=== PATIENT | female | born 1945 | race Caucasian/White ===

== ENCOUNTER 2019-12-10 07:42 | Outpatient (REF) | payer MEDICARE, OTHER, SELFPAY ==
[2019-12-10 11:22] LABS: MANUAL DIFF FLAG NO
[2019-12-10 11:46] LABS: Basophils Percent Auto 0.6 % (0-2); Eosinophils Absolute Auto 0.1 X10*3/uL (0.0-0.4); Eosinophils Percent Auto 1.2 % (0-4); Hematocrit 38.3 % (37-47); Hemoglobin 12.4 g/dl (12.0-16.0); Imm Gran Abs Auto 0.01 X10*3/uL (0.00-0.03); Imm Gran Pct Auto 0.2 % (0.0-0.4); Lymphocytes Absolute Auto 1.6 X10*3/uL (1.2-4.9); Lymphocytes Percent Auto 24.9 % (20-40); Mean Corpuscular HGB Conc 32.4 g/dl (31.0-35.0); Mean Corpuscular Hemoglobin 26.8 pg (27.0-33.0); Mean Corpuscular Volume 82.7 fL (80-98); Mean Platelet Volume 10.7 fL (9.4-12.3); Monocytes Absolute Auto 0.6 X10*3/uL (0.1-1.2); Monocytes Percent Auto 8.9 % (2-11); Neutrophils Absolute Auto 4.2 X10*3/uL (2.0-8.3); Neutrophils Percent Auto 64.2 % (45-73); Platelet Count 263 X10*3/uL (160-400); Red Blood Count 4.63 X10*6/uL (4.20-5.50); Red Cell Distribution Width 14.1 % (11.0-16.0); White Blood Count 6.5 X10*3/uL (4.8-10.8)
[2019-12-10 11:58] LABS: Estimated Average Glucose 134 mg/dL; Hemoglobin A1c % 6.3 %
[2019-12-10 11:59] LABS: Alanine Aminotransferase 11 U/L (0-31); Albumin Level 4.2 g/dL (3.5-5.0); Alkaline Phosphatase 64 U/L (39-117); Anion Gap 16 (12-20); Aspartate Amino Transferase 14 U/L (5-31); Bilirubin Total 0.3 mg/dL (0.0-1.0); Blood Urea Nitrogen 16 mg/dL (9-16); Calcium 8.7 mg/dL (8.4-10.2); Carbon Dioxide 24 mmol/L (22-29); Chloride 106 mmol/L (96-108); Cholesterol 159 mg/dL; Estimated Glomerular Filt Rate > 60; Glucose Fasting 130 mg/dL (60-99); HDL Cholesterol 56 mg/dL; LDL Cholesterol Calculated 86 mg/dl; Potassium 4.7 mmol/l (3.3-5.1); Sodium 141 mmol/L (135-145); Total Protein 6.9 g/dL (6.5-8.0); Triglycerides 86 mg/dL
[2019-12-10 12:21] LABS: T4 Thyroxine 9.6 ug/dL (4.5-12.0); Thyroid Stimulating Hormone 1.47 mIU/mL (0.32-4.0)
[2019-12-10 12:34] LABS: Creatinine Urine 92.85 mg/dL; Microalbum/Creatinine Ratio Ur 7.5 ug/mg cr
== END 2019-12-10 07:43 | disposition home or self-care (01) ==
LOC: HO.HMGCLDS 07:42
PROVIDERS: PCP Internal Medicine; Visit Provider Internal Medicine
DX: E11.65 Type 2 diabetes mellitus with hyperglycemia (principal); E66.9 Obesity, unspecified; I10 Essential (primary) hypertension; E78.00 Pure hypercholesterolemia, unspecified; C34.90 Malignant neoplasm of unspecified part of unspecified bronchus or lung
CPT/HCPCS: 36415; 80053; 80061; 82043; 83036; 84436; 84443; 85025

== ENCOUNTER 2019-12-25 15:30 | Outpatient (REF) | payer MEDICARE, OTHER, SELFPAY ==
--- NOTE | 2019-12-25 15:34 | US_ITS ---
EXAMINATION: US EXTRACRANIAL CAROTID DUPLEX, BILATERAL CLINICAL INFORMATION: Peripheral vascular disease. Concern for carotid artery stenosis. COMPARISON: CT chest on 09/30/2019 TECHNIQUE: Real-time ultrasound and Doppler techniques (integrating B-mode 2-D vascular images, Doppler spectral analysis and color-flow Doppler imaging) were utilized to interrogate the extracranial carotid arteries, the vertebral arteries and proximal subclavian arteries bilaterally. The degree of stenosis is determined by criteria similar to NASCET. FINDINGS: Right Side: 1. There is mild atherosclerotic plaque seen in the bifurcation/proximal ICA region. 2. The common carotid artery PSV proximally is 94.4 cm/s and distally 72.7 cm/s. 3. The proximal internal carotid artery velocities are 47.4 cm/s systolic and 10.9 cm/s diastolic. 4. The proximal external carotid artery PSV is 79.2 cm/s. 5. The vertebral artery shows 63.3 flow. 6. The subclavian artery waveforms are 70.8. Left Side: 1. There is mild atherosclerotic plaque seen in the bifurcation/proximal ICA region. 2. The common carotid artery PSV proximally is 63.4 cm/s and distally 50.6 cm/s. 3. The proximal internal carotid artery velocities are 46.4 cm/s systolic and 15.8 cm/s diastolic. 4. The proximal external carotid artery PSV is 61.5 cm/s. 5. The vertebral artery shows antegrade flow. 6. The subclavian artery waveforms are normal. US/US carotid duplex BI IMPRESSION: 1. RIGHT: Minimal, non-hemodynamically significant stenosis of the proximal right internal carotid artery corresponding to a 0-49% stenosis by velocity criteria. 2. LEFT: Minimal, non-hemodynamically significant stenosis of the proximal left internal carotid artery corresponding to a 0-49% stenosis by velocity criteria.
== END 2019-12-25 15:31 | disposition home or self-care (01) ==
LOC: HO.HMGCX 15:30
PROVIDERS: PCP Internal Medicine; Visit Provider Internal Medicine
DX: I72.0 Aneurysm of carotid artery (principal); I73.9 Peripheral vascular disease, unspecified; E78.00 Pure hypercholesterolemia, unspecified
CPT/HCPCS: 93880

== ENCOUNTER 2020-04-15 11:21 | Outpatient (REF) | payer MEDICARE, OTHER, SELFPAY ==
--- NOTE | ~2020-04-15 | CT_ITS ---
EXAMINATION: CT CHEST WITHOUT CONTRAST CLINICAL INFORMATION: C34.12 - Malignant neoplasm of upper lobe, left bronchus. History squamous cell cancer. COMPARISON: CT chest noncontrast 09/30/2019, 03/27/2019 TECHNIQUE: Multidetector volumetric CT imaging of the chest was done. Axial MIP volume rendering provided. Sagittal and coronal reformatted images were obtained. This CT examination was performed using dose optimization techniques as appropriate, variously including the following: *Automated exposure control *Adjustment of mA and/or kV according to patient size (this includes techniques or standardized protocols for targeted exams where dose is matched to indication/reason for exam; i.e. extremities or head) *Use of iterative reconstruction technique DLP: 186 mGy-cm FINDINGS: LUNGS: There is been prior left upper lobectomy. Subpleural nodule lateral left lower lobe series 7/320 average dimension 4 mm is without significant change from the prior exams. The right lung has at least 4 nodules under 4 mm, stable. There is no new mass or nodule. Again, there are some fine bilateral accentuated subpleural reticular markings suggesting underlying interstitial lung disease. There is some geographic mosaic perfusion suggesting small airways disease. There is no central endobronchial lesion or bronchiectasis. No lobar or segmental airspace consolidation or interval groundglass opacity. MEDIASTINUM: No hilar or mediastinal adenopathy. No pericardial effusion. Thoracic aorta normal in caliber. Borderline sliding hiatal hernia. PLEURA: There is no pleural effusion. No pleural mass or thickening. AXILLA: No axillary or supraclavicular adenopathy. UPPER ABDOMEN: Gallstones and bilateral renal cysts again noted. OSSEOUS STRUCTURES: Mild degenerative changes thoracic spine. No suspicious bony lesion. CT/CT chest wo con IMPRESSION: Scattered small nodularity similar to prior exam. No interval enlargement or new nodularity. No adenopathy or effusion.
== END 2020-04-15 11:22 | disposition home or self-care (01) ==
LOC: HO.CT 11:21
PROVIDERS: Visit Provider Surgery
DX: C34.12 Malignant neoplasm of upper lobe, left bronchus or lung (principal)
CPT/HCPCS: 71250

== ENCOUNTER → 2020-04-17 09:20 | Outpatient (BNVA) | payer MEDICARE, OTHER, SELFPAY | PROVIDERS: PCP Internal Medicine; Visit Provider Surgery | DX: C34.12 Malignant neoplasm of upper lobe, left bronchus or lung (principal); Z79.82 Long term (current) use of aspirin; Z79.899 Other long term (current) drug therapy | CPT/HCPCS: 99212 ==

== ENCOUNTER 2020-08-03 08:49 | Outpatient (REF) | payer MEDICARE, OTHER, SELFPAY ==
[2020-08-03 11:23] LABS: MANUAL DIFF FLAG NO
[2020-08-03 11:30] LABS: Basophils Percent Auto 0.5 % (0-2); Eosinophils Absolute Auto 0.1 X10*3/uL (0.0-0.4); Eosinophils Percent Auto 1.6 % (0-4); Hematocrit 39.8 % (37-47); Hemoglobin 13.2 g/dl (12.0-16.0); Imm Gran Abs Auto 0.02 X10*3/uL (0.00-0.03); Imm Gran Pct Auto 0.3 % (0.0-0.4); Lymphocytes Absolute Auto 1.5 X10*3/uL (1.2-4.9); Lymphocytes Percent Auto 23.8 % (20-40); Mean Corpuscular HGB Conc 33.2 g/dl (31.0-35.0); Mean Corpuscular Volume 81.4 fL (80-98); Mean Platelet Volume 10.9 fL (9.4-12.3); Monocytes Absolute Auto 0.5 X10*3/uL (0.1-1.2); Monocytes Percent Auto 7.6 % (2-11); Neutrophils Absolute Auto 4.3 X10*3/uL (2.0-8.3); Neutrophils Percent Auto 66.2 % (45-73); Platelet Count 257 X10*3/uL (160-400); Red Blood Count 4.89 X10*6/uL (4.20-5.50); Red Cell Distribution Width 14.6 % (11.0-16.0); White Blood Count 6.4 X10*3/uL (4.8-10.8)
[2020-08-03 12:11] LABS: Estimated Average Glucose 131 mg/dL; Hemoglobin A1c % 6.2 %
[2020-08-03 12:13] LABS: Alanine Aminotransferase 11 U/L (0-31); Albumin Level 4.3 g/dL (3.5-5.0); Alkaline Phosphatase 60 U/L (39-117); Anion Gap 12 (12-20); Aspartate Amino Transferase 15 U/L (5-31); Bilirubin Total 0.6 mg/dL (0.0-1.0); Blood Urea Nitrogen 15 mg/dL (9-16); Calcium 9.8 mg/dL (8.4-10.2); Carbon Dioxide 27 mmol/L (22-29); Chloride 109 mmol/L (96-108); Cholesterol 167 mg/dL; Estimated Glomerular Filt Rate > 60; Glucose Random 117 mg/dL (60-115); HDL Cholesterol 56 mg/dL; LDL Cholesterol Calculated 91 mg/dl; Potassium 4.8 mmol/L (3.3-5.1); Sodium 143 mmol/L (135-145); Total Protein 7.1 g/dL (6.5-8.0); Triglycerides 102 mg/dL
[2020-08-03 12:14] LABS: Free T4 (Free Thyroxine) 1.16 ng/dL (0.71-1.85)
== END 2020-08-03 08:50 | disposition home or self-care (01) ==
LOC: HO.HMGCLDS 08:49
PROVIDERS: PCP Internal Medicine; Visit Provider Internal Medicine
DX: E11.65 Type 2 diabetes mellitus with hyperglycemia (principal); E78.00 Pure hypercholesterolemia, unspecified
CPT/HCPCS: 36415; 80053; 80061; 83036; 84439; 84443; 85025

== ENCOUNTER 2020-10-06 15:23 | Outpatient (REF) | payer MEDICARE, OTHER, SELFPAY ==
--- NOTE | ~2020-10-06 | CT_ITS ---
EXAMINATION: CT CHEST WITHOUT CONTRAST CLINICAL INFORMATION: Malignant neoplasm left upper lobe COMPARISON: Previous chest CT scans most recent 04/15/2020 TECHNIQUE: Multidetector volumetric CT imaging of the chest was done. Axial MIP volume rendering provided. Sagittal and coronal reformatted images were obtained. This CT examination was performed using dose optimization techniques as appropriate, variously including the following: *Automated exposure control *Adjustment of mA and/or kV according to patient size (this includes techniques or standardized protocols for targeted exams where dose is matched to indication/reason for exam; i.e. extremities or head) *Use of iterative reconstruction technique DLP: 165 mGy-cm FINDINGS: LUNGS: There are stable postsurgical changes following left upper lobe lobectomy. There are small pulmonary nodules that are stable. Largest pulmonary nodule measures 5 mm in the left lower lobe axial image 306 series 4. No new pulmonary nodule is seen. There is evidence of emphysema. There is evidence of interstitial lung disease with increased peripheral reticulation, increased parenchymal attenuation and traction bronchiolectasis. This does not appear appreciably changed. MEDIASTINUM: There are small mediastinal lymph nodes that are stable. No enlarged lymph nodes are seen. There is coronary artery calcification. Heart size is normal. There is a trace pericardial effusion. The thoracic aorta is normal in caliber. There is question of a wall thickening of the distal thoracic esophagus. PLEURA: There is mild left pleural thickening or tiny effusion. There is no right pleural effusion or pleural thickening. AXILLA: No lymphadenopathy. UPPER ABDOMEN: There is fullness of the left adrenal gland that is stable. There is a small left upper pole renal stone. There are small calcifications in the liver. This may be diverticulosis of the colon. OSSEOUS STRUCTURES: There are degenerative changes of the spine. CT/CT chest wo con IMPRESSION: Stable postsurgical changes following left upper lobe lobectomy. Stable small pulmonary nodules. Emphysema and interstitial lung disease. Question wall thickening of the distal thoracic esophagus.
== END 2020-10-06 15:24 | disposition home or self-care (01) ==
LOC: HO.CT 15:23
PROVIDERS: PCP Internal Medicine; Visit Provider Surgery
DX: C34.12 Malignant neoplasm of upper lobe, left bronchus or lung (principal)
CPT/HCPCS: 71250

== ENCOUNTER → 2020-10-16 11:03 | Outpatient (BNVA) | payer MEDICARE, OTHER, SELFPAY | PROVIDERS: PCP Internal Medicine; Visit Provider Surgery | DX: C34.12 Malignant neoplasm of upper lobe, left bronchus or lung (principal); Z79.899 Other long term (current) drug therapy; Z79.84 Long term (current) use of oral hypoglycemic drugs; Z90.2 Acquired absence of lung [part of] | CPT/HCPCS: 99212 ==

== ENCOUNTER 2020-10-26 12:37 | Emergency (ER) | payer MEDICARE, OTHER, SELFPAY ==
--- NOTE | 2020-10-26 | ECG_ITS ---
Test Reason : STROKE Blood Pressure : / mmHG Vent. Rate : 067 BPM Atrial Rate : 067 BPM P-R Int : 180 ms QRS Dur : 090 ms QT Int : 432 ms P-R-T Axes : 037 -02 028 degrees QTc Int : 456 ms Normal sinus rhythm Possible Left atrial enlargement Inferior infarct (cited on or before 08-AUG-2018) Cannot rule out Anterior infarct (cited on or before 08-AUG-2018) Abnormal ECG When compared with ECG of 08-AUG-2018 21:23, No significant change was found Referred By: Mj Young Electronically Signed By:OLGA LIDIA VINES
--- NOTE | ~2020-10-26 | CT_ITS ---
EXAMINATION: CT HEAD WITHOUT CONTRAST CLINICAL INFORMATION: Right facial droop COMPARISON: None TECHNIQUE: Contiguous axial imaging was performed from the skull base to vertex without intravenous administration of contrast. This CT examination was performed using dose optimization techniques as appropriate, variously including the following: *Automated exposure control *Adjustment of mA and/or kV according to patient size (this includes techniques or standardized protocols for targeted exams where dose is matched to indication/reason for exam; i.e. extremities or head) *Use of iterative reconstruction technique DLP: 672 mGy-cm FINDINGS: There is no evidence of acute intracranial hemorrhage or territorial infarction. No abnormal mass effect or midline shift is seen. Malave to white matter differentiation is well preserved. No extra-axial fluid collections are identified. The ventricles are normal in size. There is no abnormal attenuation within the brain parenchyma. The osseous structures and soft tissues are normal. The mastoid air cells and visualized portions of the paranasal sinuses are well aerated. CT/CT head/brain wo con IMPRESSION: Unremarkable exam.
[2020-10-26 13:35] VITALS: BP 170/100; PULSE 75; RESP 18; TEMP 36.6; O2SAT 100; BMI 30.4
--- NOTE | 2020-10-26 15:19 | ED_ITS ---
HPI - Neuro Symptoms/Deficit General Chief Complaint: Stroke Stated Complaint: possible Stroke Time Seen by Provider: 10/26/20 15:04 Source: patient Mode of arrival: ambulatory Limitations: no limitations History of Present Illness HPI Narrative: This is a 75-year-old female that presents from home 2 months of right-sided facial droop , that has worsened over the past week. She states that she is now unable to close her right eye, and at night she needs to close her eye to sleep. She is also complaining of intermittent right-sided neck pain, that feels like a spasm in nature that started around the same time but is worsening. At baseline she states she does not have the best vision, however over the past 2 months she has noted that her vision on her right side has been worsening. Nothing like this has ever happened to her before. Chest pain, shortness of breath, headaches, recent tick bites, recent fall, recent viral infections, fevers, chills, nausea, vomiting, abdominal pain. Past medical history significant for lung cancer, peripheral vascular disease, hypercholesterolemia, hypertension, diabetes. Onset (ago): month(s) (2) Location: right face History of same: No Severity: mild Relieving factors: none Exacerbating factors: none Context: gradual onset On Anticoagulants: Yes Related Data Home Medications Medication Instructions Recorded Confirmed aspirin 81 mg tablet,delayed 81 mg PO DAILY 12/17/19 10/16/20 release (Adult Low Dose Aspirin) Previous Rx's Medication Instructions Recorded glimepiride 4 mg tablet 4 mg PO DAILY #90 tab 03/24/20 lisinopril 2.5 mg tablet 2.5 mg PO DAILY #90 tab 03/24/20 metformin 1,000 mg tablet 1,000 mg PO BID #180 tab 03/24/20 artifi.tears(hypromellose)(PF) 0.3 1 drp OPHTHALMIC (EYE) Q1H PRN #10 10/26/20 % eye drops ml valacyclovir 1 gram tablet 1,000 mg PO TID 7 Days #21 tab 10/26/20 Allergies Allergy/AdvReac Type Severity Reaction Status Date / Time No Known Allergies Allergy Verified 08/12/20 12:29 [No Known Allergies*] Review of Systems Review of Systems: Yes all other systems are reviewed and are negative Constitutional: Constitutional: Denies body ache(s), Denies fatigue, Denies fever(s), Denies headache(s) and Denies malaise Eyes: Eyes: Reports change in vision (right eye ), Reports dry eyes (right ey e), Reports irritation (right eye) and Reports other (+ unable to close right eye ) ENT: Reports system reviewed and no additional complaints, except as documented, Reports as per HPI, Denies headache(s) and Reports neck pain (intermittent spasms to right side of neck) Cardiovascular: Cardiovascular: Reports no additional cardiovascular complaints Respiratory: Respiratory: Reports no additional respiratory complaints Gastrointestinal: Gastrointestinal: Reports no additional gastrointestinal complaints Genitourinary: Genitourinary: Reports no additional female genitourinary complaints Musculoskeletal: Musculoskeletal: Reports neck pain (intermittent spasms to right side of neck) Neurologic: Denies headache(s) Endocrine: Endocrine: Denies fatigue PMFSH Past Medical History Attestation statement: The following information was validated with the patient. Source: old records reviewed Medical History (Updated 10/26/20 @ 16:55 by Mj Young MD) Adrenal adenoma Carotid aneurysm, left Cholelithiasis Hypercholesterolemia Hypertension Lung cancer (~2018) Type 2 diabetes mellitus with hyperglycemia Surgical History (Updated 10/16/20 @ 13:44 by Monie Bacon PA-C) History of cataract surgery (~2019) History of lobectomy of lung (~2018) Family History Family History Father No problems noted. Mother Stroke Social History Social History Alcohol intake: never Patient Tobacco Use Status: Former Tobacco user Advance Directives: No Advance Directives Information Provided: No Physical Exam Vital Signs: Vital Signs: Last Vital Signs Temp 97.9 F 10/26/20 13:35 Pulse 75 10/26/20 13:35 Resp 18 10/26/20 13:35 BP 170/100 H 10/26/20 13:35 Pulse Ox 100 10/26/20 13:35 Body Mass Index 30.4 Const: General: cooperative and no acute distress Orientation/consciousness: oriented to person, oriented to place and oriented to time Limitations: no limitations HENMT: Head: Yes normal to inspection, Yes normocephalic and Yes atraumatic Ears: external ears normal General nose exam: Normal external nose present Face and sinus: No face symmetric and Yes other (Facial drooping to r. side of face, asymmetric wrinkling of forehead .) Mouth: Normal oral and palatal mucosa present Throat: Yes posterior oropharynx normal Eyes: General: appearance abnormal, both eyes Eyelids: Yes eyelid abnormality (Drooping of the eyelids noted on the right.), Yes lid lag (Right) and Yes other (Patient unable to close right eye.) Conjunctivae: conjunctivae normal Sclerae: sclerae normal Corneas: corneas normal Pupils: Equal, round and reactive pupils present EOM: EOMs intact bilaterally Direct Ophthalmoscopy: normal light reflex Neck: Neck: Yes normal visual inspection, Yes no lymphadenopathy, Yes trachea midline and Yes supple Chest: Chest palpation & inspection: normal inspection of the chest and normal palpation of entire chest wall Resp: Effort & Inspection: normal respiratory effort and able to speak in complete sentences Auscultation: clear to auscultation bilaterally Cardio: Rate: regular rate Rhythm: regular rhythm Heart sounds: S1 normal heart sound present, S2 normal heart sound present and no murmurs GI: Inspection: Yes normal to inspection Palpation (GI): Soft to palpation, nontender and no guarding Auscultation: normal bowel sounds : General: Yes no CVA tenderness Back/Spine/Pelvis: Back: no CVA tenderness Skin: General skin exam: no rashes or lesions noted Neuro: General: oriented to person, oriented to place, oriented to time, moves all extremities and CN's II-XI intact bilaterally (CN 7 palsey with right sided facial droop) Cranial nerves: Yes CN's II-XII intact bilaterally and Yes Equal, round and reactive pupils present Cognition (Neuro): normal cognition Gait exam (Neuro): Normal gait present Motor exam (neuro): 5/5 motor strength present throughout Sensory Exam: Normal double simultaneous stimulation for sensation Coordination: [id number] test normal Extrem: General: Yes normal to inspection Right upper extremity: normal to inspection Left upper extremity: normal to inspection Right lower extremity: normal to inspection Left lower extremity: normal to inspection Psych: Appearance: grossly normal Mental Status: mental status grossly normal Speech and movement: Normal speech and movement present Affect: normal affect Attitude: cooperative Thought process: Normal thought process present Thought content: Normal thought content present Course Course Course Narrative: This is a 75-year-old female but presenting from home with complaints of 2 months of facial drooping, and inability to close the right eye. She states that this has progressively worsened. This is never happened to her before. Is for right-sided facial drooping, and inability to close the right eye. She is able to wrinkle her forehead, however left cell on the right-hand side. Sensation intact. 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 Unlikely that this is a stroke. However a CT will be ordered to rule out stoke Reevaluation(s) Reevaluation #1: Reviewed patients CT no signs of stroke, patients history, physical and laboratory studies consistent with [place] Palsy. Patient symptoms >3 days prednisone not indicated she will be DC home on valacyclovir 1000mg TID for one week. Safe for DC home with follow up with PCP in two days Time: 16:57 [facility] - Neuro Symptoms/Deficit Imaging Data CT scan - head: Attestation: I personally reviewed and interpreted this imaging study as follows: Radiologist's impression: FINDINGS: There is no evidence of acute intracranial hemorrhage or territorial infarction. No abnormal mass effect or midline shift is seen. Malave to white matter differentiation is well preserved. No extra-axial fluid collections are identified. The ventricles are normal in size. There is no abnormal attenuation within the brain parenchyma. The osseous structures and soft tissues are normal. The mastoid air cells and visualized portions of the paranasal sinuses are well aerated. ? CT/CT head/brain wo con IMPRESSION: Unremarkable exam. Discharge Plan Discharge Clinical Impression: [place] palsy Patient Disposition: Home, Self-Care Instructions: [place] Palsy (ED) Additional Instructions: Apply two drops of artificial tears to right eye every hour while awake to prevent dryness and irritation to eye Apply a cup eye patch to eye while sleeping at night to prevent scratching your eye You were prescribed an antiviral medication valacyclovir take this medication three times a day for one week. Follow up with PCP in two days Tick borne panel pending at this time, it is important you follow up with your doctor to review these results. If you have lyme disease you will have to be treated. Return to the emergency department with new or worsening symptoms Prescriptions: New valacyclovir 1 gram tablet 1,000 mg PO TID 7 Days Qty: 21 RF: 0 artifi.tears(hypromellose)(PF) 0.3 % drops 1 drp ophthalmic (eye) Q1H PRN (Reason: dry eye(s)) Qty: 10 RF: 0 No Action aspirin [Adult Low Dose Aspirin] 81 mg tablet,delayed release (DR/EC) 81 mg PO DAILY RF: 0 metformin 1,000 mg tablet 1,000 mg PO BID Qty: 180 RF: 3 lisinopril 2.5 mg tablet 2.5 mg PO DAILY Qty: 90 RF: 3 glimepiride 4 mg tablet 4 mg PO DAILY Qty: 90 RF: 3 Referrals: Po,Rigoberto Lugo MD [Primary Care Provider] - 2 days
[2020-10-28 16:37] LABS: A. Phagocytphilium DNA,RT-PCR NOT DETECTED (NOT DETECTED); Babesia Microti DNA, RT-PCR NOT DETECTED (NOT DETECTED); Borrelia Miyamotoi,DNA RT-PCR NOT DETECTED (NOT DETECTED); E.Chaffeensis DNA RT-PCR NOT DETECTED (NOT DETECTED); Lyme(Borrelia ssp)DNA RT-PCR NOT DETECTED (NOT DETECTED); Source-Tick borne disease BLOOD
== END 2020-10-26 17:53 | disposition home or self-care (01) ==
PROVIDERS: Emergency Provider Emergency Medicine Emergency Medical Services; PCP Internal Medicine
DX: G51.0 Bell's palsy (principal); R06.02 Shortness of breath; R07.9 Chest pain, unspecified; Z79.899 Other long term (current) drug therapy; Z79.82 Long term (current) use of aspirin
CPT/HCPCS: 36415; 70450; 87798; 87801; 93005; 99283; 99284

== ENCOUNTER 2021-06-23 08:35 | Outpatient (REF) | payer MEDICARE, OTHER, SELFPAY ==
[2021-06-23 11:39] LABS: MANUAL DIFF FLAG NO
[2021-06-23 11:43] LABS: Basophils Percent Auto 0.5 % (0-2); Eosinophils Absolute Auto 0.2 X10*3/uL (0.0-0.4); Eosinophils Percent Auto 2.2 % (0-4); Hematocrit 38.5 % (37.0-47.0); Hemoglobin 12.6 g/dl (12.0-16.0); Imm Gran Abs Auto 0.02 X10*3/uL (0.00-0.03); Imm Gran Pct Auto 0.3 % (0.0-0.4); Lymphocytes Absolute Auto 1.3 X10*3/uL (1.2-4.9); Lymphocytes Percent Auto 17.9 % (20-40); Mean Corpuscular HGB Conc 32.7 g/dl (31.0-35.0); Mean Corpuscular Hemoglobin 27.3 pg (27.0-33.0); Mean Corpuscular Volume 83.5 fL (80.0-98.0); Mean Platelet Volume 10.5 fL (9.4-12.3); Monocytes Absolute Auto 0.8 X10*3/uL (0.1-1.2); Monocytes Percent Auto 10.8 % (2-11); Neutrophils Absolute Auto 5.1 x10*3/uL (2.0-8.3); Neutrophils Percent Auto 68.3 % (45-73); Platelet Count 249 X10*3/uL (160-400); Red Blood Count 4.61 X10*6/uL (4.20-5.50); White Blood Count 7.4 X10*3/uL (4.8-10.8)
[2021-06-23 12:00] LABS: Alanine Aminotransferase 21 U/L (0-31); Albumin Level 4.3 g/dL (3.5-5.0); Alkaline Phosphatase 59 U/L (39-117); Anion Gap 14 (12-20); Aspartate Amino Transferase 21 U/L (5-31); Bilirubin Total 0.5 mg/dL (0.0-1.0); Blood Urea Nitrogen 16 mg/dL (9-16); Calcium 10.2 mg/dL (8.4-10.2); Carbon Dioxide 24 mmol/L (22-29); Chloride 108 mmol/L (96-108); Cholesterol 161 mg/dL; Estimated Glomerular Filt Rate 58; Glucose Random 168 mg/dL (60-115); HDL Cholesterol 46 mg/dL; LDL Cholesterol Calculated 90 mg/dl; Potassium 4.8 mmol/L (3.3-5.1); Sodium 141 mmol/L (135-145); Total Protein 7.4 g/dL (6.5-8.0); Triglycerides 128 mg/dL
[2021-06-23 12:22] LABS: Free T4 (Free Thyroxine) 1.32 ng/dL (0.71-1.85)
[2021-06-23 14:36] LABS: Creatinine Urine 129.07 mg/dL; Microalbum/Creatinine Ratio Ur 10.8 ug/mg cr
[2021-06-23 15:15] LABS: Folate > 20.0 ng/mL (> or = 4.0)
[2021-06-23 15:53] LABS: Vitamin B12 210 pg/mL (200-900)
== END 2021-06-23 08:36 | disposition home or self-care (01) ==
LOC: HO.HMGCLDS 08:35
PROVIDERS: PCP Internal Medicine; Visit Provider Internal Medicine
DX: E11.65 Type 2 diabetes mellitus with hyperglycemia (principal); E78.00 Pure hypercholesterolemia, unspecified; M81.0 Age-related osteoporosis without current pathological fracture
CPT/HCPCS: 36415; 80053; 80061; 82043; 82306; 82607; 82746; 84439; 84443; 85025

== ENCOUNTER 2021-09-20 12:53 | Outpatient (REF) | payer MEDICARE, OTHER, SELFPAY ==
--- NOTE | ~2021-09-20 | CT_ITS ---
EXAMINATION: CT CHEST WITHOUT CONTRAST CLINICAL INFORMATION: Malignant neoplasm of upper lobe, left bronchus. COMPARISON: CT chest 10/06/2020. TECHNIQUE: Multidetector volumetric CT imaging of the chest was done. Axial MIP volume rendering provided. Sagittal and coronal reformatted images were obtained. This CT examination was performed using dose optimization techniques as appropriate, variously including the following: *Automated exposure control *Adjustment of mA and/or kV according to patient size (this includes techniques or standardized protocols for targeted exams where dose is matched to indication/reason for exam; i.e. extremities or head) *Use of iterative reconstruction technique DLP: 148 mGy-cm. FINDINGS: DECORATOR CONSULTANT: Unremarkable. LUNGS: Post left upper lobectomy changes with loss of left hemithorax and mild ipsilateral mediastinal shift is noted. There is diffuse ground-glass opacity and reticular interstitial changes in both lower lobes slightly greater on the left side. There are subpleural reticular interstitial changes in right upper lobe, right middle lobe and right lower lobe. There are subcentimeter small pulmonary nodules which are stable. The largest nodule is a 7 mm pulmonary nodule, subpleural based, in left lower lobe axial image 321/5. There is a 5 mm nodule right lower lobe axial image 342/5, previously measured 4 mm. There is no bronchiectasis or bronchial secretions. There are scattered parenchymal cystic changes are seen in both lower lobes and right upper lobe. MEDIASTINUM: The thyroid lobes are symmetrical an heterogeneous with likely nodules. The isthmus is prominent with likely nodule. Central trachea and the bronchi appear widely patent. There is atherosclerotic changes of the thoracic aorta without aneurysmal dilatation. There are small shotty lymph nodes in the mediastinum. Heart size is within normal limits. There are coronary artery calcifications present. No pericardial effusion seen. PLEURA: There is minimal left posterior pleural thickening. No evidence of effusion. AXILLA: No abnormal-sized lymph nodes. The chest wall is unremarkable. UPPER ABDOMEN: Visualized liver, spleen and adrenal glands and pancreas are unremarkable. OSSEOUS STRUCTURES: No aggressive lytic or sclerotic process seen. CT/CT chest wo con IMPRESSION: Status post left upper lobectomy changes. There are ground-glass changes, reticular interstitial prominence and subcentimeter pulmonary nodules in both lower lobes. Subpleural reticular interstitial changes are seen throughout the lungs. The largest pulmonary nodule is 7 mm left lower lobe and a 5 mm nodule right lower lobe, minimally larger from previous study. No new nodules seen. No abnormal mediastinal or axillary lymphadenopathy. Heterogeneous thyroid gland with a nodule of the isthmus. Fleischner guidelines were followed.
== END 2021-09-20 12:54 | disposition home or self-care (01) ==
LOC: HO.CT 12:53
PROVIDERS: PCP Internal Medicine; Visit Provider Surgery
DX: C34.12 Malignant neoplasm of upper lobe, left bronchus or lung (principal)
CPT/HCPCS: 71250

== ENCOUNTER → 2021-10-15 11:01 | Outpatient (BNVA) | payer MEDICARE, OTHER, SELFPAY | PROVIDERS: PCP Internal Medicine; Visit Provider Surgery | DX: C34.12 Malignant neoplasm of upper lobe, left bronchus or lung (principal) | CPT/HCPCS: 99212 ==

== ENCOUNTER 2021-10-25 09:52 | Inpatient (IN) | payer MEDICARE, OTHER, SELFPAY ==
[2021-10-25] VITALS (8 sets, daily range): BP systolic 112–155; BP diastolic 71–91; PULSE 77–104; RESP 17–24; TEMP 36.6–36.9; O2SAT 72–95; BMI 28.7
--- NOTE | ~2021-10-25 | XR_ITS ---
EXAMINATION: XR CHEST CLINICAL INFORMATION: Pneumonitis. COMPARISON: CTA chest and chest radiograph dated 10/25/2021. TECHNIQUE: Frontal and lateral views of the chest were obtained. FINDINGS: The heart, great vessels, pulmonary vasculature and mediastinum are stable. There is persistent airspace disease seen at the medial left base. There is lesser right upper lobe interstitial infiltrate, without focal resolution. Mild pulmonary vascular congestion is noted. There is bilateral bronchiolar wall thickening. No pleural effusion or pneumothorax is seen. There is no acute osseous abnormalities. XR/XR chest 2V IMPRESSION: 1. There is persistent airspace disease at the medial right base, and lesser right upper lobe interstitial infiltrate is noted. 2. There is bilateral bronchiolar wall thickening, which can be associated with acute bronchiolitis or reactive airways disease.
--- NOTE | ~2021-10-25 | CT_ITS ---
EXAMINATION: CT ANGIOGRAM OF THE CHEST WITH AND WITHOUT CONTRAST (CT PULMONARY ANGIOGRAM FOR PE) CLINICAL INFORMATION: Shortness of breath, hypoxia, and tachycardia. COMPARISON: CT scans dating between September 20, 2021 and August 08, 2018. TECHNIQUE: Prior to contrast administration, noncontrast localization images were obtained. Subsequently, multidetector volumetric imaging was performed from the thoracic inlet to below the diaphragms following the administration of 65 mL Omnipaque 350 intravenous contrast. No contrast reaction reported Sagittal, coronal, and MIP oblique sagittal reformatted images were obtained on the CT workstation, uploaded to PACS, and reviewed. This CT examination was performed using dose optimization techniques as appropriate, variously including the following: *Automated exposure control *Adjustment of mA and/or kV according to patient size (this includes techniques or standardized protocols for targeted exams where dose is matched to indication/reason for exam; i.e. extremities or head) *Use of iterative reconstruction technique Total exam dose-length product 246 mGy-cm FINDINGS: QUALITY OF STUDY/CONTRAST BOLUS: Satisfactory. PULMONARY ARTERIES: No central or segmental pulmonary emboli. THORACIC AORTA: No aneurysm or dissection. LUNG/PLEURA: Status post left upper lobectomy with associated shift of the mediastinum toward the left, unchanged. Extensive, diffuse, bilateral interstitial prominence with Sarwat B-lines and superimposed groundglass lung parenchymal densities, worse compared with September 20, 2021. Mild bibasilar bronchiectasis. Small bilateral pleural effusions, right greater than left. No pneumothorax. MEDIASTINUM: Subcarinal node measuring up to approximately 2 cm in short axis (image 22, series 5). On most recent prior this measured approximately 1.1 cm. Approximately 1.3 cm or less, bilateral hilar nodes. These are difficult to compare with priors, which were performed without the benefit of intravenous contrast Heart upper normal in size to mildly enlarged. No pericardial effusion. No evidence of septal bowing or right heart strain. CHEST WALL/AXILLA: No axillary or internal mammary lymphadenopathy by size criteria. OSSEOUS STRUCTURES: No acute finding. UPPER ABDOMEN: Partially imaged gallstone. No evidence of pericholecystic inflammatory change. Nodular adrenal glands, bilaterally, unchanged over at least 3 years. No reflux of contrast into the hepatic veins to suggest elevated right heart pressures. CT/CT angio chest PE protocol IMPRESSION: No evidence of pulmonary embolism. Status post left upper lobectomy with associated shift of the mediastinum toward the left, unchanged compared with most recent prior study dated September 20, 2021. Extensive, diffuse, bilateral interstitial prominence with Sarwat B-lines and superimposed groundglass lung parenchymal densities, worse compared with September 20, 2021. Small bilateral pleural effusions, right greater than left. Mediastinal and bilateral hilar adenopathy. Mild bibasilar traction bronchiectasis. Differential diagnosis of these findings is extensive and includes, but is not limited to, some combination of pulmonary edema, chronic interstitial fibrotic changes and small airways disease, lymphangitic spread of tumor, etc. VTE: negative
--- NOTE | ~2021-10-25 | XR_ITS ---
EXAMINATION: XR CHEST CLINICAL INFORMATION: Shortness of breath COMPARISON: Chest radiograph 09/21/2018, CT chest noncontrast 09/20/2021 TECHNIQUE: Portable upright AP view of the chest was obtained. FINDINGS: There are subtle groundglass opacities bilateral lung. There is no confluent lobar or segmental airspace consolidation or visible effusion. There is mild coarsening of the bronchovascular markings. No engorgement of the central vasculature. Heart size within normal. XR/XR chest 1V IMPRESSION: Subtle scattered bilateral groundglass opacities. No effusion.
--- NOTE | ~2021-10-25 | XR_ITS ---
EXAMINATION: XR CHEST CLINICAL INFORMATION: Hypoxia COMPARISON: 10/27/2021 TECHNIQUE: 2 views of the chest were obtained. FINDINGS: Airspace opacities in the left mid and lower lung zone with air bronchograms are again evident. Pulmonary vascular congestion and redistribution are suspected. There are no gross pleural effusions. The cardiomediastinal silhouette is stable. XR/XR chest 2V IMPRESSION: 1. No significant change in left lower lobe and lingular infiltrative changes. 2. Probable pulmonary vascular congestion and redistribution.
--- NOTE | 2021-10-25 10:11 | ECG_ITS ---
Test Reason : SOB Blood Pressure : / mmHG Vent. Rate : 093 BPM Atrial Rate : 093 BPM P-R Int : 164 ms QRS Dur : 078 ms QT Int : 396 ms P-R-T Axes : 041 -11 011 degrees QTc Int : 492 ms Normal sinus rhythm Inferior infarct (cited on or before 08-AUG-2018) Anterolateral infarct (cited on or before 08-AUG-2018) Abnormal ECG When compared with ECG of 26-OCT-2020 16:34, T wave inversion now evident in Anterior leads Referred By: Generic ED Physician Electronically Signed By:OLGA LIDIA VINES
--- NOTE | 2021-10-25 10:27 | ED.GENADULT ---
HPI - General Adult General Chief complaint: Upper Respiratory Symptoms Stated complaint: Difficulty breathing Time Seen by Provider: 10/25/21 10:24 Source: patient and family (Daughter) Mode of arrival: ambulatory Limitations: no limitations History of Present Illness HPI narrative: 76-year-old female came in for evaluation of shortness of breath. Patient's symptoms started about a week ago progressively getting worse, patient came to the ED after symptoms is becoming very significant. SOB mostly with exertion, relieved by rest, patient cannot sleep on her back for coughing do not report increase of weight but some swelling in both legs. No fever, no chills, no sick contact, no recent travel, no lower extremities tenderness. Patient is former smoker did not smoke for 50 years, patient with history of lung cancer had left upper lobectomy 3 years ago, 3 years follow-up with Dr. Hernandez was few weeks ago with repeat CT of the chest was unremarkable. Patient initially walked to the emergency room was short of breath and she was satting 77% on room air which was quickly improved by applying 5 L of nasal cannula oxygen in the ED. Related Data Previous Rx's Medication Instructions Recorded glimepiride 4 mg tablet 4 mg PO DAILY 90 days #90 tabs 03/18/21 metformin 1,000 mg tablet 1,000 mg PO BID #180 tabs 03/18/21 cholecalciferol (vitamin D3) 50 50 mcg PO DAILY 90 days #90 caps 06/30/21 mcg (2,000 unit) capsule cyanocobalamin (vitamin B-12) 1,000 mcg PO DAILY 90 days #90 caps 06/30/21 1,000 mcg capsule Allergies Allergy/AdvReac Type Severity Reaction Status Date / Time No Known Allergies Allergy Verified 10/15/21 11:27 [No Known Allergies*] Review of Systems Review of Systems: All other systems are reviewed and are negative Constitutional: Reports as per HPI and Reports no additional constitutional complaints Eyes: Reports as per HPI and Reports no additional eye complaints Reports system reviewed and no additional complaints, except as documented Cardiovascular: Reports as per HPI and Reports no additional cardiovascular complaints Respiratory: Reports as per HPI and Reports no additional respiratory complaints Gastrointestinal: Reports as per HPI and Reports no additional gastrointestinal complaints Genitourinary: Reports no additional female genitourinary complaints Musculoskeletal: Reports no additional musculoskeletal complaints Skin/Breast: Reports system reviewed and no additional complaints, except as docu Psychiatric: Reports no additional psychiatric complaints Endocrine: Reports no additional endocrine complaints Hematologic/Lymphatic: Reports no additional hematologic/lymphatic complaints Allergic/Immunologic: Reports no additional allergic/immunologic complaints Reports system reviewed and no additional complaints, except as documented and Reports Abnormal speech present [facility] Past Medical History Medical History Adrenal adenoma Carotid aneurysm, left Cholelithiasis Hypercholesterolemia Hypertension Lung cancer (~2018) Type 2 diabetes mellitus with hyperglycemia Surgical History History of cataract surgery (~2019) History of lobectomy of lung (~2018) Family History Family History Father No problems noted. Mother Stroke Social History Social History Housing: House Alcohol intake: never Patient Tobacco Use Status: Former Tobacco user Tobacco use type: Cigarette e-Cigarette/Vaping Use: Never Used Second Hand Smoke Exposure: No Advance Directives: No Advance Directives Information Provided: Yes Current occupational status: retired Cognitive needs: No Hearing needs: No Vision needs: Yes Physical Exam ED Vital Signs: Vital Signs - 24 hr 10/25/21 09:55 10/25/21 10:15 10/25/21 13:00 Temperature 98 F 97.8 F 98 F Pulse Rate 101 H 93 82 Respiratory Rate 24 H 22 H 17 Blood Pressure 155/88 H 133/89 148/85 H Pulse Oximetry 72 L 94 94 Oxygen Delivery Method Room Air Nasal Cannula Nasal Cannula Oxygen Flow Rate 5 5 10/25/21 14:08 Temperature 98.0 F Pulse Rate 79 Respiratory Rate 18 Blood Pressure 138/91 H Pulse Oximetry 95 Oxygen Delivery Method Nasal Cannula Oxygen Flow Rate 5 BMI result Body Mass Index 28.7 Vital signs have been reviewed as appeared to be correct. Blood pressure normal. Heart rate normal. Respiration rate normal. Temperature normal. Oxygen saturation normal. Appearance: Alert. Oriented X3. No acute distress. Head: Normal external exam. Normocephalic. Atraumatic. No Vines signs noted. No raccoon eyes noted Eyes: PERRLA. EOMI. Conjunctiva and sclera normal. Eyelids normal. ENT: TM's Normal. Pharynx normal. Uvula midline. Moist mucous membranes. No trismus noted. No drooling noted. No muffled voice noted. Neck: Normal inspection. Neck supple. FROM. No adenopathy. Thyroid Normal. No meningeal signs. No neck mass noted. CVS: Normal heart rate and rhythm. Heart sound normal. No murmurs noted. Pulses normal throughout. Respiratory: No respiratory distress. Painless inspiration. Breath sounds normal. No wheezes/rales/rhonchi noted. Chest nontender. No accessory muscle usage noted or decreased air movement noted. Abdomen: Soft and nontender. Bowel sounds normal in all 4 quadrants. No distention noted. No organomegaly noted. No visible injury noted. Back: No CVA tenderness. Full range of motion noted. Skin: Skin warm and dry. Normal skin color. Normal skin turgor. No rashes/lesions/lacerations noted. Extremities: +1 lower extremity edema. Extremities exhibit normal range of motion. Extremities nontender. Neuro: Oriented X 3. Cranial nerve exam: II-XII are grossly intact No motor deficit. No sensory deficit. Reflexes normal. Course Course Course Narrative: 76-year-old female history of lung cancer status post left upper lobectomy 3 years ago, came in with worsening of shortness of breath over a week more with exertional, found to be initially hypoxic with O2 sat 77% that improved with 5 L of oxygen and wrist in bed concern of PE and CTA was ordered which showed interstitial lung changes possible interstitial fibrosis and also some pulmonary edema. Will gently diuresis the patient, give 1 dose of Solu-Medrol, continue with 5 L of nasal cannula supplemental oxygen, no evidence of infectious process therefore no need for antibiotic at this point. Admit the patient for further cardiac/pulmonary evaluation. Medical Decision Making Medical Records Medical records reviewed: Yes I reviewed the patient's medical records. Lab Data Lab results reviewed: Yes I reviewed the patient's lab results. Result diagrams: 10/25/21 10:55 10/25/21 10:55 Labs: Lab Results 10/25/21 10/25/21 10/25/21 Range/Units 10:55 10:55 10:55 WBC 9.1 (4.8-10.8) X10*3/uL RBC 4.44 (4.20-5.50) X10*6/uL Hgb 12.2 (12.0-16.0) g/dl Hct 36.2 L (37.0-47.0) % MCV 81.5 (80.0-98.0) fL MCH 27.5 (27.0-33.0) pg MCHC 33.7 (31.0-35.0) g/dl RDW 14.9 (11.0-16.0) % Plt Count 290 (160-400) X10*3/uL MPV 10.0 (9.4-12.3) fL Immature Gran % (Auto) 0.3 (0.0-0.4) % Neut % (Auto) 80.5 H (45-73) % Lymph % (Auto) 12.1 L (20-40) % [place] % (Auto) 5.5 (2-11) % Eos % (Auto) 0.8 (0-4) % Baso % (Auto) 0.8 (0-2) % Lymph # (Auto) 1.1 L (1.2-4.9) X10*3/uL [place] # (Auto) 0.5 (0.1-1.2) X10*3/uL Eos # (Auto) 0.1 (0.0-0.4) X10*3/uL Baso # (Auto) 0.1 (0.0-0.2) X10*3/uL Abs Immat Gran (auto) 0.03 (0.00-0.03) X10*3/uL Absolute Neuts (auto) 7.4 (2.0-8.3) x10*3/uL Absolute Nucleated RBC 0.000 (0.0-0.012) X10*3/uL Nucleated RBC % (auto) 0.0 (0.0-0.2) /100WBC D-Dimer High Sensitivty NG/ML Sodium 141 (135-145) mmol/L Potassium 4.2 (3.3-5.1) mmol/L Chloride 107 (96-108) mmol/L Carbon Dioxide 21 L (22-29) mmol/L Anion Gap 17 (12-20) BUN 12 (9-16) mg/dL Creatinine 0.96 (0.5-1.4) mg/dL Estim Creat Clear Calc 56.3 Estimated GFR 56 POC Glucose (60-115) mg/dL Random Glucose 179 H (60-115) mg/dL Lactic Acid 2.0 (0.5-2.0) mmol/L Calcium 9.5 D (8.4-10.2) mg/dL Total Bilirubin 0.7 (0.0-1.0) mg/dL Direct Bilirubin 0.3 (0.0-0.5) mg/dL AST 20 (5-31) U/L ALT 27 (0-31) U/L Alkaline Phosphatase 55 (39-117) U/L Troponin I High Sens (<3.5-17.0) ng/L B-Natriuretic Peptide (<100) pg/mL Total Protein 6.8 (6.5-8.0) g/dL Albumin 4.0 (3.5-5.0) g/dL Lipase 17 (8-78) U/L Influenza Type A (PCR) (Negative) Influenza Type B (PCR) (Negative) RSV RNA Qual (PCR) (Negative) SARS-CoV-2 RNA (RT-PCR) (Negative) 10/25/21 10/25/21 10/25/21 Range/Units 10:55 12:58 12:58 WBC (4.8-10.8) X10*3/uL RBC (4.20-5.50) X10*6/uL Hgb (12.0-16.0) g/dl Hct (37.0-47.0) % MCV (80.0-98.0) fL MCH (27.0-33.0) pg MCHC (31.0-35.0) g/dl RDW (11.0-16.0) % Plt Count (160-400) X10*3/uL MPV (9.4-12.3) fL Immature Gran % (Auto) (0.0-0.4) % Neut % (Auto) (45-73) % Lymph % (Auto) (20-40) % [place] % (Auto) (2-11) % Eos % (Auto) (0-4) % Baso % (Auto) (0-2) % Lymph # (Auto) (1.2-4.9) X10*3/uL [place] # (Auto) (0.1-1.2) X10*3/uL Eos # (Auto) (0.0-0.4) X10*3/uL Baso # (Auto) (0.0-0.2) X10*3/uL Abs Immat Gran (auto) (0.00-0.03) X10*3/uL Absolute Neuts (auto) (2.0-8.3) x10*3/uL Absolute Nucleated RBC (0.0-0.012) X10*3/uL Nucleated RBC % (auto) (0.0-0.2) /100WBC D-Dimer High Sensitivty 230 NG/ML Sodium (135-145) mmol/L Potassium (3.3-5.1) mmol/L Chloride (96-108) mmol/L Carbon Dioxide (22-29) mmol/L Anion Gap (12-20) BUN (9-16) mg/dL Creatinine (0.5-1.4) mg/dL Estim Creat Clear Calc Estimated GFR POC Glucose 154 H (60-115) mg/dL Random Glucose (60-115) mg/dL Lactic Acid (0.5-2.0) mmol/L Calcium (8.4-10.2) mg/dL Total Bilirubin (0.0-1.0) mg/dL Direct Bilirubin (0.0-0.5) mg/dL AST (5-31) U/L ALT (0-31) U/L Alkaline Phosphatase (39-117) U/L Troponin I High Sens 12.9 (<3.5-17.0) ng/L B-Natriuretic Peptide 360 H (<100) pg/mL Total Protein (6.5-8.0) g/dL Albumin (3.5-5.0) g/dL Lipase (8-78) U/L Influenza Type A (PCR) (Negative) Influenza Type B (PCR) (Negative) RSV RNA Qual (PCR) (Negative) SARS-CoV-2 RNA (RT-PCR) (Negative) 10/25/21 Range/Units Unknown WBC (4.8-10.8) X10*3/uL RBC (4.20-5.50) X10*6/uL Hgb (12.0-16.0) g/dl Hct (37.0-47.0) % MCV (80.0-98.0) fL MCH (27.0-33.0) pg MCHC (31.0-35.0) g/dl RDW (11.0-16.0) % Plt Count (160-400) X10*3/uL MPV (9.4-12.3) fL Immature Gran % (Auto) (0.0-0.4) % Neut % (Auto) (45-73) % Lymph % (Auto) (20-40) % [place] % (Auto) (2-11) % Eos % (Auto) (0-4) % Baso % (Auto) (0-2) % Lymph # (Auto) (1.2-4.9) X10*3/uL [place] # (Auto) (0.1-1.2) X10*3/uL Eos # (Auto) (0.0-0.4) X10*3/uL Baso # (Auto) (0.0-0.2) X10*3/uL Abs Immat Gran (auto) (0.00-0.03) X10*3/uL Absolute Neuts (auto) (2.0-8.3) x10*3/uL Absolute Nucleated RBC (0.0-0.012) X10*3/uL Nucleated RBC % (auto) (0.0-0.2) /100WBC D-Dimer High Sensitivty NG/ML Sodium (135-145) mmol/L Potassium (3.3-5.1) mmol/L Chloride (96-108) mmol/L Carbon Dioxide (22-29) mmol/L Anion Gap (12-20) BUN (9-16) mg/dL Creatinine (0.5-1.4) mg/dL Estim Creat Clear Calc Estimated GFR POC Glucose (60-115) mg/dL Random Glucose (60-115) mg/dL Lactic Acid (0.5-2.0) mmol/L Calcium (8.4-10.2) mg/dL Total Bilirubin (0.0-1.0) mg/dL Direct Bilirubin (0.0-0.5) mg/dL AST (5-31) U/L ALT (0-31) U/L Alkaline Phosphatase (39-117) U/L Troponin I High Sens (<3.5-17.0) ng/L B-Natriuretic Peptide (<100) pg/mL Total Protein (6.5-8.0) g/dL Albumin (3.5-5.0) g/dL Lipase (8-78) U/L Influenza Type A (PCR) NEGATIVE (Negative) Influenza Type B (PCR) NEGATIVE (Negative) RSV RNA Qual (PCR) NEGATIVE (Negative) SARS-CoV-2 RNA (RT-PCR) NEGATIVE (Negative) Imaging Data Chest x-ray: Attestation: I personally reviewed and interpreted this imaging study as follows: Radiologist's impression: Subtle scattered bilateral groundglass opacities. No effusion. ? Chest CTA: Attestation: I personally reviewed and interpreted this imaging study as follows: Radiologist's impression: No evidence of pulmonary embolism. ?Status post left upper lobectomy with associated shift of the mediastinum toward the left, unchanged compared with most recent prior study dated September 20, 2021. ?Extensive, diffuse, bilateral interstitial prominence with Sarwat B-lines and superimposed groundglass lung parenchymal densities, worse compared with September 20, 2021. Small bilateral pleural effusions, right greater than left. Mediastinal and bilateral hilar adenopathy. Mild bibasilar traction bronchiectasis. Differential diagnosis of these findings is extensive and includes, but is not limited to, some combination of pulmonary edema, chronic interstitial fibrotic changes and small airways disease, lymphangitic spread of tumor, etc. ? ? ECG Data Attestation: I personally reviewed and interpreted this ECG as follows: Interpretation: Normal sinus rhythm at 93 beats per minutes, left axis deviation, normal intervals, diffuse T-wave inversion in the anteroseptal Discharge Plan Discharge Clinical Impression: Hypoxia, Dyspnea Patient Disposition: Admitted As Inpatient Prescriptions: No Action glimepiride 4 mg tablet 4 mg PO DAILY 90 Days Qty: 90 2RF metformin 1,000 mg tablet 1,000 mg PO BID Qty: 180 3RF cyanocobalamin (vitamin B-12) 1,000 mcg capsule 1,000 mcg PO DAILY 90 Days Qty: 90 3RF cholecalciferol (vitamin D3) 50 mcg (2,000 unit) capsule 50 mcg PO DAILY 90 Days Qty: 90 3RF
[2021-10-25 11:06] LABS: MANUAL DIFF FLAG NO
[2021-10-25 11:14] LABS: Basophils Absolute Auto 0.1 X10*3/uL (0.0-0.2); Basophils Percent Auto 0.8 % (0-2); Eosinophils Absolute Auto 0.1 X10*3/uL (0.0-0.4); Eosinophils Percent Auto 0.8 % (0-4); Hematocrit 36.2 % (37.0-47.0); Hemoglobin 12.2 g/dl (12.0-16.0); Imm Gran Abs Auto 0.03 X10*3/uL (0.00-0.03); Imm Gran Pct Auto 0.3 % (0.0-0.4); Lymphocytes Absolute Auto 1.1 X10*3/uL (1.2-4.9); Lymphocytes Percent Auto 12.1 % (20-40); Mean Corpuscular HGB Conc 33.7 g/dl (31.0-35.0); Mean Corpuscular Hemoglobin 27.5 pg (27.0-33.0); Mean Corpuscular Volume 81.5 fL (80.0-98.0); Monocytes Absolute Auto 0.5 X10*3/uL (0.1-1.2); Monocytes Percent Auto 5.5 % (2-11); Neutrophils Absolute Auto 7.4 x10*3/uL (2.0-8.3); Neutrophils Percent Auto 80.5 % (45-73); Platelet Count 290 X10*3/uL (160-400); Red Blood Count 4.44 X10*6/uL (4.20-5.50); Red Cell Distribution Width 14.9 % (11.0-16.0); White Blood Count 9.1 X10*3/uL (4.8-10.8)
[2021-10-25 11:37] LABS: Alanine Aminotransferase 27 U/L (0-31); Alkaline Phosphatase 55 U/L (39-117); Anion Gap 17 (12-20); Aspartate Amino Transferase 20 U/L (5-31); Bilirubin Direct 0.3 mg/dL (0.0-0.5); Bilirubin Total 0.7 mg/dL (0.0-1.0); Blood Urea Nitrogen 12 mg/dL (9-16); Calcium 9.5 mg/dL (8.4-10.2); Carbon Dioxide 21 mmol/L (22-29); Chloride 107 mmol/L (96-108); Creatinine Clr Calc Pharmacy 56.3; Estimated Glomerular Filt Rate 56; Glucose Random 179 mg/dL (60-115); Lipase 17 U/L (8-78); Potassium 4.2 mmol/L (3.3-5.1); Sodium 141 mmol/L (135-145); Total Protein 6.8 g/dL (6.5-8.0)
[2021-10-25 11:44] LABS: B Type Natriuretic Peptide 360 pg/mL (<100); Troponin-I High Sensitivity 12.9 ng/L (<3.5-17.0)
[2021-10-25 11:56] LABS: Influenza A PCR NEGATIVE (Negative); Influenza B PCR NEGATIVE (Negative); Resp Syncy Virus RNA Qual PCR NEGATIVE (Negative); SARS COV2 PCR INHOUSE NEGATIVE (Negative)
--- NOTE | 2021-10-25 11:58 | PHA.MEDREC ---
Pharmacy Consult ? Medication Reconciliation Pharmacy has completed the medication reconciliation.
[2021-10-25 13:08] LABS: Glucose, Whole Blood 154 mg/dL (60-115)
[2021-10-25 13:18] LABS: D Dimer High Sensitivity 230 NG/ML
[2021-10-25] MEDS: iohexoL 350 MG/ML 100 ML INFUS..BTL IV (13:52)
--- NOTE | 2021-10-25 16:51 | P.HPHOSP_ITS ---
History of Present Illness Date of Service: 10/25/21 Attending physician on admission: Jazmine Jensen Chief Complaint: shortness of breath with exertion this is a 76-year-old female patient with past medical history significant for lung cancer diagnosed in 2018, is status post left upper lobe wedge resection and mediastinal lymphandectomy in September of [address] Holli rubio recently seen by him on 10/15/2021 and felt patient has no evidence of recurrence or new disease as per CT chest from October 11 there was no lymphadenopathy and no pleural effusion noted, however patient presented to [facility] today with symptoms of shortness of breath associated with dry cough worse with exertion of 1 week duration associated with orthopnea, PND patient denies bilateral leg swelling yesterday patient had a brief episode of chest pressure but resolved by itself since as shortness of breath was gradually progressing she came to the emergency room and was noted to have significant hypoxia with oxygenation dropping to 60s with exertion, chest x-ray showed scattered bi lateral ground-glass opacities and no effusion, a CTA chest showed left upper lobe lobectomy with associated shift of the mediastinum towards the left there was extensive diffuse bilateral interstitial prominence with Sarwat B lines and superimposed ground-glass lung parenchyma Maria Elena disease worse compared to the recent CT chest there was also small bilateral effusion seen right greater than the left there was mediastinal and bilateral hilar adenopathy patient in the emergency room treated with IV Lasix and IV Solu Medrol and now being admitted to [facility] with acute hypoxic respiratory failure likely due to pulmonary edema with elevated BNP of 360 patient denies prior history of heart failure, no history of coronary artery disease, EKG showing new T-wave inversion V2 to V4, normal troponin 12.9 Review of Systems Review of Systems: [employer] no headache no dizziness CVS no chest pain no palpitation GI no nausea no vomiting no diarrhea no urinary symptoms skin no rash Yes all other systems are reviewed and are negative [facility] Medical History Adrenal adenoma Carotid aneurysm, left Cholelithiasis Hypercholesterolemia Hypertension Lung cancer (~2018) Type 2 diabetes mellitus with hyperglycemia Family History Father No problems noted. Mother Stroke Pertinent family history: mother of old age and failure to thrive Surgical History History of cataract surgery (~2019) History of lobectomy of lung (~2018) Social History Housing: House Alcohol intake: never Patient Tobacco Use Status: Former Tobacco user Tobacco use type: Cigarette e-Cigarette/Vaping Use: Never Used Second Hand Smoke Exposure: No Advance Directives: No Advance Directives Information Provided: Yes Current occupational status: retired Cognitive needs: No Hearing needs: No Vision needs: Yes Meds Allergies Allergy/AdvReac Type Severity Reaction Status Date / Time No Known Allergies Allergy Verified 10/15/21 11:27 [No Known Allergies*] Active Medications: Current Medications Acetaminophen (Acetaminophen 325 Mg Tablet) 650 mg PO Q6H PRN PRN Reason: Pain, Mild (Pain Scale 1-3) Cyanocobalamin (Cyanocobalamin (Vitamin B-12) 1,000 Mcg Tablet) 1,000 mcg PO DAILY DINA Glipizide (Glipizide 10 Mg Tablet) 10 mg PO DAILY DINA Ondansetron HCl (Ondansetron Hcl 4 Mg/2 Ml Vial) 4 mg IVPUSH Q8H PRN PRN Reason: Nausea and Vomiting Pharmacy Consult (Consult Rx Perform Med Rec) 1 each MISCELLANE ONCE PRN PRN Reason: Consult order Sodium Chloride (0.9 % Sodium Chloride Flush 3 Ml Syringe) 3 ml IVFLUSH QSHIFT DINA Vitamin D (Cholecalciferol (Vitamin D3) 25 Mcg Tablet) 50 mcg PO DAILY DINA Physical Exam Vital Signs and Narrative: Vital Signs: Last Vital Signs Temp 98.4 F 10/25/21 15:33 Pulse 104 H 10/25/21 15:33 Resp 20 10/25/21 15:33 BP 143/83 H 10/25/21 15:33 Pulse Ox 93 10/25/21 15:33 O2 Del Method 10/25/21 14:08 O2 Flow Rate 5 10/25/21 15:33 BMI result Body Mass Index 28.7 Const: Other: General awake alert x3,in no acute distress. HEENT PERRLA,EOMI Neck supple no JVD. CVS regular rate rhythm, Respiratory lungs right basilar crackles, no respiratory distress, no wheeze, no rhonchi. Gastrointestinal abdomen soft, nontender, bowel sounds audible, no guarding , no rigidity. Extremities no edema. Neuro nonfocal Skin no rash psych appropriate affect Results Labs CBC and Chem 7: 10/25/21 10:55 10/25/21 10:55 Labs: Laboratory Results - last 24 hr 10/25/21 10/25/21 10/25/21 10:55 10:55 10:55 MCV 81.5 MCH 27.5 MCHC 33.7 RDW 14.9 Plt Count 290 MPV 10.0 Immature Gran % (Auto) 0.3 Neut % (Auto) 80.5 H Lymph % (Auto) 12.1 L [place] % (Auto) 5.5 Eos % (Auto) 0.8 Baso % (Auto) 0.8 Lymph # (Auto) 1.1 L [place] # (Auto) 0.5 Eos # (Auto) 0.1 Baso # (Auto) 0.1 Abs Immat Gran (auto) 0.03 Absolute Neuts (auto) 7.4 Absolute Nucleated RBC 0.000 Nucleated RBC % (auto) 0.0 D-Dimer High Sensitivty Anion Gap 17 Estim Creat Clear Calc 56.3 Estimated GFR 56 POC Glucose Random Glucose 179 H Lactic Acid 2.0 Calcium 9.5 D Total Bilirubin 0.7 Direct Bilirubin 0.3 AST 20 ALT 27 Alkaline Phosphatase 55 B-Natriuretic Peptide Total Protein 6.8 Albumin 4.0 Lipase 17 Influenza Type A (PCR) Influenza Type B (PCR) RSV RNA Qual (PCR) SARS-CoV-2 RNA (RT-PCR) 10/25/21 10/25/21 10/25/21 10:55 12:58 12:58 MCV MCH MCHC RDW Plt Count MPV Immature Gran % (Auto) Neut % (Auto) Lymph % (Auto) [place] % (Auto) Eos % (Auto) Baso % (Auto) Lymph # (Auto) [place] # (Auto) Eos # (Auto) Baso # (Auto) Abs Immat Gran (auto) Absolute Neuts (auto) Absolute Nucleated RBC Nucleated RBC % (auto) D-Dimer High Sensitivty 230 Anion Gap Estim Creat Clear Calc Estimated GFR POC Glucose 154 H Random Glucose Lactic Acid Calcium Total Bilirubin Direct Bilirubin AST ALT Alkaline Phosphatase B-Natriuretic Peptide 360 H Total Protein Albumin Lipase Influenza Type A (PCR) Influenza Type B (PCR) RSV RNA Qual (PCR) SARS-CoV-2 RNA (RT-PCR) 10/25/21 Unknown MCV MCH MCHC RDW Plt Count MPV Immature Gran % (Auto) Neut % (Auto) Lymph % (Auto) [place] % (Auto) Eos % (Auto) Baso % (Auto) Lymph # (Auto) [place] # (Auto) Eos # (Auto) Baso # (Auto) Abs Immat Gran (auto) Absolute Neuts (auto) Absolute Nucleated RBC Nucleated RBC % (auto) D-Dimer High Sensitivty Anion Gap Estim Creat Clear Calc Estimated GFR POC Glucose Random Glucose Lactic Acid Calcium Total Bilirubin Direct Bilirubin AST ALT Alkaline Phosphatase B-Natriuretic Peptide Total Protein Albumin Lipase Influenza Type A (PCR) NEGATIVE Influenza Type B (PCR) NEGATIVE RSV RNA Qual (PCR) NEGATIVE SARS-CoV-2 RNA (RT-PCR) NEGATIVE Imaging Radiologist's Impressions: Impressions Chest X-Ray 10/25/21 11:25 IMPRESSION: Subtle scattered bilateral groundglass opacities. No effusion. Chest CTA 10/25/21 13:58 IMPRESSION: No evidence of pulmonary embolism. Status post left upper lobectomy with associated shift of the mediastinum toward the left, unchanged compared with most recent prior study dated September 20, 2021. Extensive, diffuse, bilateral interstitial prominence with Sarwat B-lines and superimposed groundglass lung parenchymal densities, worse compared with September 20, 2021. Small bilateral pleural effusions, right greater than left. Mediastinal and bilateral hilar adenopathy. Mild bibasilar traction bronchiectasis. Differential diagnosis of these findings is extensive and includes, but is not limited to, some combination of pulmonary edema, chronic interstitial fibrotic changes and small airways disease, lymphangitic spread of tumor, etc. VTE: negative Assessment and Plan (1) Hypoxia: Status: Acute (2) Dyspnea: Status: Acute (3) Type 2 diabetes mellitus with hyperglycemia: Qualifiers: Diabetes mellitus correction insulin use: without correction use Qualified Code(s): E11.65 - Type 2 diabetes mellitus with hyperglycemia Status: Acute (4) Vitamin B12 deficiency: Status: Acute (5) Vitamin D deficiency: Status: Acute Plan 76-year-old female patient with past medical history significant for diabetes mellitus type 2, cholelithiasis, left carotid artery aneurysm, history of lung cancer status post lobectomy in 2019 presented to [facility] with gradually worsening shortness of breath and dry cough worse with exertion for 1 week duration associated with orthopnea and brief episode of chest discomfort yesterday that resolved by itself, with no associated fever chills patient noted to have elevated BNP and CT chest showing pulmonary edema patient will be admitted to telemetry continued monitoring and treatment. Dyspnea on exertion differential diagnosis,likely acute congestive heart failure with no prior history of CHF, no prior history of COPD, no wheeze, no fevers , chills no leukocytosis,less likely pneumonia will admit to telemetry unit treat with IV Lasix 20 mg b.i.d. obtain echocardiogram, rule out cardiac ischemia monitor Is/Os, repeat BNP and BMP obtain cardiology consult abnormal EKG noted to have T-wave inversion in anterior leads will repeat EKG and check echocardiogram history of hypertension not on antihypertensive will place on low-dose beta-blockers. Due to elevated BP and pulse acute hypoxic respiratory failure due to above continue oxygen therapy patient not on home O2 gradually wean oxygen follow clinical course diabetes mellitus type 2 hold metformin continue glimepiride placed on insulin sliding scale and diabetic diet history of lung cancer status post lobectomy in [address] Soriano as outpatient recently evaluated and noted to have no recurrence of disease vitamin B12/vitamin-D deficiency continue supplements code status full code DVT prophylaxis with Lovenox patient will require two night inpatient stay due to dyspnea on exertion req uiring IV Lasix and need further workup and cardiology evaluation. Quality Stroke Does the patient have a stroke diagnosis?: No VTE Prior VTE?: No VTE Risk Level:: Medical - moderate - high VTE Device Contraindication: Treatment Not Indicated VTE Drug Contraindication: N/A - Med Ordered
[2021-10-25] MEDS: Furosemide 40 MG/4 ML VIAL IVPUSH (17:33)
[2021-10-25] MEDS: methylPREDNISolone Sod Succ 125 MG/2 ML VIAL IVPUSH (17:34)
[2021-10-25 17:51] LABS: Appearance Urine Clear; Color Urine Yellow; Glucose Urine UA Negative (Negative); Leukocyte Esterase Urine Small (1+) (Negative); Nitrite Urine Positive (Negative); PH 5.5 (5.0-9.0); Specific Gravity - Urine >= 1.030 (1.005-1.025); UMIC TRIGGER UACC YES; Urine Blood Negative (Negative); Urine Ketones Negative (Negative); Urine Protein Negative (Neg-Trace)
--- NOTE | 2021-10-25 18:43 | PC.NURSE ---
PER DR GONZALEZ THE EKG IS SCHEDULED TO BE DONE TOMORROW MORNING .
[2021-10-25 19:21] LABS: Bacteria Urine 4+ (None Seen); Hyaline Casts Urine 0-2 /LPF (0-2); RBC Urine 0-2 /HPF (0-2); UACC Culture Trigger YES
[2021-10-25 19:54] LABS: Glucose, Whole Blood 167 mg/dL (60-115)
[2021-10-25] MEDS: Metoprolol Tartrate 25 MG TABLET PO (21:07)
[2021-10-25] MEDS: Insulin Lispro 100 UNIT/ML 3 ML VIAL SUBCUT (21:08)
--- NOTE | 2021-10-25 21:22 | MHC.CM.PN ---
IMM 10/25. Met with [facility], ana cristina woman, admitted with bed assignment pending. Declines HCP. Lauren/[employer]. Lives with in an in law apartment. Has no DME or services. Independent. D/C plan: Home without services. Family will transport. CM to follow for d/c needs.
[2021-10-26] VITALS (7 sets, daily range): BP systolic 130–191; BP diastolic 75–104; PULSE 66–81; RESP 12–20; TEMP 36.1–36.7; O2SAT 88–96
[2021-10-26] MEDS: 0.9 % Sodium Chloride Flush 3 ML SYRINGE IVFLUSH ×4 (01:46→21:28)
--- NOTE | 2021-10-26 04:39 | PC.NURSE ---
Patient is alert and oriented x5. Patient is able to follow commands and make her needs known. VSS. Patient is on O2 at 5 LPM NC. O2 Sat 93-94%. Patient continues with exceptional dyspnea, her O2 Sat has been dropping to 88-89% with minimal exertion such as use of a bedside commode, however patient recovering fast to her baseline of 93-94% on supplemental O2. Patient denies any pain at present.
[2021-10-26 05:02] LABS: Anion Gap 15 (12-20); Blood Urea Nitrogen 16 mg/dL (9-16); Calcium 9.4 mg/dL (8.4-10.2); Carbon Dioxide 23 mmol/L (22-29); Chloride 106 mmol/L (96-108); Creatinine Clr Calc Pharmacy 51.9; Estimated Glomerular Filt Rate 51; Glucose Random 306 mg/dL (60-115); Sodium 140 mmol/L (135-145)
[2021-10-26 05:09] LABS: B Type Natriuretic Peptide 486 pg/mL (<100)
--- NOTE | 2021-10-26 07:00 | CA_ITS ---
Transthoracic Echocardiogram Patient (Last, First, Middle): Jacey Cardoza M Gender: Female Date of : 1945 Age: 76 Procedure Date: 10/26/2021 Procedure Type: Transthoracic Echocardiogram Location: ER Height: 172.72 cm Weight: 85.73 kg BSA: 2.00 m2 Heart Rate: 66 bpm BP: 130 / 85 mmHg Denture Processor: SB Referring MD: Jazmnie Jensen MD Symptoms: chf Study Quality: Adequate ECG Rhythm: Sinus Conclusions: - The left ventricular systolic function is normal. The calculated ejection fraction is 65% by biplane method. - E/E prime ratio is >15, consistent with elevated filling pressures. - There is mild calcification of the aortic valve. - There is mild mitral annular calcification. - There is mild tricuspid valve regurgitation. - Moderate pulmonary hypertension is present. Findings Left Ventricle Normal left ventricular cavity size. There is moderately increased left ventricular wall thickness. The left ventricular systolic function is normal. The calculated ejection fraction is 65% by biplane method. There is no evidence of regional wall motion abnormalities. E/E prime ratio is >15, consistent with elevated filling pressures. Evidence suggests grade I (mild) diastolic dysfunction. Diminished peak GLS at -12.3%. Right Ventricle Mildly increased right ventricular cavity size. There is normal right ventricular systolic function. Atria Both atria are normal in size. Aortic Valve There is a normal trileaflet aortic valve. There is mild calcification of the aortic valve. There is no aortic valve stenosis. There is trace (trivial) aortic valve regurgitation. Mitral Valve There is mild mitral annular calcification. There is trace mitral valve regurgitation. There is no mitral valve stenosis. Pulmonic Valve There is trace pulmonic valve regurgitation. Tricuspid Valve Normal tricuspid valve structure. There is mild tricuspid valve regurgitation. The right ventricular systolic pressure is 53 mmHg. Moderate pulmonary hypertension is present. Great Vessels The asc aorta is normal in size. Small plaque is seen in the sino tubular ridge. Venous The inferior vena cava is normal in size and collapses greater than 50% with inspiration. Pericardium/Pleural There is no evidence of pericardial effusion. Prior Study Comparison No prior study available for comparison. Measurements 2D Linear Measurements IVSd: 1.43 0.6-0.9/0.6-1.0 cm LVIDd: 3.40 3.9-5.3/4.2-5.9 cm LVIDd Index: 1.70 2.4-3.2/2.2-3.1 cm/m2 LVIDs: 2.60 2.0-3.6 cm LVPWd: 1.57 0.7-1.1 cm LA Diam: 3.60 2.7-3.8/3.0-4.0 cm LAIDs Index: 1.80 1.5-2.3 cm/m2 LV Mass: 231.75 67-162/88-224 g LV Mass Index: 115.88 43-95/49-115 g/m2 LVOT Diam: 2.20 3.0+(-)1.3 cm 2D Systolic Function EF 4C: 65.50 >55% EF 2C: 62.70 >55% EF BiP: 65.00 >55% Mitral Valve MV Pk E: 0.82 MV PK A: 1.40 MV Decel Time: 313.00 E/A: 0.60 E'Lateral: 4.68 E'Medial: 2.83 E/E' Med: 29.00 E/E' Lat: 17.50 PHT: 92.00 MVA PHT: 2.39 Decel Traill: 2.62 Aortic Valve AoV Pk Mohsen: 1.91 AoV Mn Mohsen: 1.26 AoV VTI: 0.39 AoV Pk Grad: 15.00 Aov Mn Grad: 8.00 ROSA Cont.VTI: 2.46 LVOT LVOT Pk Mohsen: 1.26 LVOT Mn Mohsen: 0.83 LVOT VTI: 0.25 LVOT Pk Grad: 6.00 LVOT Mn Grad: 3.00 LVOT Diam: 2.20 LVOT Area: 3.80 Diastolic Function MV Pk E: 0.82 MV Pk A: 1.40 E/A: 0.60 E'Medial: 2.83 E/E' Med: 29.00 E' Laterial: 4.68 E/E' Lat: 17.50 Right Ventricle TAPSE (mm): 18.00 TVS' Mohsen: 9.36 Tricuspid Valve TR Pk Mohsen: 3.37 TR Pk Grad: 45.00 RA Press: 8.00 RVSP: 53.00 Great Vessels Aorta Sinus of Valsalva: 2.80 2.0-3.5 cm Ao Asc: 3.70 2.1-3.4 cm Pulmonary Veins Pulm Vein S/D 2.00 Pulmonary Valve PV Pk Mohsen: 0.86 Peak PV Grad: 3.00 Updated in Other Vendor System with Status of Final Joey Power MD electronically signed on 10/26/2021 10:58:13 AM with status of Final
[2021-10-26 07:05] LABS: Glucose, Whole Blood 227 mg/dL (60-115)
[2021-10-26] MEDS: Cholecalciferol (Vitamin D3) 25 MCG TABLET 50 MCG PO (07:38)
[2021-10-26] MEDS: Furosemide 20 MG/2 ML VIAL IVPUSH ×2 (07:38→18:29)
[2021-10-26] MEDS: Cyanocobalamin (Vitamin B-12) 1,000 MCG TABLET 1000 MCG PO (07:38)
[2021-10-26] MEDS: Metoprolol Tartrate 25 MG TABLET PO ×2 (07:39→21:25)
[2021-10-26] MEDS: Insulin Lispro 100 UNIT/ML 3 ML VIAL SUBCUT ×4 (07:39→21:52)
--- NOTE | 2021-10-26 07:46 | PC.NURSE ---
Pt is alert/oriented. speaking full sentences. Denies pain or diff breathing. Breathing easy, unlabored. Skin pwd. NSR on tele. LS clear throughout. Emptied commode for large amt of urine, unable to measure. sat 95-96% on 5lpm via nc.
--- NOTE | 2021-10-26 08:00 | ECG_ITS ---
Test Reason : sob Blood Pressure : / mmHG Vent. Rate : 061 BPM Atrial Rate : 061 BPM P-R Int : 178 ms QRS Dur : 090 ms QT Int : 508 ms P-R-T Axes : 047 -11 -18 degrees QTc Int : 511 ms Normal sinus rhythm Inferior infarct (cited on or before 08-AUG-2018) Anterior infarct (cited on or before 08-AUG-2018) Prolonged QT Abnormal ECG When compared with ECG of 25-OCT-2021 10:22, Vent. rate has decreased BY 32 BPM QT has lengthened Referred By: Jazmine Jensen Electronically Signed By:OLGA LIDIA VINES
--- NOTE | 2021-10-26 09:53 | PM.CNCAR ---
History of Present Illness History of Present Illness Date of Service: 10/26/21 Chief complaint: dyspnea on exertion Narrative: This is a cardiology consultation regarding possible congestive heart failure. Patient has history of lung cancer. She has had left upper lobe wedge resection. Current admissions because of shortness of breath and some cough. This has been going on for the last couple of weeks or so. However, no significant leg swelling or anginal-type episodes. We have been asked to assess her for any cardiac etiology for symptoms. She denies any history of coronary artery disease or myocardial infarction or cardiomyopathy. No other cardiac issues according to her. Only major concern was the lung cancer mentioned above. However, she states that that has been stable for the last 3 years or so and she follows up closely with Dr. Hernandez. Review of Systems Review of Systems: Yes all other systems are reviewed and are negative Constitutional: Constitutional: Reports as per HPI Eyes: Eyes: Reports as per HPI ENT: Reports as per HPI Cardiovascular: Cardiovascular: Reports as per HPI, Denies acrocyanosis, Denies cool extremities, Denies chest pain, Denies leg edema, Denies lightheadedness, Denies palpitations and Reports dyspnea Respiratory: Respiratory: Reports as per HPI, Reports no additional respiratory complaints and Reports dyspnea Gastrointestinal: Gastrointestinal: Reports as per HPI and Reports no additional gastrointestinal complaints Genitourinary: Genitourinary: Reports as per HPI Musculoskeletal: Musculoskeletal: Reports no additional musculoskeletal complaints and Reports as per HPI Integumentary/Breasts: Skin/Breast: Reports system reviewed and no additional complaints, except as docu Neurologic: Reports system reviewed and no additional complaints, except as documented and Reports as per HPI Psychiatric: Psychiatric: Reports no additional psychiatric complaints and Reports as per HPI Endocrine: Endocrine: Reports no additional endocrine complaints, Reports as per HPI and Denies palpitations Hematologic/Lymphatic: Hematologic/Lymphatic: Reports no additional hematologic/lymphatic complaints and Reports as per HPI Allergic/Immunologic: Allergic/Immunologic: Reports no additional allergic/immunologic complaints and Reports as per HPI [facility] Past Medical History Medical History Adrenal adenoma Carotid aneurysm, left Cholelithiasis Hypercholesterolemia Hypertension Lung cancer (~2019) Type 2 diabetes mellitus with hyperglycemia Family History Family History Father No problems noted. Mother Stroke Surgical History Surgical History History of cataract surgery (~2019) History of lobectomy of lung (~2018) Social History Social History Housing: House Alcohol intake: never Patient Tobacco Use Status: Former Tobacco user Tobacco use type: Cigarette e-Cigarette/Vaping Use: Never Used Second Hand Smoke Exposure: No Advance Directives: No Advance Directives Information Provided: Yes service: No Current occupational status: retired Cognitive needs: No Hearing needs: No Vision needs: Yes Meds Allergies Allergy/AdvReac Type Severity Reaction Status Date / Time No Known Allergies Allergy Verified 10/15/21 11:27 [No Known Allergies*] Active Medications: Current Medications Acetaminophen (Acetaminophen 325 Mg Tablet) 650 mg PO Q6H PRN PRN Reason: Pain, Mild (Pain Scale 1-3) Cyanocobalamin (Cyanocobalamin (Vitamin B-12) 1,000 Mcg Tablet) 1,000 mcg PO DAILY [facility] Last Admin: 10/26/21 07:38 Dose: 1,000 mcg Dextrose (Dextrose 50 % 25 Gm/50 Ml Syringe) 25 gm IVPUSH Q15M PRN; Protocol PRN Reason: per Hypoglycemia Standing Ord. Furosemide (Furosemide 20 Mg/2 Ml Vial) 20 mg IVPUSH BID@0900,1800 [facility]; Protocol Last Admin: 10/26/21 07:38 Dose: 20 mg Glipizide (Glipizide 10 Mg Tablet) 10 mg PO DAILY [facility] Glucose (Glucose Gel 15 Gm Gel..Gram.) 15 gm PO Q15M PRN; Protocol PRN Reason: per Hypoglycemia Standing Ord. Insulin Human Lispro (Insulin Lispro 100 Unit/Ml 3 Ml Vial) 0 unit SUBCUT QIDACHS [facility]; Protocol Last Admin: 10/26/21 07:39 Dose: 4 unit Metoprolol Tartrate (Metoprolol Tartrate 25 Mg Tablet) 25 mg PO BID [facility]; Protocol Last Admin: 10/26/21 07:39 Dose: 25 mg Ondansetron HCl (Ondansetron Hcl 4 Mg/2 Ml Vial) 4 mg IVPUSH Q8H PRN PRN Reason: Nausea and Vomiting Pharmacy Consult (Consult Rx Perform Med Rec) 1 each MISCELLANE ONCE PRN PRN Reason: Consult order Sodium Chloride (0.9 % Sodium Chloride Flush 3 Ml Syringe) 3 ml IVFLUSH QSHIFT [facility] Last Admin: 10/26/21 07:41 Dose: 3 ml Vitamin D (Cholecalciferol (Vitamin D3) 25 Mcg Tablet) 50 mcg PO DAILY [facility] Last Admin: 10/26/21 07:38 Dose: 50 mcg Physical Exam Vital Signs: Vital Signs: Last Vital Signs Temp 98.5 F 10/25/21 18:46 Pulse 75 10/26/21 07:41 Resp 20 10/26/21 07:41 BP 130/85 10/26/21 07:41 Pulse Ox 96 10/26/21 07:41 O2 Del Method 10/26/21 07:41 O2 Flow Rate 5 10/26/21 07:41 Oxygen Flow Rate 5 10/25/21 12:00 BMI result Body Mass Index 28.7 Const: General: comfortable and no acute distress Orientation/consciousness: patient oriented x3 HEENT: Other: Unremarkable Head: Yes normal to inspection Neck: Neck: Yes normal visual inspection Chest: Chest palpation & inspection: normal inspection of the chest Resp: Other: Few basal crackles Cardio: Palpation: normal PMI Heart sounds: S1 normal heart sound present, S2 normal heart sound present, no gallops, no murmurs and no rubs GI: Palpation (GI): Soft to palpation Back/Spine/Pelvis: Other: unremarkable Skin: General skin exam: no rashes or lesions noted Neuro: General: patient oriented x3 Extrem: General: Yes normal to inspection Psych: Mental Status: mental status grossly normal Objective Labs and Meds Result diagrams: 10/25/21 10:55 10/26/21 04:35 Lab results: Laboratory Results - last 24 hr 10/25/21 10/25/21 10/25/21 10:55 10:55 10:55 WBC 9.1 RBC 4.44 Hgb 12.2 Hct 36.2 L MCV 81.5 MCH 27.5 MCHC 33.7 RDW 14.9 Plt Count 290 MPV 10.0 Immature Gran % (Auto) 0.3 Neut % (Auto) 80.5 H Lymph % (Auto) 12.1 L Hamilton % (Auto) 5.5 Eos % (Auto) 0.8 Baso % (Auto) 0.8 Lymph # (Auto) 1.1 L Hamilton # (Auto) 0.5 Eos # (Auto) 0.1 Baso # (Auto) 0.1 Abs Immat Gran (auto) 0.03 Absolute Neuts (auto) 7.4 Absolute Nucleated RBC 0.000 Nucleated RBC % (auto) 0.0 D-Dimer High Sensitivty Sodium 141 Potassium 4.2 Chloride 107 Carbon Dioxide 21 L Anion Gap 17 BUN 12 Creatinine 0.96 Estim Creat Clear Calc 56.3 Estimated GFR 56 POC Glucose Random Glucose 179 H Lactic Acid 2.0 Calcium 9.5 D Total Bilirubin 0.7 Direct Bilirubin 0.3 AST 20 ALT 27 Alkaline Phosphatase 55 Troponin I High Sens B-Natriuretic Peptide Total Protein 6.8 Albumin 4.0 Lipase 17 Urine Color Urine Appearance Urine pH Ur Specific [place] Urine Protein Urine Glucose (UA) Urine Ketones Urine Blood Urine Nitrite Ur Leukocyte Esterase Urine RBC Urine WBC Ur Squamous Epith Cells Urine Bacteria Hyaline Casts Influenza Type A (PCR) Influenza Type B (PCR) RSV RNA Qual (PCR) SARS-CoV-2 RNA (RT-PCR) 10/25/21 10/25/21 10/25/21 10:55 12:58 12:58 WBC RBC Hgb Hct MCV MCH MCHC RDW Plt Count MPV Immature Gran % (Auto) Neut % (Auto) Lymph % (Auto) Hamilton % (Auto) Eos % (Auto) Baso % (Auto) Lymph # (Auto) Hamilton # (Auto) Eos # (Auto) Baso # (Auto) Abs Immat Gran (auto) Absolute Neuts (auto) Absolute Nucleated RBC Nucleated RBC % (auto) D-Dimer High Sensitivty 230 Sodium Potassium Chloride Carbon Dioxide Anion Gap BUN Creatinine Estim Creat Clear Calc Estimated GFR POC Glucose 154 H Random Glucose Lactic Acid Calcium Total Bilirubin Direct Bilirubin AST ALT Alkaline Phosphatase Troponin I High Sens 12.9 B-Natriuretic Peptide 360 H Total Protein Albumin Lipase Urine Color Urine Appearance Urine pH Ur Specific [place] Urine Protein Urine Glucose (UA) Urine Ketones Urine Blood Urine Nitrite Ur Leukocyte Esterase Urine RBC Urine WBC Ur Squamous Epith Cells Urine Bacteria Hyaline Casts Influenza Type A (PCR) Influenza Type B (PCR) RSV RNA Qual (PCR) SARS-CoV-2 RNA (RT-PCR) 10/25/21 10/25/21 10/25/21 17:38 19:38 Unknown WBC RBC Hgb Hct MCV MCH MCHC RDW Plt Count MPV Immature Gran % (Auto) Neut % (Auto) Lymph % (Auto) Hamilton % (Auto) Eos % (Auto) Baso % (Auto) Lymph # (Auto) Hamilton # (Auto) Eos # (Auto) Baso # (Auto) Abs Immat Gran (auto) Absolute Neuts (auto) Absolute Nucleated RBC Nucleated RBC % (auto) D-Dimer High Sensitivty Sodium Potassium Chloride Carbon Dioxide Anion Gap BUN Creatinine Estim Creat Clear Calc Estimated GFR POC Glucose 167 H Random Glucose Lactic Acid Calcium Total Bilirubin Direct Bilirubin AST ALT Alkaline Phosphatase Troponin I High Sens B-Natriuretic Peptide Total Protein Albumin Lipase Urine Color Yellow Urine Appearance Clear Urine pH 5.5 Ur Specific [place] >= 1.030 H Urine Protein Negative Urine Glucose (UA) Negative Urine Ketones Negative Urine Blood Negative Urine Nitrite Positive H Ur Leukocyte Esterase Small (1+) H Urine RBC 0-2 Urine WBC 6-10 H Ur Squamous Epith Cells 3-5 Urine Bacteria 4+ Hyaline Casts 0-2 Influenza Type A (PCR) NEGATIVE Influenza Type B (PCR) NEGATIVE RSV RNA Qual (PCR) NEGATIVE SARS-CoV-2 RNA (RT-PCR) NEGATIVE 10/26/21 10/26/21 10/26/21 04:35 04:35 06:59 WBC RBC Hgb Hct MCV MCH MCHC RDW Plt Count MPV Immature Gran % (Auto) Neut % (Auto) Lymph % (Auto) [place] % (Auto) Eos % (Auto) Baso % (Auto) Lymph # (Auto) [place] # (Auto) Eos # (Auto) Baso # (Auto) Abs Immat Gran (auto) Absolute Neuts (auto) Absolute Nucleated RBC Nucleated RBC % (auto) D-Dimer High Sensitivty Sodium 140 Potassium 4.0 Chloride 106 Carbon Dioxide 23 Anion Gap 15 BUN 16 Creatinine 1.04 Estim Creat Clear Calc 51.9 Estimated GFR 51 POC Glucose 227 H Random Glucose 306 H Lactic Acid Calcium 9.4 Total Bilirubin Direct Bilirubin AST ALT Alkaline Phosphatase Troponin I High Sens B-Natriuretic Peptide 486 H Total Protein Albumin Lipase Urine Color Urine Appearance Urine pH Ur Specific [place] Urine Protein Urine Glucose (UA) Urine Ketones Urine Blood Urine Nitrite Ur Leukocyte Esterase Urine RBC Urine WBC Ur Squamous Epith Cells Urine Bacteria Hyaline Casts Influenza Type A (PCR) Influenza Type B (PCR) RSV RNA Qual (PCR) SARS-CoV-2 RNA (RT-PCR) ECG Interpretation: EKG with sinus rhythm at 67/Min; cannot exclude old inferior infarct. Cannot exclude old anterior infarct but that could be from lead placement; normal KS and corrected QT. Imaging Radiologist's impression: Impressions Chest X-Ray 10/25/21 11:25 IMPRESSION: Subtle scattered bilateral groundglass opacities. No effusion. Chest CTA 10/25/21 13:58 IMPRESSION: No evidence of pulmonary embolism. Status post left upper lobectomy with associated shift of the mediastinum toward the left, unchanged compared with most recent prior study dated September 20, 2021. Extensive, diffuse, bilateral interstitial prominence with Sarwat B-lines and superimposed groundglass lung parenchymal densities, worse compared with September 20, 2021. Small bilateral pleural effusions, right greater than left. Mediastinal and bilateral hilar adenopathy. Mild bibasilar traction bronchiectasis. Differential diagnosis of these findings is extensive and includes, but is not limited to, some combination of pulmonary edema, chronic interstitial fibrotic changes and small airways disease, lymphangitic spread of tumor, etc. VTE: negative Assessment and Plan (1) Acute diastolic heart failure: Status: Acute Plan Clinically, she has some crackles on exam but otherwise no clear evidence of volume overload. Cardiac BNP is on the higher side. Levels at 360 and 486. In the past, only 25. High sensitivity troponins are within normal range. Based on CTA, there seems to be a wide differential including pulmonary edema, chronic interstitial fibrotic changes, small airways disease, lymphangitic spread of tumor among others. From the cardiac standpoint, agree with empiric diuretics. Will get echocardiogram. Consider pulmonary evaluation as well. Blood pressure is on the higher side and may need medication based on the trend. Will follow. Discussed with Dr. Jensen. Procedures Date of Service Date of Service: 10/26/21
[2021-10-26] MEDS: glipiZIDE 10 MG TABLET PO (10:32)
[2021-10-26 11:32] LABS: Glucose, Whole Blood 159 mg/dL (60-115)
--- NOTE | 2021-10-26 15:40 | HO.PM.IMPN ---
Subjective Subjective Date of Service: 10/26/21 Interval History: patient feeling better this morning but complaining of short of breath with minimal exertion, denies chest pain, no lightheadedness, no dizziness, no fevers, no chills tolerating diet with no nausea vomiting and diarrhea no acute events Review of Systems Review of Systems: Yes all other systems are reviewed and are negative Physical Exam Vital Signs: Vital Signs: Last Vital Signs Temp 97.3 F 10/26/21 15:39 Pulse 79 10/26/21 15:39 Resp 20 10/26/21 15:39 BP 147/78 H 10/26/21 15:39 Pulse Ox 88 L 10/26/21 15:39 O2 Del Method 10/26/21 15:39 O2 Flow Rate 3.5 10/26/21 15:39 Oxygen Flow Rate 5 10/25/21 12:00 BMI result Body Mass Index 28.7 Const: Other: General? awake tommy rt x3,in no acute distress. Neck? bledsoe pple no JVD. CVS? regular rate rhyth m, Respiratory kim gs?basilar crackle s, coarse breath s ound, no respirato ry distress, no wh eeze, no rhonchi. Gastrointestinal a bdomen soft, nonte nder, bowel sounds audible, no guard ing , no rigidity. Extremities no? e devan. Neuro nonfoc al Skin no rash ps ych appropriate af fect Objective Data Active Medications Acetaminophen (Acetaminophen 325 Mg Tablet) 650 mg PO Q6H PRN PRN Reason: Pain, Mild (Pain Scale 1-3) Cyanocobalamin (Cyanocobalamin (Vitamin B-12) 1,000 Mcg Tablet) 1,000 mcg PO DAILY [facility] Last Admin: 10/26/21 07:38 Dose: 1,000 mcg Documented By: TEDDY Dextrose (Dextrose 50 % 25 Gm/50 Ml Syringe) 25 gm IVPUSH Q15M PRN; Protocol PRN Reason: per Hypoglycemia Standing Ord. Furosemide (Furosemide 20 Mg/2 Ml Vial) 20 mg IVPUSH BID@0900,1800 [facility]; Protocol Last Admin: 10/26/21 07:38 Dose: 20 mg Documented By: TEDDY Glipizide (Glipizide 10 Mg Tablet) 10 mg PO DAILY [facility] Last Admin: 10/26/21 10:32 Dose: 10 mg Documented By: ASIF Glucose (Glucose Gel 15 Gm Gel..Gram.) 15 gm PO Q15M PRN; Protocol PRN Reason: per Hypoglycemia Standing Ord. Insulin Human Lispro (Insulin Lispro 100 Unit/Ml 3 Ml Vial) 0 unit SUBCUT QIDACHS [facility]; Protocol Last Admin: 10/26/21 12:01 Dose: 2 unit Documented By: ASIF Metoprolol Tartrate (Metoprolol Tartrate 25 Mg Tablet) 25 mg PO BID [facility]; Protocol Last Admin: 10/26/21 07:39 Dose: 25 mg Documented By: TEDDY Ondansetron HCl (Ondansetron Hcl 4 Mg/2 Ml Vial) 4 mg IVPUSH Q8H PRN PRN Reason: Nausea and Vomiting Pharmacy Consult (Consult Rx Perform Med Rec) 1 each MISCELLANE ONCE PRN PRN Reason: Consult order Sodium Chloride (0.9 % Sodium Chloride Flush 3 Ml Syringe) 3 ml IVFLUSH QSHIFT [facility] Last Admin: 10/26/21 07:41 Dose: 3 ml Documented By: TEDDY Vitamin D (Cholecalciferol (Vitamin D3) 25 Mcg Tablet) 50 mcg PO DAILY [facility] Last Admin: 10/26/21 07:38 Dose: 50 mcg Documented By: TEDDY Labs CBC & Chem 7: 10/25/21 10:55 10/26/21 04:35 Labs: Laboratory Results - last 24 hr 10/25/21 10/25/21 10/26/21 17:38 19:38 04:35 Anion Gap 15 Estim Creat Clear Calc 51.9 Estimated GFR 51 POC Glucose 167 H Random Glucose 306 H Calcium 9.4 B-Natriuretic Peptide Urine Color Yellow Urine Appearance Clear Urine pH 5.5 Ur Specific [place] >= 1.030 H Urine Protein Negative Urine Glucose (UA) Negative Urine Ketones Negative Urine Blood Negative Urine Nitrite Positive H Ur Leukocyte Esterase Small (1+) H Urine RBC 0-2 Urine WBC 6-10 H Ur Squamous Epith Cells 3-5 Urine Bacteria 4+ Hyaline Casts 0-2 10/26/21 10/26/21 10/26/21 04:35 06:59 11:14 Anion Gap Estim Creat Clear Calc Estimated GFR POC Glucose 227 H 159 H Random Glucose Calcium B-Natriuretic Peptide 486 H Urine Color Urine Appearance Urine pH Ur Specific [place] Urine Protein Urine Glucose (UA) Urine Ketones Urine Blood Urine Nitrite Ur Leukocyte Esterase Urine RBC Urine WBC Ur Squamous Epith Cells Urine Bacteria Hyaline Casts Microbiology Microbiology Results: Microbiology 10/25/21 10:55 Blood Culture - Preliminary Blood - Venous No growth after 24 hours. 10/25/21 10:55 Blood Culture - Preliminary Blood - Venous No growth after 24 hours. 10/25/21 17:38 Urine Culture - Preliminary Urine clean catch - Urine gross top Culture in progress. Assessment and Plan (1) Acute diastolic heart failure: Status: Acute (2) Hypoxia: Status: Acute (3) Dyspnea: Status: Acute (4) Lung cancer: Status: Acute Plan 76-year-old female patient with past medical history significant for diabetes mellitus type 2, cholelithiasis, left carotid artery aneurysm, history of lung cancer status post lobectomy in 2019 presented to [facility] with gradually worsening shortness of breath and dry cough worse with exertion for 1 week duration associated with orthopnea and brief episode of chest discomfort yesterday that resolved by itself, with no associated fever chills patient noted to have elevated BNP and CT chest showing pulmonary edema patient will be admitted to telemetry continued monitoring and treatment. ?Dyspnea on exertion ?differential diagnosis,likely acute congestive heart failure with no prior history of CHF, no prior history of COPD, no wheeze, no fevers , chills? no leukocytosis,less likely pneumonia, other differential include chronic interstitial fibrosis, small airway disease, lymphangitic spread of tumor echocardiogram showed mild diastolic dysfunction grade 1, moderate pulmonary hypertension, EF 65% and moderately increased left ventricular wall thickness continue IV Lasix 20 mg b.i.d. ?monitor Is/Os, repeat BNP and BMP ?patient seen by Dr. Power from Cardiology he agreed with diuretics and recommended pulmonary follow-up patient seen by Dr. Parks case discussed with him further studies will be ordered by him to rule out vasculitis and connective tissue disease due to family history of rheumatoid arthritis follow clinical course and wean oxygen as tolerated will obtain home O2 eval prior to discharge Hypertension not on home medication started on low-dose beta blockers BP remains elevated will place patient on low-dose lisinopril ?abnormal EKG noted to have T-wave inversion in anterior leads , repeat EKG remains unchanged echocardiogram showed no wall motion abnormality, no further workup warranted. ?acute hypoxic respiratory failure due to above continue oxygen therapy patient not on home O2 gradually wean oxygen follow clinical course ?diabetes mellitus type 2 stable blood sugars,hold metformin continue glimepiride placed on insulin sliding scale and diabetic diet ?history of lung cancer status post lobectomy in [address] Soriano as outpatient recently evaluated and noted to have no recurrence of disease no flow vitamin B12/vitamin-D deficiency continue supplements ?code status full code ?DVT prophylaxis with Lovenox ?patient will need continued inpatient hospitalization due to persistent hypoxia and shortness of breath workup in progress Quality Stroke Does the patient have a stroke diagnosis?: No VTE Prior VTE?: No VTE Risk Level:: Medical - moderate - high VTE Device Contraindication: Treatment Not Indicated VTE Drug Contraindication: N/A - Med Ordered
[2021-10-26 16:38] LABS: Erythrocyte Sedimentation Rate 17 MM/HR (0-20)
[2021-10-26 16:53] LABS: Adenovirus PCR Not Detected (Not Detect.); Bordetella parapertussis PCR Not Detected (Not Detect.); Bordetella pertussis PCR Not Detected (Not Detect.); Chlamydia pneumoniae PCR Not Detected (Not Detect.); Coronavirus 229E PCR Not Detected (Not Detect.); Coronavirus HKU1 PCR Not Detected (Not Detect.); Coronavirus NL63 PCR Not Detected (Not Detect.); Coronavirus OC43 PCR Not Detected (Not Detect.); Human metapneumovirus PCR Not Detected (Not Detect.); Influenza A PCR Not Detected (Not Detect.); Influenza B PCR Not Detected (Not Detect.); Mycoplasma pneumoniae PCR Not Detected (Not Detect.); Parainfluenza 1 PCR Not Detected (Not Detect.); Parainfluenza 2 PCR Not Detected (Not Detect.); Parainfluenza 3 PCR Not Detected (Not Detect.); Parainfluenza 4 PCR Not Detected (Not Detect.); RSV PCR Not Detected (Not Detect.); Rhino/Enterovirus PCR Not Detected (Not Detect.); SARS-CoV-2 PCR Not Detected (Not Detect.)
[2021-10-26 17:15] LABS: Glucose, Whole Blood 208 mg/dL (60-115)
--- NOTE | 2021-10-26 20:24 | P.CONPL_ITS ---
History of Present Illness History of Present Illness Consult date: 10/26/21 Chief complaint: dyspnea on exertion Narrative: This is an inpatient pulmonary consultation. The patient is a 76-year-old female patient with past medical history significant for lung cancer diagnosed in 2019, is status post left upper lobe wedge resection and mediastinal lymphandectomy. Apparently patient has been complaining of worsening shortness of breath now for several months. She can look back to about a year ago when she started noticing some increasing dyspnea on exertion. Initially mouth and then moderate severity. About 4 months ago the daughter noticed worsening respiratory symptoms that were more apparent. The patient did follow-up with a CT scan of the chest in September 2021 as far as her lung cancer surveillance and was noted that she did not have any evidence of any recurrence although, she did have some evidence of ground-glass appearing areas the patient continued to have shortness of breath. The patient presented to [facility] today with symptoms of shortness of breath associated with dry cough worse with exertion associated with orthopnea, PND patient denies bilateral leg swelling yesterday patient had a brief episode of chest pressure but resolved by itself since as shortness of breath was gradually progressing she came to the emergency room and was noted to have significant hypoxia with oxygenation dropping to 60s with exertion, chest x-ray showed scattered bilateral ground-glass opacities and no effusion, a CTA chest showed left upper lobe lobectomy with associated shift of the mediastinum towards the left there was extensive diffuse bilateral intersti tial process. In the emergency room treated with IV Lasix and IV Solu Medrol and now being admitted to [facility] with acute hypoxic respiratory failure likely due to pulmonary edema with elevated BNP of 360 patient denies prior history of heart failure, no history of coronary artery disease, EKG showing new T-wave inversion V2 to V4, normal troponin 12.9. the patient did undergo an echocardiogram demonstrating normal ejection fraction with mild diastolic dysfunction. She did have evidence of pulmonary hypertension. She has been diuresed. Her oxygen requirements have decreased from 6 L to 3.5 L. will plan to repeat the chest x-ray to see if there is any significant improvement after diuresis. In the meantime will go ahead and start workup for interstitial lung disease and pneumonitis. On further questioning she does have a history of connective tissue diseases. Her sister and mother all both have significant rheumatoid arthritis. 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 Review of Systems Review of Systems: Yes all other systems are reviewed and are negative Constitutional: Constitutional: Reports as per HPI and Denies fever(s) Eyes: Eyes: Reports as per HPI ENT: Reports as per HPI and Denies dysphagia Cardiovascular: Cardiovascular: Reports as per HPI, Denies acrocyanosis, Denies cool extremities, Denies chest pain, Denies leg edema, Denies lightheadedness, Denies palpitations and Reports dyspnea Respiratory: Respiratory: Reports as per HPI, Reports no additional respiratory complaints and Reports dyspnea Gastrointestinal: Gastrointestinal: Reports as per HPI, Reports no additional gastrointestinal complaints and Denies dysphagia Genitourinary: Genitourinary: Reports as per HPI Musculoskeletal: Musculoskeletal: Reports no additional musculoskeletal complaints and Reports as per HPI Integumentary/Breasts: Skin/Breast: Reports system reviewed and no additional complaints, except as docu Neurologic: Reports system reviewed and no additional complaints, except as documented and Reports as per HPI Psychiatric: Psychiatric: Reports no additional psychiatric complaints and Reports as per HPI Endocrine: Endocrine: Reports no additional endocrine complaints, Reports as per HPI and Denies palpitations Hematologic/Lymphatic: Hematologic/Lymphatic: Reports no additional hematologic/lymphatic complaints and Reports as per HPI Allergic/Immunologic: Allergic/Immunologic: Reports no additional a llergic/immunologic complaints and Reports as per HPI PMFSH Past Medical History Medical History Adrenal adenoma Carotid aneurysm, left Cholelithiasis Hypercholesterolemia Hypertension Lung cancer (~2019) Type 2 diabetes mellitus with hyperglycemia Family History Family History Father No problems noted. Mother Stroke Surgical History Surgical History History of cataract surgery (~2019) History of lobectomy of lung (~2019) Social History Social History Household Members: Family Housing: House Do you presently have visiting nurse or other home services: No Alcohol intake: never Patient Tobacco Use Status: Former Tobacco user Tobacco use type: Cigarette e-Cigarette/Vaping Use: Never Used Second Hand Smoke Exposure: No service: No Current occupational status: retired Cognitive needs: No Hearing needs: No Vision needs: Yes Meds Allergies Allergy/AdvReac Type Severity Reaction Status Date / Time No Known Allergies Allergy Verified 10/15/21 11:27 [No Known Allergies*] Active Medications: Current Medications Acetaminophen (Acetaminophen 325 Mg Tablet) 650 mg PO Q6H PRN PRN Reason: Pain, Mild (Pain Scale 1-3) Cyanocobalamin (Cyanocobalamin (Vitamin B-12) 1,000 Mcg Tablet) 1,000 mcg PO DAILY [facility] Last Admin: 10/26/21 07:38 Dose: 1,000 mcg Dextrose (Dextrose 50 % 25 Gm/50 Ml Syringe) 25 gm IVPUSH Q15M PRN; Protocol PRN Reason: per Hypoglycemia Standing Ord. Furosemide (Furosemide 20 Mg/2 Ml Vial) 20 mg IVPUSH BID@0900,1800 [facility]; Protocol Last Admin: 10/26/21 18:29 Dose: 20 mg Glipizide (Glipizide 10 Mg Tablet) 10 mg PO DAILY [facility] Last Admin: 10/26/21 10:32 Dose: 10 mg Glucose (Glucose Gel 15 Gm Gel..Gram.) 15 gm PO Q15M PRN; Protocol PRN Reason: per Hypoglycemia Standing Ord. Insulin Human Lispro (Insulin Lispro 100 Unit/Ml 3 Ml Vial) 0 unit SUBCUT QIDACHS [facility]; Protocol Last Admin: 10/26/21 17:11 Dose: 4 unit Metoprolol Tartrate (Metoprolol Tartrate 25 Mg Tablet) 25 mg PO BID [facility]; Protocol Last Admin: 10/26/21 07:39 Dose: 25 mg Ondansetron HCl (Ondansetron Hcl 4 Mg/2 Ml Vial) 4 mg IVPUSH Q8H PRN PRN Reason: Nausea and Vomiting Pharmacy Consult (Consult Rx Perform Med Rec) 1 each MISCELLANE ONCE PRN PRN Reason: Consult order Sodium Chloride (0.9 % Sodium Chloride Flush 3 Ml Syringe) 3 ml IVFLUSH QSHIFT [facility] Last Admin: 10/26/21 17:13 Dose: 3 ml Vitamin D (Cholecalciferol (Vitamin D3) 25 Mcg Tablet) 50 mcg PO DAILY [facility] Last Admin: 10/26/21 07:38 Dose: 50 mcg Physical Exam Vital Signs: Vital Signs: Last Vital Signs Temp 97.5 F 10/26/21 19:48 Pulse 81 10/26/21 19:48 Resp 20 10/26/21 19:48 BP 166/75 H 10/26/21 19:48 Pulse Ox 93 10/26/21 19:48 O2 Del Method 10/26/21 19:48 O2 Flow Rate 4 10/26/21 19:48 Oxygen Flow Rate 5 10/25/21 12:00 BMI result Body Mass Index 28.7 Const: General: comfortable and no acute distress Orientation/consciousness: patient oriented x3 HEENT: Other: Unremarkable Head: Yes normal to inspection Neck: Neck: Yes normal visual inspection Chest: Chest palpation & inspection: normal inspection of the chest Resp: Other: Few basal crackles Auscultation: rales, diminished lung sounds and bronchial breath sounds Cardio: Heart sounds: S1 normal heart sound present, S2 normal heart sound present, no gallops, no murmurs and no rubs GI: Palpation (GI): Soft to palpation Back/Spine/Pelvis: Other: unremarkable Skin: General skin exam: no rashes or lesions noted Neuro: General: patient oriented x3 Extrem: General: Yes normal to inspection Psych: Mental Status: mental status grossly normal Results Laboratory Findings CBC and BMP: 10/25/21 10:55 10/26/21 04:35 Abnormal lab findings: Abnormal Labs 10/25/21 10/25/21 10/25/21 10:55 10:55 10:55 Hct 36.2 L Neut % (Auto) 80.5 H Lymph % (Auto) 12.1 L Lymph # (Auto) 1.1 L Carbon Dioxide 21 L POC Glucose Random Glucose 179 H B-Natriuretic Peptide 360 H Ur Specific [place] Urine Nitrite Ur Leukocyte Esterase Urine WBC 10/25/21 10/25/21 10/25/21 12:58 17:38 19:38 Hct Neut % (Auto) Lymph % (Auto) Lymph # (Auto) Carbon Dioxide POC Glucose 154 H 167 H Random Glucose B-Natriuretic Peptide Ur Specific [place] >= 1.030 H Urine Nitrite Positive H Ur Leukocyte Esterase Small (1+) H Urine WBC 6-10 H 10/26/21 10/26/21 10/26/21 04:35 04:35 06:59 Hct Neut % (Auto) Lymph % (Auto) Lymph # (Auto) Carbon Dioxide POC Glucose 227 H Random Glucose 306 H B-Natriuretic Peptide 486 H Ur Specific [place] Urine Nitrite Ur Leukocyte Esterase Urine WBC 10/26/21 10/26/21 11:14 16:50 Hct Neut % (Auto) Lymph % (Auto) Lymph # (Auto) Carbon Dioxide POC Glucose 159 H 208 H Random Glucose B-Natriuretic Peptide Ur Specific [place] Urine Nitrite Ur Leukocyte Esterase Urine WBC Microbiology: Microbiology 10/25/21 10:55 Blood - Venous Blood Culture - Preliminary No growth after 24 hours. 10/25/21 10:55 Blood - Venous Blood Culture - Preliminary No growth after 24 hours. 10/25/21 17:38 Urine clean catch - Urine gross top Urine Culture - Preliminary Culture in progress. Assessment and Plan (1) Acute respiratory failure: Status: Acute (2) Pneumonitis: Status: Acute (3) Lung cancer: Qualifiers: Laterality: left Lung location: upper lobe of lung Qualified Code(s): C34.12 - Malignant neoplasm of upper lobe, left bronchus or lung Status: Acute Plan For the patient is presenting with concerning Alveolar filling process. Denies any hemoptysis therefore very unlikely to be diffuse alveolar hemorrhage. acute pneumonitis is suspected. Less likely lymphangitic carcinomatosis. May have a component of congestive heart failure, but, on likely the primary cause. I am concerned that this may be a presentation of acute respiratory distress syndrome therefore will have to monitor closely for any worsening. Recommendations: Continue diuresis as tolerated will review the echo and will repeat the chest x-ray requesting workup for connective tissue conditions, inflammatory conditions in allergic reactions if the patient is not any better after diuresis that will go ahead and start systemic corticosteroids Continue oxygen supplementation to maintain a pulse ox above 90% Procedures Date of Service Date of Service: 10/26/21
[2021-10-26 21:39] LABS: Glucose, Whole Blood 196 mg/dL (60-115)
[2021-10-27] VITALS (7 sets, daily range): BP systolic 129–147; BP diastolic 69–88; PULSE 62–80; RESP 17–18; TEMP 36.1–36.8; O2SAT 92–100
[2021-10-27 07:47] LABS: Glucose, Whole Blood 148 mg/dL (60-115)
[2021-10-27] MEDS: Cholecalciferol (Vitamin D3) 25 MCG TABLET 50 MCG PO (09:31)
[2021-10-27] MEDS: glipiZIDE 10 MG TABLET PO (09:31)
[2021-10-27] MEDS: Cyanocobalamin (Vitamin B-12) 1,000 MCG TABLET 1000 MCG PO (09:32)
[2021-10-27] MEDS: Metoprolol Succinate ER 50 MG TAB.ER.24H PO (09:32)
[2021-10-27] MEDS: Furosemide 20 MG/2 ML VIAL IVPUSH (09:32)
[2021-10-27] MEDS: 0.9 % Sodium Chloride Flush 3 ML SYRINGE IVFLUSH ×2 (09:32→16:07)
--- NOTE | 2021-10-27 09:33 | P.PNPL_ITS ---
Subjective Subjective Date of Service: 10/27/21 Interval history: The patient was seen on a side. Today she feels a little better. She still on 4 L of oxygen. She did have a chest x-ray today demonstrating some slight interval improvements primarily in the right upper area and the left upper area to less degree. She also had an echocardiogram demonstrating mild diastolic dysfunction and also moderate pulmonary hypertension. The patient indeed was volume overloaded and she did well with diuresis. Still she has significant interstitial disease. We did look at the CT scan from September of 2021 and compared to the most recent CT scan demonstrating interval worsening of the ground-glass opacities and reticular changes. We have already requested blood work assessing for inflammatory conditions. In the meantime since she still continues to have an abnormal findings on the x-ray and oxygen requirements will start her on Solumedrol. Objective Data Labs CBC & Chem 7: 10/25/21 10:55 10/26/21 04:35 Labs: Laboratory Results - last 24 hr 10/26/21 10/26/21 10/26/21 11:14 13:45 15:28 ESR 17 POC Glucose 159 H Respiratory Panel Be See Note Adenovirus (Rapid PCR) Not Detected B.pert (TEM-PCR) Not Detected B.parapertussis DNA PCR Not Detected C. pneumoniae DNA (PCR) Not Detected Coronavirus OC43 (PCR) Not Detected Coronavirus HKU1 (PCR) Not Detected Coronavirus 229E (PCR) Not Detected Coronavirus NL63 (PCR) Not Detected Human Metapneumovir PCR Not Detected Influenza A (RT-PCR) Not Detected Influenza B (RT-PCR) Not Detected M. pneumoniae (PCR) Not Detected Parainfluenza 1 (PCR) Not Detected Parainfluenza 2 (PCR) Not Detected Parainfluenza 3 (PCR) Not Detected Parainfluenza 4 (PCR) Not Detected RSV (PCR) Not Detected Entero/Rhino (PCR) Not Detected SARS-CoV-2 RNA (RT-PCR) Not Detected 10/26/21 10/26/21 10/27/21 16:50 21:34 07:28 ESR POC Glucose 208 H 196 H 148 H Respiratory Panel Be Adenovirus (Rapid PCR) B.pert (TEM-PCR) B.parapertussis DNA PCR C. pneumoniae DNA (PCR) Coronavirus OC43 (PCR) Coronavirus HKU1 (PCR) Coronavirus 229E (PCR) Coronavirus NL63 (PCR) Human Metapneumovir PCR Influenza A (RT-PCR) Influenza B (RT-PCR) M. pneumoniae (PCR) Parainfluenza 1 (PCR) Parainfluenza 2 (PCR) Parainfluenza 3 (PCR) Parainfluenza 4 (PCR) RSV (PCR) Entero/Rhino (PCR) SARS-CoV-2 RNA (RT-PCR) Microbiology Microbiology Results: Microbiology 10/25/21 10:55 Blood - Venous Blood Culture - Preliminary No growth after 24 hours. 10/25/21 10:55 Blood - Venous Blood Culture - Preliminary No growth after 24 hours. 10/25/21 17:38 Urine clean catch - Urine gross top Urine Culture - Pr eliminary Culture in progress. Review of Systems Review of Systems Yes all other systems are reviewed and are negative Constitutional: Reports as per HPI and Denies fever(s) Eyes: Reports as per HPI Reports as per HPI and Denies dysphagia Cardiovascular: Reports as per HPI, Denies acrocyanosis, Denies cool extremities, Denies chest pain, Denies leg edema, Denies lightheadedness, Denies palpitations and Reports dyspnea Respiratory: Reports as per HPI, Reports no additional respiratory complaints and Reports dyspnea Gastrointestinal: Reports as per HPI, Reports no additional gastrointestinal complaints and Denies dysphagia Genitourinary: Reports as per HPI Musculoskeletal: Reports no additional musculoskeletal complaints and Reports as per HPI Skin/Breast: Reports system reviewed and no additional complaints, except as docu Reports system reviewed and no additional complaints, except as documented and Reports as per HPI Psychiatric: Reports no additional psychiatric complaints and Reports as per HPI Endocrine: Reports no additional endocrine complaints, Reports as per HPI and Denies palpitations Hematologic/Lymphatic: Reports no additional hematologic/lymphatic complaints and Reports as per HPI Allergic/Immunologic: Reports no additional allergic/immunologic complaints and Reports as per HPI Physical Exam Vital Signs: Vital Signs: Last Vital Signs Temp 97.2 F 10/27/21 07:30 Pulse 67 10/27/21 07:30 Resp 17 10/27/21 07:30 BP 142/80 H 10/27/21 07:30 Pulse Ox 95 10/27/21 07:30 O2 Del Method 10/27/21 07:30 O2 Flow Rate 4 10/27/21 07:30 Oxygen Flow Rate 5 10/25/21 12:00 BMI result Body Mass Index 28.7 Const: General: comfortable and no acute distress Orientation/consciousness: patient oriented x3 HEENT: Other: Unremarkable Head: Yes normal to inspection Neck: Neck: Yes normal visual inspection Chest: Chest palpation & inspection: normal inspection of the chest Resp: Other: Few basal crackles Auscultation: rales, diminished lung sounds and bronchial breath sounds Cardio: Heart sounds: S1 normal heart sound present, S2 normal heart sound present, no gallops, no murmurs and no rubs GI: Palpation (GI): Soft to palpation Back/Spine/Pelvis: Other: unremarkable Skin: General skin exam: no rashes or lesions noted Neuro: General: patient oriented x3 Extrem: General: Yes normal to inspection Psych: Mental Status: mental status grossly normal Procedures Date of Service Date of Service: 10/27/21 Assessment and Plan Assessment and plan (1) Pneumonitis: Status: Acute (2) Acute respiratory failure: Status: Acute (3) Acute diastolic heart failure: Status: Acute (4) Pulmonary hypertension: Status: Acute (5) Lung cancer: Problem details: (WILLIAMS 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 Time Spent With Patient Time: Total time spent is greater than 50% in coordination of care (as documented) at patient's floor/unit and/or counseling patient: Progress Note: Quality Stroke Does the patient have a stroke diagnosis?: No
--- NOTE | 2021-10-27 09:41 | PM.PNCARD ---
Subjective Subjective Date of Service: 10/27/21 Interval history: She states that she is feeling better. Shortness of breath is improved. No other cardiac symptoms. Review of Systems Review of Systems Yes all other systems are reviewed and are negative Constitutional: Reports as per HPI Eyes: Reports as per HPI Reports as per HPI Cardiovascular: Reports as per HPI, Denies acrocyanosis, Denies cool extremities, Denies chest pain, Denies leg edema, Denies lightheadedness, Denies palpitations and Reports dyspnea Respiratory: Reports as per HPI, Reports no additional respiratory complaints and Reports dyspnea Gastrointestinal: Reports as per HPI and Reports no additional gastrointestinal complaints Genitourinary: Reports as per HPI Musculoskeletal: Reports no additional musculoskeletal complaints and Reports as per HPI Skin/Breast: Reports system reviewed and no additional complaints, except as docu Reports system reviewed and no additional complaints, except as documented and Reports as per HPI Psychiatric: Reports no additional psychiatric complaints and Reports as per HPI Endocrine: Reports no additional endocrine complaints, Reports as per HPI and Denies palpitations Hematologic/Lymphatic: Reports no additional hematologic/lymphatic complaints and Reports as per HPI Allergic/Immunologic: Reports no additional allergic/immunologic complaints and Reports as per HPI Physical Exam Vital Signs: Last Vital Signs Temp 97.2 F 10/27/21 07:30 Pulse 67 10/27/21 07:30 Resp 17 10/27/21 07:30 BP 142/80 H 10/27/21 07:30 Pulse Ox 95 10/27/21 07:30 O2 Del Method 10/27/21 07:30 O2 Flow Rate 4 10/27/21 07:30 Oxygen Flow Rate 5 10/25/21 12:00 BMI result Body Mass Index 28.7 Const General: comfortable and no acute distress Orientation/consciousness: patient oriented x3 HEENT Other: Unremarkable Head: Yes normal to inspection Neck Neck: Yes normal visual inspection Chest Chest palpation & inspection: normal inspection of the chest Resp Other: Few basal crackles. Cardio Palpation: normal PMI Heart sounds: S1 normal heart sound present, S2 normal heart sound present, no gallops, no murmurs and no rubs GI Palpation (GI): Soft to palpation Back/Spine/Pelvis Other: unremarkable Skin General skin exam: no rashes or lesions noted Neuro General: patient oriented x3 Extrem General: Yes normal to inspection Psych Mental Status: mental status grossly normal Objective Labs and Meds Result diagrams: 10/25/21 10:55 10/26/21 04:35 Lab results: Laboratory Results - last 24 hr 10/26/21 10/26/21 10/26/21 11:14 13:45 15:28 ESR 17 POC Glucose 159 H Respiratory Panel Be See Note Adenovirus (Rapid PCR) Not Detected B.pert (TEM-PCR) Not Detected B.parapertussis DNA PCR Not Detected C. pneumoniae DNA (PCR) Not Detected Coronavirus OC43 (PCR) Not Detected Coronavirus HKU1 (PCR) Not Detected Coronavirus 229E (PCR) Not Detected Coronavirus NL63 (PCR) Not Detected Human Metapneumovir PCR Not Detected Influenza A (RT-PCR) Not Detected Influenza B (RT-PCR) Not Detected M. pneumoniae (PCR) Not Detected Parainfluenza 1 (PCR) Not Detected Parainfluenza 2 (PCR) Not Detected Parainfluenza 3 (PCR) Not Detected Parainfluenza 4 (PCR) Not Detected RSV (PCR) Not Detected Entero/Rhino (PCR) Not Detected SARS-CoV-2 RNA (RT-PCR) Not Detected 10/26/21 10/26/21 10/27/21 16:50 21:34 07:28 ESR POC Glucose 208 H 196 H 148 H Respiratory Panel Be Adenovirus (Rapid PCR) B.pert (TEM-PCR) B.parapertussis DNA PCR C. pneumoniae DNA (PCR) Coronavirus OC43 (PCR) Coronavirus HKU1 (PCR) Coronavirus 229E (PCR) Coronavirus NL63 (PCR) Human Metapneumovir PCR Influenza A (RT-PCR) Influenza B (RT-PCR) M. pneumoniae (PCR) Parainfluenza 1 (PCR) Parainfluenza 2 (PCR) Parainfluenza 3 (PCR) Parainfluenza 4 (PCR) RSV (PCR) Entero/Rhino (PCR) SARS-CoV-2 RNA (RT-PCR) Progress Note: A&P Assessment and plan (1) Acute diastolic heart failure: Status: Acute (2) Pulmonary hypertension: Status: Acute (3) Hypertension: Status: Acute Plan Echocardiogram reviewed. LVEF preserved at 65%. No wall motion abnormalities. Evidence of increased filling pressures and mild diastolic dysfunction. Right ventricular size mildly increased. There is also evidence of pulmonary hypertension. Suspect that her symptoms are more than likely pulmonary with some components of cardiac. Not believe cardiac is a primary issue. Having said that, can continue empiric diuretics at a small dose. Otherwise, there is evidence of left ventricular hypertrophy, probably from hypertension. Can add medication for that, probably losartan. Discussed with Dr. Jensen. Time Spent With Patient Time: Total time spent is greater than 50% in coordination of care (as documented) at patient's floor/unit and/or counseling patient: 35min Progress Note: Quality Stroke Does the patient have a stroke diagnosis?: No Procedures Date of Service Date of Service: 10/27/21
[2021-10-27 12:18] LABS: Myeloperoxidase Antibody <1.0 AI; Proteinase 3 PR3 Antibodies <1.0 AI
[2021-10-27 12:21] LABS: Glucose, Whole Blood 178 mg/dL (60-115)
[2021-10-27] MEDS: Insulin Lispro 100 UNIT/ML 3 ML VIAL SUBCUT ×2 (12:28→21:21)
--- NOTE | 2021-10-27 13:12 | MHC.CM.PN ---
Female 76 DX Dyspnea on exhertion Patient continues on oxygen. Work up continues. She requires 5L via NC today. DP dependent on patients recovery. Home with services seems likey for dispo. Patient will arrange for transportation home.
[2021-10-27 13:56] LABS: Cyclic Citrullinated Peptide <16 UNITS
--- NOTE | 2021-10-27 15:21 | HO.PM.IMPN ---
Subjective Subjective Date of Service: 10/27/21 Interval History: patient feels better this morning denies chest pain, no shortness of breath at rest, decreased oxygen requirement currently 96% on 4 L of oxygen, denies fevers, no chills, tolerating diet with no nausea no vomiting, no abdominal pain or diarrhea. Review of Systems Review of Systems: Yes all other systems are reviewed and are negative Physical Exam Vital Signs: Vital Signs: Last Vital Signs Temp 97.5 F 10/27/21 11:32 Pulse 70 10/27/21 11:32 Resp 18 10/27/21 11:32 BP 144/84 H 10/27/21 11:32 Pulse Ox 96 10/27/21 11:32 O2 Del Method 10/27/21 11:32 O2 Flow Rate 4 10/27/21 11:32 Oxygen Flow Rate 5 10/25/21 12:00 BMI result Body Mass Index 28.7 Const: Other: General? awake alert x3,in no acute distress. Neck? supple no JVD. CVS? regular rate rhythm, Respiratory lungs? bibasilar crackles, no respiratory distress, no wheeze, no rhonchi. Gastrointestinal abdomen soft, nontender, bowel sounds audible, no guarding , no rigidity. Extremities no? edema. Neuro nonfocal Skin no rash psych appropriate affect Objective Data Active Medications Acetaminophen (Acetaminophen 325 Mg Tablet) 650 mg PO Q6H PRN PRN Reason: Pain, Mild (Pain Scale 1-3) Cyanocobalamin (Cyanocobalamin (Vitamin B-12) 1,000 Mcg Tablet) 1,000 mcg PO DAILY [facility] Last Admin: 10/27/21 09:32 Dose: 1,000 mcg Documented By: AMOS Dextrose (Dextrose 50 % 25 Gm/50 Ml Syringe) 25 gm IVPUSH Q15M PRN; Protocol PRN Reason: per Hypoglycemia Standing Ord. Furosemide (Furosemide 20 Mg/2 Ml Vial) 20 mg IVPUSH BID@0900,1800 [facility]; Protocol Last Admin: 10/27/21 09:32 Dose: 20 mg Documented By: AMOS Glipizide (Glipizide 10 Mg Tablet) 10 mg PO DAILY [facility] Last Admin: 10/27/21 09:31 Dose: 10 mg Documented By: AMOS Glucose (Glucose Gel 15 Gm Gel..Gram.) 15 gm PO Q15M PRN; Protocol PRN Reason: per Hypoglycemia Standing Ord. Insulin Human Lispro (Insulin Lispro 100 Unit/Ml 3 Ml Vial) 0 unit SUBCUT QIDACHS [facility]; Protocol Last Admin: 10/27/21 12:28 Dose: 2 unit Documented By: AMOS Metoprolol Succinate (Metoprolol Succinate Er 50 Mg Tab.Er.24h) 50 mg PO DAILY [facility]; Protocol Last Admin: 10/27/21 09:32 Dose: 50 mg Documented By: AMOS Ondansetron HCl (Ondansetron Hcl 4 Mg/2 Ml Vial) 4 mg IVPUSH Q8H PRN PRN Reason: Nausea and Vomiting Pharmacy Consult (Consult Rx Perform Med Rec) 1 each MISCELLANE ONCE PRN PRN Reason: Consult order Sodium Chloride (0.9 % Sodium Chloride Flush 3 Ml Syringe) 3 ml IVFLUSH QSHIFT [facility] Last Admin: 10/27/21 09:32 Dose: 3 ml Documented By: AMOS Vitamin D (Cholecalciferol (Vitamin D3) 25 Mcg Tablet) 50 mcg PO DAILY [facility] Last Admin: 10/27/21 09:31 Dose: 50 mcg Documented By: AMOS Labs CBC & Chem 7: 10/25/21 10:55 10/26/21 04:35 Labs: Laboratory Results - last 24 hr 10/26/21 10/26/21 10/26/21 13:45 15:28 15:28 ESR 17 POC Glucose Cycl Citrul Peptide IgG <16 Proteinase 3 (PR3) Ab Myeloperoxidase Ab Respiratory Panel Be See Note Adenovirus (Rapid PCR) Not Detected B.pert (TEM-PCR) Not Detected B.parapertussis DNA PCR Not Detected C. pneumoniae DNA (PCR) Not Detected Coronavirus OC43 (PCR) Not Detected Coronavirus HKU1 (PCR) Not Detected Coronavirus 229E (PCR) Not Detected Coronavirus NL63 (PCR) Not Detected Human Metapneumovir PCR Not Detected Influenza A (RT-PCR) Not Detected Influenza B (RT-PCR) Not Detected M. pneumoniae (PCR) Not Detected Parainfluenza 1 (PCR) Not Detected Parainfluenza 2 (PCR) Not Detected Parainfluenza 3 (PCR) Not Detected Parainfluenza 4 (PCR) Not Detected RSV (PCR) Not Detected Entero/Rhino (PCR) Not Detected SARS-CoV-2 RNA (RT-PCR) Not Detected 10/26/21 10/26/21 10/26/21 15:28 16:50 21:34 ESR POC Glucose 208 H 196 H Cycl Citrul Peptide IgG Proteinase 3 (PR3) Ab <1.0 Myeloperoxidase Ab <1.0 Respiratory Panel Be Adenovirus (Rapid PCR) B.pert (TEM-PCR) B.parapertussis DNA PCR C. pneumoniae DNA (PCR) Coronavirus OC43 (PCR) Coronavirus HKU1 (PCR) Coronavirus 229E (PCR) Coronavirus NL63 (PCR) Human Metapneumovir PCR Influenza A (RT-PCR) Influenza B (RT-PCR) M. pneumoniae (PCR) Parainfluenza 1 (PCR) Parainfluenza 2 (PCR) Parainfluenza 3 (PCR) Parainfluenza 4 (PCR) RSV (PCR) Entero/Rhino (PCR) SARS-CoV-2 RNA (RT-PCR) 10/27/21 10/27/21 07:28 11:31 ESR POC Glucose 148 H 178 H Cycl Citrul Peptide IgG Proteinase 3 (PR3) Ab Myeloperoxidase Ab Respiratory Panel Be Adenovirus (Rapid PCR) B.pert (TEM-PCR) B.parapertussis DNA PCR C. pneumoniae DNA (PCR) Coronavirus OC43 (PCR) Coronavirus HKU1 (PCR) Coronavirus 229E (PCR) Coronavirus NL63 (PCR) Human Metapneumovir PCR Influenza A (RT-PCR) Influenza B (RT-PCR) M. pneumoniae (PCR) Parainfluenza 1 (PCR) Parainfluenza 2 (PCR) Parainfluenza 3 (PCR) Parainfluenza 4 (PCR) RSV (PCR) Entero/Rhino (PCR) SARS-CoV-2 RNA (RT-PCR) Microbiology Microbiology Results: Microbiology 10/25/21 10:55 Blood Culture - Preliminary Blood - Venous No growth after 48 hours. 10/25/21 10:55 Blood Culture - Preliminary Blood - Venous No growth after 48 hours. 10/25/21 17:38 Urine Culture - Preliminary Urine clean catch - Urine gross top Gram negative melissa Assessment and Plan (1) Acute diastolic heart failure: Status: Acute (2) Hypoxia: Status: Acute (3) Dyspnea: Status: Acute (4) Lung cancer: Status: Acute Plan 76-year-old female patient with past medical history significant for diabetes mellitus type 2, cholelithiasis, left carotid artery aneurysm, history of lung cancer status post lobectomy in 2019 presented to [facility] with gradually worsening shortness of breath and dry cough worse with exertion for 1 week duration associated with orthopnea and brief episode of chest discomfort yesterday that resolved by itself, with no associated fever chills patient noted to have elevated BNP and CT chest showing pulmonary edema patient will be admitted to telemetry continued monitoring and treatment. ?Dyspnea on exertion Feeling better this morning, less shortness of breath no orthopnea no PND ?differential diagnosis,likely acute diastolic congestive heart failure with no prior history of CHF, no prior history of COPD, no wheeze, no fevers , chills? no leukocytosis,less likely pneumonia, other differential include chronic interstitial fibrosis, small airway disease, lymphangitic spread of tumor echocardiogram showed mild diastolic dysfunction grade 1, moderate pulmonary hypertension, EF 65% and moderately increased left ventricular wall thickness will DC IV Lasix 20 mg b.i.d. and placed on Lasix 20 mg daily ?patient seen by Dr. Power from Cardiology he agreed for low-dose diuretics but feels mainly shortness of breath are from pulmonary source patient seen by Dr. Parks he compared prior CT with current CT and noted to have worsening ground-glass opacities therefore he recommend IV steroids, other studies ordered by him to rule out vasculitis and connective tissue disease due to family history of rheumatoid arthritis ,result pending follow clinical course and wean oxygen as tolerated will obtain home O2 eval prior to discharge Hypertension not on home medication started on low-dose beta blockers BP remains elevated Cardio recommend to place on losartan will DC beta blockers ?abnormal EKG noted to have T-wave inversion in anterior leads , repeat EKG remains unchanged echocardiogram showed no wall motion abnormality, no further workup warranted. ?acute hypoxic respiratory failure due to above continue oxygen therapy patient not on home O2 gradually wean oxygen follow clinical course ?diabetes mellitus type 2 stable blood sugars,hold metformin continue glimepiride placed on insulin sliding scale and diabetic diet ?history of lung cancer status post lobectomy in [address] Soriano as outpatient recently evaluated and noted to have no recurrence of disease vitamin B12/vitamin-D deficiency continue supplements ?code status full code ?DVT prophylaxis with Lovenox ?patient will need continued inpatient hospitalization due to persistent hypoxia and shortness of breath on iv steroids ,workup in progress Quality Stroke Does the patient have a stroke diagnosis?: No VTE Prior VTE?: No VTE Risk Level:: Medical - moderate - high VTE Device Contraindication: Treatment Not Indicated VTE Drug Contraindication: N/A - Med Ordered
[2021-10-27] MEDS: methylPREDNISolone Sod Succ 125 MG/2 ML VIAL 60 MG IVPUSH (16:05)
[2021-10-27 16:30] LABS: Glucose, Whole Blood 129 mg/dL (60-115)
[2021-10-27 21:10] LABS: Glucose, Whole Blood 346 mg/dL (60-115)
[2021-10-27 22:26] LABS: Immunoglobulin E 10 kU/L (<OR=114)
[2021-10-28] VITALS (7 sets, daily range): BP systolic 144–168; BP diastolic 75–87; PULSE 65–96; RESP 16–20; TEMP 36.2–36.6; O2SAT 92–99
[2021-10-28] MEDS: methylPREDNISolone Sod Succ 125 MG/2 ML VIAL 60 MG IVPUSH ×3 (00:40→16:07)
[2021-10-28] MEDS: 0.9 % Sodium Chloride Flush 3 ML SYRINGE IVFLUSH ×3 (00:43→16:11)
[2021-10-28 07:34] LABS: Glucose, Whole Blood 273 mg/dL (60-115)
[2021-10-28] MEDS: Insulin Lispro 100 UNIT/ML 3 ML VIAL SUBCUT ×5 (08:04→20:12)
[2021-10-28] MEDS: Furosemide 20 MG TABLET PO (08:05)
[2021-10-28] MEDS: glipiZIDE 10 MG TABLET PO (08:05)
[2021-10-28] MEDS: Cyanocobalamin (Vitamin B-12) 1,000 MCG TABLET 1000 MCG PO (08:06)
[2021-10-28] MEDS: Losartan Potassium 50 MG TABLET PO (08:06)
[2021-10-28] MEDS: Cholecalciferol (Vitamin D3) 25 MCG TABLET 50 MCG PO (08:06)
[2021-10-28 11:29] LABS: Glucose, Whole Blood 372 mg/dL (60-115)
[2021-10-28] MEDS: cefTRIAXone sodium 1 GM in 0.9 % Sodium Chloride 50 ML IV (11:57)
--- NOTE | 2021-10-28 13:00 | PM.PNPUL ---
Subjective Subjective Date of Service: 10/28/21 Interval history: The patient was seen on exam. She is feeling better this morning. She did start the Solu-Medrol. She still requiring 3-4 L of oxygen however. Her blood work is going back relatively negative. Objective Data Labs CBC & Chem 7: 10/25/21 10:55 10/26/21 04:35 Labs: Laboratory Results - last 24 hr 10/26/21 10/26/21 10/27/21 15:28 15:28 16:26 POC Glucose 129 H IgE 10 Cycl Citrul Peptide IgG <16 10/27/21 10/28/21 10/28/21 21:07 07:26 11:08 POC Glucose 346 H 273 H 372 H* IgE Cycl Citrul Peptide IgG Microbiology Microbiology Results: Microbiology 10/25/21 17:38 Urine clean catch - Urine gross top Urine Culture - Final Escherichia coli Strep agalactiae (Grp B) 10/25/21 10:55 Blood - Venous Blood Culture - Preliminary No growth after 48 hours. 10/25/21 10:55 Blood - Venous Blood Culture - Preliminary No growth after 48 hours. Review of Systems Review of Systems Yes all other systems are reviewed and are negative Constitutional: Reports as per HPI and Denies fever(s) Eyes: Reports as per HPI Reports as per HPI and Denies dysphagia Cardiovascular: Reports as per HPI, Denies acrocyanosis, Denies cool extremities, Denies chest pain, Denies leg edema, Denies lightheadedness, Denies palpitations and Reports dyspnea Respiratory: Reports as per HPI, Reports no additional respiratory complaints and Reports dyspnea Gastrointestinal: Reports as per HPI, Reports no additional gastrointestinal complaints and Denies dysphagia Genitourinary: Reports as per HPI Musculoskeletal: Reports no additional musculoskeletal complaints and Reports as per HPI Skin/Breast: Reports system reviewed and no additional complaints, except as docu Reports system reviewed and no additional complaints, except as documented and Reports as per HPI Psychiatric: Reports no additional psychiatric complaints and Reports as per HPI Endocrine: Reports no additional endocrine complaints, Reports as per HPI and Denies palpitations Hematologic/Lymphatic: Reports no additional hematologic/lymphatic complaints and Reports as per HPI Allergic/Immunologic: Reports no additional allergic/immunologic complaints and Reports as per HPI Physical Exam Vital Signs: Vital Signs: Last Vital Signs Temp 97.2 F 10/28/21 11:04 Pulse 95 10/28/21 11:04 Resp 18 10/28/21 11:04 BP 153/83 H 10/28/21 11:04 Pulse Ox 98 10/28/21 11:04 O2 Del Method 10/28/21 11:04 O2 Flow Rate 4 10/28/21 11:04 Oxygen Flow Rate 5 10/25/21 12:00 BMI result Body Mass Index 28.7 Const: Other: General? awake alert x3,in no acute distress. Neck? supple no JVD. CVS? regular rate rhythm, Respiratory lungs? bibasilar crackles, no respiratory distress, no wheeze, no rhonchi. Gastrointestinal abdomen soft, nontender, bowel sounds audible, no guarding , no rigidity. Extremities no? edema. 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 Dispo: hopefully switch to PO prednisone tomorrow if stable and will f/u as outpt Time Spent With Patient Time: Total time spent is greater than 50% in coordination of care (as documented) at patient's floor/unit and/or counseling patient: Progress Note: Quality Stroke Does the patient have a stroke diagnosis?: No
--- NOTE | 2021-10-28 13:03 | HO.PM.IMPN ---
Subjective Subjective Date of Service: 10/28/21 Interval History: patient feeling better this morning less shortness of breath and cough no other acute overnight issues ambulated with less shortness of breath. Denies chest pain, no palpitations, no fever, no chills. Review of Systems Review of Systems: Yes all other systems are reviewed and are negative Physical Exam Vital Signs: Vital Signs: Last Vital Signs Temp 97.2 F 10/28/21 11:04 Pulse 95 10/28/21 11:04 Resp 18 10/28/21 11:04 BP 153/83 H 10/28/21 11:04 Pulse Ox 98 10/28/21 11:04 O2 Del Method 10/28/21 11:04 O2 Flow Rate 4 10/28/21 11:04 Oxygen Flow Rate 5 10/25/21 12:00 BMI result Body Mass Index 28.7 Const: Other: General? awake alert x3,in no acute distress. Neck? supple no JVD. CVS? regular rate rhythm, Respiratory lungs? clear to auscultation, no respiratory distress, no wheeze, no rhonchi. Gastrointestinal abdomen soft, nontender, bowel sounds audible, no guarding , no rigidity. Extremities no? edema. Neuro nonfocal Skin no rash psych appropriate affect Objective Data Active Medications Acetaminophen (Acetaminophen 325 Mg Tablet) 650 mg PO Q6H PRN PRN Reason: Pain, Mild (Pain Scale 1-3) Cyanocobalamin (Cyanocobalamin (Vitamin B-12) 1,000 Mcg Tablet) 1,000 mcg PO DAILY [facility] Last Admin: 10/28/21 08:06 Dose: 1,000 mcg Documented By: DONELL Dextrose (Dextrose 50 % 25 Gm/50 Ml Syringe) 25 gm IVPUSH Q15M PRN; Protocol PRN Reason: per Hypoglycemia Standing Ord. Furosemide (Furosemide 20 Mg Tablet) 20 mg PO DAILY [facility]; Protocol Last Admin: 10/28/21 08:05 Dose: 20 mg Documented By: DONELL Glipizide (Glipizide 10 Mg Tablet) 10 mg PO DAILY [facility] Last Admin: 10/28/21 08:05 Dose: 10 mg Documented By: DONELL Glucose (Glucose Gel 15 Gm Gel..Gram.) 15 gm PO Q15M PRN; Protocol PRN Reason: per Hypoglycemia Standing Ord. Guaifenesin/Dextromethorphan (Guaifenesin Dm 100/10/5 Ml 5 Ml Syrup) 10 ml PO Q6H PRN PRN Reason: Cough Ceftriaxone Sodium 1 gm/ (Sodium Chloride) 50 mls @ 100 mls/hr IV Q24H [facility] Last Infusion: 10/28/21 12:36 Dose: 0 mls/hr Documented By: DONELL Insulin Human Lispro (Insulin Lispro 100 Unit/Ml 3 Ml Vial) 0 unit SUBCUT QIDACHS [facility]; Protocol Last Admin: 10/28/21 11:48 Dose: 10 unit Documented By: DONELL Losartan Potassium (Losartan Potassium 50 Mg Tablet) 50 mg PO DAILY [facility]; Protocol Last Admin: 10/28/21 08:06 Dose: 50 mg Documented By: DONELL Methylprednisolone Sodium Succinate (Methylprednisolone Sod Succ 125 Mg/2 Ml Vial) 60 mg IVPUSH Q8H [facility] Last Admin: 10/28/21 08:07 Dose: 60 mg Documented By: DONELL Ondansetron HCl (Ondansetron Hcl 4 Mg/2 Ml Vial) 4 mg IVPUSH Q8H PRN PRN Reason: Nausea and Vomiting Pharmacy Consult (Consult Rx Perform Med Rec) 1 each MISCELLANE ONCE PRN PRN Reason: Consult order Sodium Chloride (0.9 % Sodium Chloride Flush 3 Ml Syringe) 3 ml IVFLUSH QSHIFT [facility] Last Admin: 10/28/21 08:10 Dose: 3 ml Documented By: DONELL Vitamin D (Cholecalciferol (Vitamin D3) 25 Mcg Tablet) 50 mcg PO DAILY [facility] Last Admin: 10/28/21 08:06 Dose: 50 mcg Documented By: DONELL Labs CBC & Chem 7: 10/25/21 10:55 10/26/21 04:35 Labs: Laboratory Results - last 24 hr 10/26/21 10/26/21 10/27/21 15:28 15:28 16:26 POC Glucose 129 H IgE 10 Cycl Citrul Peptide IgG <16 10/27/21 10/28/21 10/28/21 21:07 07:26 11:08 POC Glucose 346 H 273 H 372 H* IgE Cycl Citrul Peptide IgG Microbiology Microbiology Results: Microbiology 10/25/21 17:38 Urine Culture - Final Urine clean catch - Urine gross top Escherichia coli Strep agalactiae (Grp B) 10/25/21 10:55 Blood Culture - Preliminary Blood - Venous No growth after 48 hours. 10/25/21 10:55 Blood Culture - Preliminary Blood - Venous No growth after 48 hours. Assessment and Plan (1) Acute diastolic heart failure: Status: Acute (2) Hypoxia: Status: Acute (3) Dyspnea: Status: Acute (4) Lung cancer: Status: Acute Plan 76-year-old female patient with past medical history significant for diabetes mellitus type 2, cholelithiasis, left carotid artery aneurysm, history of lung cancer status post lobectomy in 2019 presented to [facility] with gradually worsening shortness of breath and dry cough worse with exertion for 1 week duration associated with orthopnea and brief episode of chest discomfort yesterday that resolved by itself, with no associated fever chills patient noted to have elevated BNP and CT chest showing pulmonary edema patient will be admitted to telemetry continued monitoring and treatment. ?Dyspnea on exertion Feeling better this morning, less shortness of breath, symptoms improved likely due to steroids likely related to mild acute diastolic congestive heart failure, interstitial lung disease with CT chest showing worsening ground-glass opacities and reticular changes echocardiogram showed mild diastolic dysfunction grade 1, moderate pulmonary hypertension, EF 65% and moderately increased left ventricular wall thickness on Lasix 20 mg daily continue IV Solu-Medrol for 1 more day and transition to by mouth prednisone at a.m. workup for connective tissue disease / vasculitis pending continue to wean oxygen and obtain home O2 eval by a prior to discharge ? Hypertension not on home medication started on losartan 50 mg will increase dose of BP remains elevated E coli UTI started on IV ceftriaxone will transition to by mouth Ceftin for 5 day treatment upon discharge. ?abnormal EKG noted to have T-wave inversion in anterior leads , repeat EKG remains unchanged echocardiogram showed no wall motion abnormality, no further workup warranted. ?acute hypoxic respiratory failure due to above continue oxygen therapy patient not on home O2 gradually wean oxygen follow clinical course ?diabetes mellitus type 2 stable blood sugars,hold metformin continue glimepiride placed on insulin sliding scale and diabetic diet ?history of lung cancer status post lobectomy in [address] Soriano as outpatient recently evaluated and noted to have no recurrence of disease vitamin B12/vitamin-D deficiency continue supplements ?code status full code ?DVT prophylaxis with Lovenox ?patient will need continued inpatient hospitalization due to persistent hypoxia and shortness of breath on iv steroids ,workup in progress Quality Stroke Does the patient have a stroke diagnosis?: No VTE Prior VTE?: No VTE Risk Level:: Medical - moderate - high VTE Device Contraindication: Treatment Not Indicated VTE Drug Contraindication: N/A - Med Ordered
[2021-10-28 13:32] LABS: Anti Nuclear Antibody Screen NEGATIVE (NEGATIVE)
[2021-10-28 16:03] LABS: Glucose, Whole Blood 355 mg/dL (60-115)
--- NOTE | 2021-10-28 17:09 | PC.NURSE ---
Pt A+Ox4, ambulates independently in room. 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 1130 POC 372, MD notified, 10units sliding scale given per MAR. POC at [id number] [id number], notified, 10 units given per MAR. MD adjusted sliding scale, an additional 2 units given as unscheduled dose per MD orders. Pt educated and verbalized understanding. Call hernandez within reach, safety precautions taken.
[2021-10-28 20:06] LABS: Glucose, Whole Blood 262 mg/dL (60-115)
[2021-10-29] MEDS: 0.9 % Sodium Chloride Flush 3 ML SYRINGE IVFLUSH ×2 (00:48→07:54)
[2021-10-29] MEDS: methylPREDNISolone Sod Succ 125 MG/2 ML VIAL 60 MG IVPUSH ×2 (00:48→07:54)
[2021-10-29 03:39] VITALS: BP 153/82; PULSE 76; RESP 15; TEMP 36.2; O2SAT 94
[2021-10-29 07:16] VITALS: BP 144/77; PULSE 70; RESP 18; TEMP 36.2; O2SAT 97
[2021-10-29 07:24] LABS: Glucose, Whole Blood 310 mg/dL (60-115)
[2021-10-29] MEDS: Furosemide 20 MG TABLET PO (07:53)
[2021-10-29] MEDS: Cyanocobalamin (Vitamin B-12) 1,000 MCG TABLET 1000 MCG PO (07:53)
[2021-10-29] MEDS: Insulin Lispro 100 UNIT/ML 3 ML VIAL SUBCUT ×2 (07:53→11:34)
[2021-10-29] MEDS: Losartan Potassium 50 MG TABLET PO (07:53)
[2021-10-29] MEDS: Cholecalciferol (Vitamin D3) 25 MCG TABLET 50 MCG PO (07:53)
[2021-10-29] MEDS: glipiZIDE 10 MG TABLET PO (07:54)
--- NOTE | 2021-10-29 08:55 | MHC.CM.PN ---
Addendum entered by Chayo Gaspar 10/29/21 13:37: Patient qualifies for home oxygen. She is discharged today to home with new O2. [facility] will provide home services. [facility] will provide Oxygen and supplies. Patient will arrange for transportation. Original Note: Met with patient to review discharge plan. Patient will have a Home O2 eval today. 3-4L is the goal. Homecare preferences obtained, referral sent to [facility]. DP home with [facility], family will provide transport home.
--- NOTE | 2021-10-29 09:38 | P.PNPL_ITS ---
Subjective Subjective Date of Service: 10/29/21 Interval history: The patient was seen on exam. She is feeling better. She is doing 3 L of oxygen. Slowly going down. She is continue on the Solu-Medrol. Has been having high sugars. I did review her chest x-ray today and I did compared to her initial x-ray. She continues to have slow improvement of the airspace disease. On examination she is moving better air she still has some fine crackles at the bases. Her blood workup all has been negative for any inflammatory conditions or allergic reactions. Still awaiting the hypersen sitivity panel. The etiology still unclear although it may be a idiopathic interstitial process. Objective Data Labs CBC & Chem 7: 10/25/21 10:55 10/26/21 04:35 Labs: Laboratory Results - last 24 hr 10/26/21 10/28/21 10/28/21 15:28 11:08 16:00 POC Glucose 372 H* 355 H* RUBA Screen NEGATIVE RUBA Titer TNP RUBA Titer 2 TNP RUBA Titer 3 TNP RUBA Pattern TNP RUBA Pattern 2 TNP RUBA Pattern 3 TNP 10/28/21 10/29/21 19:58 07:18 POC Glucose 262 H 310 H RUBA Screen RUBA Titer RUBA Titer 2 RUBA Titer 3 RUBA Pattern RUBA Pattern 2 RUBA Pattern 3 Microbiology Microbiology Results: Microbiology 10/25/21 17:38 Urine clean catch - Urine gross top Urine Culture - Final Escherichia coli Strep agalactiae (Grp B) 10/25/21 10:55 Blood - Venous Blood Culture - Preliminary No growth after 48 hours. 10/25/21 10:55 Blood - Venous Blood Culture - Preliminary No growth after 48 hours. Review of Systems Review of Systems Yes all other systems are reviewed and are negative Constitutional: Reports as per HPI and Denies fever(s) Eyes: Reports as per HPI Reports as per HPI and Denies dysphagia Cardiovascular: Reports as per HPI, Denies acrocyanosis, Denies cool extremities, Denies chest pain, Denies leg edema, Denies lightheadedness, Denies palpitations and Reports dyspnea Respiratory: Reports as per HPI, Reports no additional respiratory complaints and Reports dyspnea Gastrointestinal: Reports as per HPI, Reports no additional gastrointestinal complaints and Denies dysphagia Genitourinary: Reports as per HPI Musculoskeletal: Reports no additional musculoskeletal complaints and Reports as per HPI Skin/Breast: Reports system reviewed and no additional complaints, except as docu Reports system reviewed and no additional complaints, except as documented and Reports as per HPI Psychiatric: Reports no additional psychiatric complaints and Reports as per HPI Endocrine: Reports no additional endocrine complaints, Reports as per HPI and Denies palpitations Hematologic/Lymphatic: Reports no additional hematologic/lymphatic complaints and Reports as per HPI Allergic/Immunologic: Reports no additional allergic/immunologic complaints and Reports as per HPI Physical Exam Vital Signs: Vital Signs: Last Vital Signs Temp 97.1 F 10/29/21 07:16 Pulse 70 10/29/21 07:16 Resp 18 10/29/21 07:16 BP 144/77 H 10/29/21 07:16 Pulse Ox 97 10/29/21 07:16 O2 Del Method 10/29/21 07:16 O2 Flow Rate 3 10/29/21 07:16 Oxygen Flow Rate 5 10/25/21 12:00 BMI result Body Mass Index 28.7 Const: Other: General? awake alert x3,in no acute distress. Neck? supple no JVD. CVS? regular rate rhythm, Respiratory lungs? bibasilar crackles, no respiratory distress, no wheeze, no rhonchi. Gastrointestinal abdomen soft, nontender, bowel sounds audible, no guarding , no rigidity. Extremities no? edema. Neuro nonfocal Skin no rash psych appropriate affect Procedures Date of Service Date of Service: 10/29/21 Assessment and Plan Assessment and plan (1) Pneumonitis: Status: Acute (2) Acute respiratory failure: Status: Acute (3) Acute diastolic heart failure: Status: Acute (4) Pulmonary hypertension: Status: Acute (5) Lung cancer: Problem details: (WILLIAMS Squamous cell carcinoma - stage 1 - s/p WILLIAMS lobectomy 09/2018) Status: Acute Plan Start on PO prednisone 40mg with taper Continue oxygen supplementation to maintain a pulse ox above 90% will need a walking oximetry Diuresis as tolerated Awaiting blood work Holding off on biopsies at this time. Dispo: Home on oxygen, VNA, will set up outpt pulmonary Time Spent With Patient Time: Total time spent is greater than 50% in coordination of care (as documented) at patient's floor/unit and/or counseling patient: Progress Note: Quality Stroke Does the patient have a stroke diagnosis?: No
[2021-10-29 10:56] VITALS: BP 142/69; PULSE 88; RESP 20; TEMP 36.3; O2SAT 92
[2021-10-29 11:15] LABS: Glucose, Whole Blood 339 mg/dL (60-115)
[2021-10-29 11:35] VITALS: PULSE 101; PULSE 92; PULSE 96; PULSE 97; PULSE 98; O2SAT 81; O2SAT 84; O2SAT 87; O2SAT 88; O2SAT 92
[2021-10-29] MEDS: cefTRIAXone sodium 1 GM in 0.9 % Sodium Chloride 50 ML IV (11:37)
--- NOTE | 2021-10-29 13:21 | P.DS_ITS ---
DS: Providers Provider Date of Service: 10/29/21 Date of admission: 10/25/21 16:40 Primary care physician: Rigoberto Ortiz MD Consults: 10/26/21 09:09 Consult to Cardiology Routine Consulting Provider: Joey Power Reason for consultation: chf Has provider been notified: No 10/26/21 11:16 Consult to Pulmonology Routine Consulting Provider: Vikram Parks Reason for consultation: sob/lung ca Has provider been notified: No DS: Diagnosis Discharge Diagnosis (1) Pneumonitis: Status: Acute (2) Acute respiratory failure: Status: Acute (3) Acute diastolic heart failure: Status: Acute (4) Pulmonary hypertension: Status: Acute (5) Lung cancer: Status: Acute DS: Summary Hospital Course Hospital Course: history of presenting illness Date of Service: 10/25/21 Attending physician on admission: Jazmine Jensen Chief Complaint:? shortness of breath with exertion ?this is a 76-year-old female patient with past medical history significant for lung cancer diagnosed in 2018, is status post left upper lobe wedge resection and mediastinal lymphandectomy in September of [address] Holli Soriano hand recently seen? by him on 10/15/2021 and felt patient has no evidence of recurrence or new disease as per CT chest from October 11 there was no lymphadenopathy and no pleural effusion noted, however patient presented to [facility] today with symptoms of shortness of breath associated with dry cough worse with exertion of 1 week duration associated with orthopnea, PND patient denies bilateral leg swelling yesterday patient had a brief episode of chest pressure but resolved by itself since as shortness of breath was gradually progressing she came to the emergency room and was noted to have significant hypoxia with oxygenation dropping to 60s with exertion, chest x-ray showed scattered bilateral ground-glass opacities and no effusion, a CTA chest showed left upper lobe lobectomy with associated shift of the mediastinum towards the left there was extensive diffuse bilateral interstitial prominence with Sarwat B lines and superimposed ground-glass lung parenchyma Clayton disease worse compared to the recent CT chest there was also small bilateral effusion seen right greater than the left there was mediastinal and bilateral hilar adenopathy? patient in the emergency room treated with IV Lasix and IV Solu Medrol and now being admitted to [facility] with acute hypoxic respiratory failure likely due to pulmonary edema with elevated BNP of 360 patient denies prior history of heart failure, no history of coronary artery disease, EKG showing new T-wave inversion V2 to V4, normal troponin 12.9 hospital course 76-year-old female patient with past medical history significant for diabetes mellitus type 2, cholelithiasis, left carotid artery aneurysm, history of lung cancer status post lobectomy in 2019 presented to [facility] with gradually worsening shortness of breath and dry cough worse with exertion for 1 week duration associated with orthopnea and brief episode of chest discomfort yesterday that resolved by itself, with no associated fever chills patient noted to have elevated BNP and CT chest showing pulmonary edema patient will be admitted to telemetry continued monitoring and treatment. ?acute hypoxic respiratory failure presented with shortness of breath worse on exertion, CT chest showed multiple abnormalities with worsening ground-glass opacities reticular changes, with possibility of mild congestion patient admitted to medical floor with a diagnosis of mild acute diastolic congestive heart failure, pneumonitis treated with IV Lasix as well as steroids patient responded well to above treatment,?echocardiogram showed mild diastolic dysfunction grade 1, moderate pulmonary hypertension, EF 65% and moderately increased left ventricular wall thickness likely due to uncontrolled blood pressure, since patient is clinically stable she is being discharged home on Lasix 20 mg daily, tapering dose of prednisone she was evaluated by Dr. Parks from pulmonology as well as Dr. Power from Cardiology they both agree with above treatment patient is recommended to have outpatient follow-up with Dr. Parks, workup for connective tissue disease and vasculitis pending, Patient had a home O2 eval and need 2 L of oxygen at rest and 2-4 L of oxygen with activity patient is being discharged with VNA services ?? ?Hypertension? not on home medication started on losartan 50 mg recommend to follow BP closely E coli UTI treated with IV ceftriaxone and now being discharged home on Ceftin for total 5 day treatment ?abnormal EKG noted to have T-wave inversion in anterior leads , repeat EKG remains unchanged echocardiogram showed no wall motion abnormality, no further workup warranted. ?diabetes mellitus type 2? noted to have elevated blood sugars likely due to steroids recommended to resume home medication and to follow diabetic diet ?history of lung cancer status post lobectomy in [address] Soriano as outpatient recently evaluated and noted to have no recurrence of disease. ?vitamin B12/vitamin-D deficiency continue supplements Time Spent with Patient Time attestation: Total time spent providing and/or coordinating discharge services: Discharge coordination time: Greater than 30 minutes Quality: Safe Use of Opioids Does Pt have an Active Cancer Diagnosis on the Problem List?: No Quality: Stroke Does the patient have a stroke diagnosis?: No Physical Exam Vital Signs: Vital Signs: Last Vital Signs Temp 97.3 F 10/29/21 10:56 Pulse 88 10/29/21 10:56 Resp 20 10/29/21 10:56 BP 142/69 H 10/29/21 10:56 Pulse Ox 92 10/29/21 10:56 O2 Del Method 10/29/21 10:56 O2 Flow Rate 2 10/29/21 10:56 Oxygen Flow Rate 5 10/25/21 12:00 BMI result Body Mass Index 28.7 Const: Other: General? awake alert x3,in no acute distress. Neck? supple no JVD. CVS? regular rate rhythm, Respiratory lungs? clear to auscultation, no respiratory distress, no wheeze, no rhonchi. Gastrointestinal abdomen soft, nontender, bowel sounds audible, no guarding , no rigidity. Extremities no? edema. Neuro nonfocal Skin no rash psych appropriate affect DS: Data Data Completed and Pending Labs on day of discharge: Laboratory Results - last 24 hr 10/26/21 10/28/21 10/28/21 15:28 16:00 19:58 POC Glucose 355 H* 262 H RUBA Screen NEGATIVE RUBA Titer TNP RUBA Titer 2 TNP RUBA Titer 3 TNP RUBA Pattern TNP RUBA Pattern 2 TNP RUBA Pattern 3 TNP 10/29/21 10/29/21 07:18 10:58 POC Glucose 310 H 339 H RUBA Screen RUBA Titer RUBA Titer 2 RUBA Titer 3 RUBA Pattern RUBA Pattern 2 RUBA Pattern 3 Preliminary micro results at discharge 10/25/21 10:55 Blood Culture - Preliminary Blood - Venous No growth after 48 hours. 10/25/21 10:55 Blood Culture - Preliminary Blood - Venous No growth after 48 hours. Discharge Plan Discharge Patient Disposition: Home Health Service Discharge Diagnosis: acute hypoxic respiratory failure acute diastolic congestive heart failure pneumonitis E coli UTI stage I lung cancer Referrals: Rigoberto Ortiz MD [Primary Care Provider] - 1 Week [facility] [Physician] - 1 Week Discharge Medications: New dextromethorphan-guaifenesin 10-100 mg/5 mL Syrup 10 ml PO Q6H PRN (Reason: Cough) Qty: 237 0RF furosemide 20 mg Tablet 20 mg PO DAILY Qty: 30 0RF Protocol: Hold for SBP< HOLD for SBP < : 90 cefuroxime axetil 250 mg tablet 250 mg PO BID Qty: 6 0RF losartan 50 mg Tablet 50 mg PO DAILY Qty: 30 0RF Protocol: Hold for SBP< HOLD for SBP < : 90 prednisone 10 mg tablet See Taper PO DAILY Qty: 30 0RF Taper: Prednisone 40 mg daily for 3 Days and 0 Hour 30 mg daily for 3 Days and 0 Hour 20 mg daily for 3 Days and 0 Hour 10 mg daily for 3 Days and 0 Hour Continued glimepiride 4 mg tablet 4 mg PO DAILY 90 Days Qty: 90 2RF metformin 1,000 mg tablet 1,000 mg PO BID Qty: 180 3RF cyanocobalamin (vitamin B-12) 1,000 mcg capsule 1,000 mcg PO DAILY 90 Days Qty: 90 3RF cholecalciferol (vitamin D3) 50 mcg (2,000 unit) capsule 50 mcg PO DAILY 90 Days Qty: 90 3RF Discharge Orders: Discharge Order (Routine); Ordered 10/29/21 Ordered By: Jazmine Jensen Diet: Diabetic diet Activity on Discharge: As tolerated Stand Alone Forms: Patient Portal Discharge page Care Plan Goals: hypertension is started on home Cozaar 50 mg daily follow BP and adjust dosage mild diastolic heart failure resolved take Lasix 20 mg daily UTI take Ceftin as directed pneumonitis on prednisone tapering diabetes elevated blood sugars due to steroids follow diabetic diet continue home medication hypoxia use 2 L of oxygen at rest and 2-4 L with activity. Health Concerns: hypertension/diabetes /lung CA continue all home medications Plan of Treatment: outpatient follow-up with pulmonology Dr. Parks call to make an appointment in 1-2 weeks, outpatient follow-up with primary care physician Assessment: as above
--- NOTE | 2021-10-29 14:44 | P.F2F_ITS ---
Service Date Service Date: 10/29/21 Encounter Date of encounter: 10/29/21 Reasons for Services Signs and symptoms assessed: acute respiratory failure Reason for prison: diabetic teaching and medication management Homebound: Leaving the home is medically contraindicated at this time without the asist of a device and/or another person due th the listed conditions above and below. Reason homebound: shortness of breath with minimal effort and weakness related to hospital stay Certification: Based on the above findings, I certify that this patient is confined to the home and needs intermittent prison care, physical therapy and/or speech therapy, or continues to need occupational therapy. The patient is under my care, and I have initiated the establishment of the plan of care. The patient will be followed by a physician who will periodically review the plan of care.
--- NOTE | 2021-10-29 16:40 | PC.NURSE ---
Pt A+Ox4, no c/o pain, ambulates independently in the room. Home O2 eval completed by RT. discharge orders in and education given to pt. Pt verbalized understanding. to pick her up, brought down to the main entrance by hospital staff.
[2021-10-30 01:48] LABS: Strep Pneumo Ag urine Not Detected (Not Detected)
[2021-10-30 04:22] LABS: Legionella Ag Urine Not Detected (Not Detected)
[2021-11-03 15:21] LABS: Asperg fumigatus Precip Abs NEGATIVE (NEGATIVE); Micropoly faeni Abs NEGATIVE (NEGATIVE); Pigeon serum Abs NEGATIVE (NEGATIVE); Saccharo pora viridis Abs NEGATIVE (NEGATIVE); Thermo candidus Abs NEGATIVE (NEGATIVE); Thermoa vulgaris #1 NEGATIVE (NEGATIVE)
== END 2021-10-29 04:45 | disposition home health service (06) | DRG 193 ==
LOC: HO.ED 15:46 → HO.EDOVER 17:03 → HO.IMC 10-26 08:38
PROVIDERS: Hospitalist; Admitting Provider Hospitalist; Emergency Provider Emergency Medicine; PCP Internal Medicine; Visit Provider Hospitalist
DX: J18.9 Pneumonia, unspecified organism (principal); I50.31 Acute diastolic (congestive) heart failure; J96.01 Acute respiratory failure with hypoxia; N39.0 Urinary tract infection, site not specified; I11.0 Hypertensive heart disease with heart failure; E55.9 Vitamin D deficiency, unspecified; E53.8 Deficiency of other specified B group vitamins; I27.20 Pulmonary hypertension, unspecified; E11.65 Type 2 diabetes mellitus with hyperglycemia; B96.20 Unspecified Escherichia coli [E. coli] as the cause of diseases classified elsewhere; Z20.822 Contact with and (suspected) exposure to COVID-19; Z85.118 Personal history of other malignant neoplasm of bronchus and lung; Z90.2 Acquired absence of lung [part of]; Z87.891 Personal history of nicotine dependence; Z79.84 Long term (current) use of oral hypoglycemic drugs; Z79.899 Other long term (current) drug therapy
CPT/HCPCS: 0241U; 36415; 71045; 71046; 71275; 80048; 80076; 81001; 82785; 82947; 83605; 83690; 83880; 84484; 85025; 85379; 85652; 86021; 86038; 86039; 86200; 86331; 86606; 86609; 87040; 87086; 87088; 87147; 87186; 87449; 87633; 87899; 93005; 93306; 93356; 99285; J0696; J1940; J2930; Q9957; Q9967

== ENCOUNTER → 2021-11-08 14:17 | Outpatient (BNVA) | payer MEDICARE, OTHER, SELFPAY | PROVIDERS: PCP Internal Medicine; Visit Provider Internal Medicine | DX: J44.9 Chronic obstructive pulmonary disease, unspecified (principal); I27.20 Pulmonary hypertension, unspecified; J96.00 Acute respiratory failure, unspecified whether with hypoxia or hypercapnia; Z85.118 Personal history of other malignant neoplasm of bronchus and lung | CPT/HCPCS: 99212 ==

== ENCOUNTER 2021-12-03 11:01 | Outpatient (REF) | payer MEDICARE, OTHER, SELFPAY ==
--- NOTE | 2021-12-03 15:01 | PFT_ITS ---
Forced vital capacity 64%, FEV1 is 76%, and [id number] , MVV 85%. Post bronchodilator therapy, there is no change. Total lung capacity is 60%. Residual volume 52%. Diffusion capacity is 20%. CONCLUSION: These findings are consistent with moderately severe restrictive pulmonary disorder. No evidence of obstructive airway disorder. No response to bronchodilator therapy. Diffusion capacity is markedly decreased. Compared to the results of PFT on 09/10/2018, there is increase in the restrictive pattern. Clinical correlation is recommended. Ervin Guillen MD MSB/MODL / [phone]
== END 2021-12-03 11:02 | disposition home or self-care (01) ==
LOC: HO.RESP 11:01
PROVIDERS: PCP Internal Medicine; Visit Provider Internal Medicine
DX: J44.9 Chronic obstructive pulmonary disease, unspecified (principal)
CPT/HCPCS: 94060; 94727; 94729

== ENCOUNTER → 2021-12-13 14:27 | Outpatient (BNVA) | payer MEDICARE, OTHER, SELFPAY | PROVIDERS: PCP Internal Medicine; Visit Provider Internal Medicine | DX: I27.20 Pulmonary hypertension, unspecified (principal); J96.00 Acute respiratory failure, unspecified whether with hypoxia or hypercapnia; I50.9 Heart failure, unspecified; Z85.118 Personal history of other malignant neoplasm of bronchus and lung | CPT/HCPCS: 99212 ==

== ENCOUNTER → 2021-12-20 15:39 | Outpatient (BNVA) | payer MEDICARE, OTHER, SELFPAY | PROVIDERS: PCP Internal Medicine; Referring Provider Internal Medicine; Visit Provider Internal Medicine | DX: I50.32 Chronic diastolic (congestive) heart failure (principal) | CPT/HCPCS: 99212 ==

== ENCOUNTER → 2022-01-11 16:03 | Outpatient (BNVA) | payer MEDICARE, OTHER, SELFPAY | PROVIDERS: PCP Internal Medicine; Visit Provider Internal Medicine | DX: J44.9 Chronic obstructive pulmonary disease, unspecified (principal); I27.20 Pulmonary hypertension, unspecified; R09.02 Hypoxemia; I50.9 Heart failure, unspecified; Z85.118 Personal history of other malignant neoplasm of bronchus and lung | CPT/HCPCS: 99212 ==

== ENCOUNTER → 2022-07-21 14:53 | Outpatient (REF) | payer MEDICARE, OTHER, SELFPAY ==
--- NOTE | 2022-07-21 15:00 | CA_ITS ---
Transthoracic Echocardiogram Patient (Last, First, Middle): Jacey Cardoza M Gender: Female Date of : 1945 Age: 77 Procedure Date: 07/21/2022 Procedure Type: Transthoracic Echocardiogram Location: [place] Height: 172.72 cm Weight: 72.58 kg BSA: 1.86 m2 Heart Rate: bpm BP: 118 / 80 mmHg Remote Sensing Technologist: DELICIA Referring MD: Valdez Coleman MD Ammunition Specialist: Albaro Clark MD Symptoms: HTN Study Quality: Adequate ECG Rhythm: Sinus Conclusions: - 1. Hyperdynamic LV systolic function with LVEF of greater than 70% with impaired relaxation filling pattern 2. Mildly dilated right-sided chambers with borderline RV systolic function 3. Normal cardiac valvular Dopplers next 4. Severely elevated right ventricular systolic pressure 5. Trivial pericardial effusion Findings Left Ventricle Normal left ventricular cavity size. There is mildly increased left ventricular wall thickness. The left ventricular systolic function is hyperdynamic. The visually estimated ejection fraction is >70%. There is a flattened septum in systole consistent with right ventricular pressure overload. Spectral Doppler is indicative of an impaired relaxation filling pattern. E/E prime ratio is between 8 and 15 consistent with indeterminate filling pressures. Peak GLS is -15.3%, which is reduced. Right Ventricle Mildly increased right ventricular cavity size. There is borderline right ventricular systolic function. Atria The left atrium is normal in size. There is lipomatous hypertrophy of the interatrial septum. There is no evidence of interatrial shunt. The right atrium is mildly dilated. Aortic Valve There is mild calcification of the aortic valve. There is no aortic valve stenosis. There is no aortic valve regurgitation. Mitral Valve There is mild anterior and posterior mitral leaflet thickening. There is mild mitral annular calcification. There is trace mitral valve regurgitation. There is no mitral valve stenosis. Pulmonic Valve The pulmonic valve is likely normal. There is trace to mild pulmonic valve regurgitation. Tricuspid Valve Normal tricuspid valve structure. There is mild tricuspid valve regurgitation. Normal right atrial pressure. Severe pulmonary hypertension is present. Great Vessels All visible segments of the aorta are normal in size. The pulmonary artery was not well visualized. Venous The inferior vena cava is mildly dilated and collapses greater than 50% with inspiration. Pericardium/Pleural There is a trivial circumferential pericardial effusion. Prior Study Comparison Changes noted compared to prior study dated: 06/04/2022. RV systolic pressure is further increased Measurements 2D Linear Measurements IVSd: 1.23 0.6-0.9/0.6-1.0 cm LVIDd: 3.81 3.9-5.3/4.2-5.9 cm LVIDd Index: 2.05 2.4-3.2/2.2-3.1 cm/m2 LVIDs: 2.09 2.0-3.6 cm LVPWd: 1.24 0.7-1.1 cm LA Diam: 2.80 2.7-3.8/3.0-4.0 cm LAIDs Index: 1.51 1.5-2.3 cm/m2 LV Mass: 200.06 67-162/88-224 g LV Mass Index: 107.56 43-95/49-115 g/m2 LVOT Diam: 2.00 3.0+(-)1.3 cm 2D Systolic Function EF 4C: 77.90 >55% EF 2C: 74.30 >55% EF BiP: 76.20 >55% Mitral Valve MV VTI: 0.33 MV Pk Mohsen: 1.83 MV Mn Mohsen: 0.95 MV Pk Grad: 13.00 MV Mn Grad: 4.00 MV Pk E: 0.69 MV PK A: 1.57 MV Decel Time: 178.00 E/A: 0.40 E'Lateral: 6.42 E'Medial: 7.07 E/E' Med: 9.70 E/E' Lat: 10.70 PHT: 52.00 MVA PHT: 4.23 MVA Continuity: 2.29 Decel [place]: 3.86 Aortic Valve AoV Pk Mohsen: 1.79 AoV Mn Mohsen: 1.38 AoV VTI: 0.36 AoV Pk Grad: 13.00 Aov Mn Grad: 8.00 ROSA Cont.VTI: 2.12 LVOT LVOT Pk Mohsen: 1.34 LVOT Mn Mohsen: 0.89 LVOT VTI: 0.24 LVOT Pk Grad: 7.00 LVOT Mn Grad: 4.00 LVOT Diam: 2.00 LVOT Area: 3.14 Diastolic Function MV Pk E: 0.69 MV Pk A: 1.57 E/A: 0.40 E'Medial: 7.07 E/E' Med: 9.70 E' Laterial: 6.42 E/E' Lat: 10.70 Right Ventricle TAPSE (mm): 17.40 TVS' Mohsen: 11.30 Tricuspid Valve TR Pk Mohsen: 4.04 TR Pk Grad: 65.00 RA Press: 3.00 RVSP: 68.00 Great Vessels Aorta Sinus of Valsalva: 3.42 2.0-3.[address] [place]: 2.83 1.7-3.4 cm Ao Asc: 3.40 2.1-3.4 cm Updated in Other Vendor System with Status of Final Albaro Clark MD electronically signed on 07/22/2022 4:00:31 PM with status of Final
== END ==
LOC: HO.CARD 14:53
PROVIDERS: PCP Internal Medicine; Visit Provider Internal Medicine Pulmonary Disease
DX: I27.20 Pulmonary hypertension, unspecified (principal)
CPT/HCPCS: 93306; 93356

== ENCOUNTER 2022-09-14 13:26 | Outpatient (AMB) | payer MEDICARE, OTHER, SELFPAY ==
[2022-09-14 13:41] VITALS: PULSE 97; O2SAT 86
--- NOTE | 2022-09-14 13:41 | MHC.PC.OV ---
Vital Signs 09/14/22 13:41 Height 5 ft 8 in BMI Reason not done Patient refused/unable Blood Pressure Location Lt brachial Position Sitting Pulse 97 Pulse Source Pulse Oximeter Pulse Oximetry (%) 86 L Oxygen Delivery Method Nasal Cannula Intake Visit Reasons: 6 weeks f/u Allergies No Known Allergies [No Known Allergies*] Allergy (Verified 09/14/22 13:41) Tobacco use date assessed: 06/02/22 Fall risk assessment: No Falls in past year Last assessed Fall Risk: 09/14/22 Dental Screening Dental Screen Date: 09/14/22 Did you have a dental visit in the last 12 months?: No Did you have a dental problem in the last 6 months where you did not have access to dental care?: No Was dental information given to patient?: No HPI 6 weeks f/u HPI Details 77-year-old female with diabetes mellitus congestive heart failure COPD interstitial lung disease last seen in 08/02/2022 coming in for follow-up. Last hemoglobin A1c in July was 10.9 review of the notes in 08/30/2022 was in the hospital for a mechanical fall sustaining left intertrochanteric femur all fracture underwent ORIF 08/12/2022. Review of the notes also received information about pulmonary function test studies showing restrictive pattern with severe reduction in diffusion capacity and a 6 minute distance walked severely impaired walking distance medial of 70% patient qualifies for supplemental oxygen with activity July 06 blood work shows BUN creatinine of 125 and 1.2 glucose 311 EGFR is 46 proBNP 2762 patient is presently wheelchair borne. BS now is good. patient also has L heel blister and bilateral swelling of the LE [facility] Medical History Adrenal adenoma Carotid aneurysm, left Cholelithiasis Congestive heart failure COPD (chronic obstructive pulmonary disease) H/O: lung cancer Hypercholesterolemia Hypertension Lung cancer (~2018) Pulmonary hypertension Type 2 diabetes mellitus with hyperglycemia Vitamin B12 deficiency Vitamin D deficiency Surgical History History of cataract surgery (~2019) History of lobectomy of lung (~2018) Family History Father No problems noted. Mother Stroke Social History Household Members: Family Housing: House Do you presently have visiting nurse or other home services: No Alcohol intake: never Patient Tobacco Use Status: Former Tobacco user Tobacco use type: Cigarette e-Cigarette/Vaping Use: Never Used Second Hand Smoke Exposure: No service: No Current occupational status: retired Cognitive needs: No Hearing needs: No Vision needs: Yes Questionnaire PHQ-9 Over the last 2 weeks, how often have you been bothered by any of the following problems? 1. Little interest or pleasure in doing things: not at all 2. Feeling down, depressed, or hopeless: not at all 3. Trouble falling or staying asleep, or sleeping too much: not at all 4. Feeling tired or having little energy: not at all 5. Poor appetite or overeating: not at all 6. Feeling bad about yourself - or that you are a failure or have let yourself or your family down: not at all 7. Trouble concentrating on things, such as reading the newspaper or watching television: not at all 8. Moving or speaking so slowly that other people could have noticed. Or the opposite - being so fidgety or restless that you have been moving around a lot more than usual: not at all 9. Thoughts that you would be better off or of hurting yourself in some way: not at all Total score: 0 Depression Screening Interpretation: Negative Source: Developed by Drs. Ozzy Flores, Huey Jordan and colleagues, with an educational edie from [employer]. Thrive Questionnaire Date Thrive assessed: 04/05/22 AUDIT C Alcohol Use Questionnaire (AUDIT-C) 1. How often do you have a drink containing alcohol?: Never 2. How many drinks containing alcohol do you have on a typical day when you are drinking?: 1 or 2 (0) 3. How often do you have six or more drinks on one occasion?: Never Total Score: 0 SOLITARIO-7 AMB Questionnaire SOLITARIO-7 Date SOLITARIO - 7 assessed: 06/02/22 Source: Developed by Drs. Ozzy Flores, Huey Jordan and colleagues, with an educational edei from [employer]. Physical exam (Primary Care) Vital Signs: Last Vital Signs Pulse 97 09/14/22 13:41 Pulse Ox 86 L 09/14/22 13:41 Oxygen Delivery Method Nasal Cannula 09/14/22 13:41 Tobacco/Smoking Status: Tobacco use Status Tobacco use date assessed 06/02/22 09/14/22 13:48 Patient Tobacco Use Status Former Tobacco user 09/14/22 13:48 Tobacco use type Cigarette 09/14/22 13:48 e-Cigarette/Vaping Use Never Used 09/14/22 13:48 PHQ-9: PHQ-9 Score PHQ-9: Total score 0 09/14/22 14:14 Depression Screening Interpretation: Negative Thrive Assessment: Date of Thrive Assessment Date Thrive assessed 04/05/22 09/14/22 13:48 Const General: alert; No acute distress Eyes Conjunctivae: conjunctivae normal Resp Auscultation: clear to auscultation bilaterally Cardio Rate: regular rate Rhythm: regular rhythm GI Inspection: Yes normal to inspection Extrem Other: Plus two edema both lower extremity had the Lovenox until 09/08/2022 but patient has not had any physical therapy. Left heel 3 x 2 in blister with weeping General: Yes edema Assessment and Plan Assessment & Plan (1) Closed left femoral fracture: Comment: ORIF 08/12/2022 Code(s): S72.92XA - Unspecified fracture of left femur, initial encounter for closed fracture Plan: Physical therapy requested for home (2) Interstitial lung disease: Code(s): J84.9 - Interstitial pulmonary disease, unspecified Plan: Continue to follow-up with Pulmonary, on supplemental oxygen (3) Chronic heart failure with preserved ejection fraction (HFpEF): Code(s): I50.32 - Chronic diastolic (congestive) heart failure Plan: Continue with the diuretic and will continue to monitor (4) Type 2 diabetes mellitus with hyperglycemia: Code(s): E11.65 - Type 2 diabetes mellitus with hyperglycemia Qualifiers: Diabetes mellitus long term care administrator insulin use: without long term care administrator use Qualified Code(s): E11.65 - Type 2 diabetes mellitus with hyperglycemia Plan: Decrease the amount of carbohydrate intake, pasta, bread, rice and potatoes are all sugar and that is aside from all the sweet stuff, remember that fruits are good but they are Sweet also. Presently on Lantus at 29 units once a day metformin a 1000 mg twice a day (5) H/O: lung cancer: Comment: Status post left upper lobectomy in 2019 for carcinoma of the lung, Luckily there has been no recurrence. Code(s): Z85.118 - Personal history of other malignant neoplasm of bronchus and lung (6) COPD (chronic obstructive pulmonary disease): Comment: Patient has past history of smoking. She has shortness of breath on exertion. Clinically I think she has chronic obstructive pulmonary disease. Pulmonary function test does not show any significant obstructive airway disorder. TX : Continue use of oxygen for hypoxemia. Does not need any bronchodilators or inhaled steroids. Code(s): J44.9 - Chronic obstructive pulmonary disease, unspecified Plan: Continue with oxygen present (7) Hypercholesterolemia: Code(s): E78.00 - Pure hypercholesterolemia, unspecified Plan: Avoid fried foods, chicken skin, eggs, butter margarine, pastries and meat. Be it pork or beef they have a lot of cholesterol LDL goal of less than 70 and triglyceride of less than 150 (8) Blister of left heel: Code(s): S90.822A - Blister (nonthermal), left foot, initial encounter Plan: Wound care referral done (9) Leg swelling: Comment: bilateral Code(s): M79.89 - Other specified soft tissue disorders Plan: Ultrasound stat the lower extremity check for DVT Orders: Orders PT Evaluation and Treatment Today S72.92XA - Unspecified fracture of left femur, initial encounter for closed fracture US venous duplex LE BI Today M79.89 - Other specified soft tissue disorders Referrals Wound Care Referral S90.822A - Blister (nonthermal), left foot, initial encounter Orthopedics Referral S72.92XA - Unspecified fracture of left femur, initial encounter for closed fracture Medications: New tramadol 50 mg PO DAILY 30 days PRN 30 tabs 2RF pain M17.9 - Osteoarthritis of knee, unspecified, S72.92XA - Unspecified fracture of left femur, initial encounter for closed fracture Coding Level of Care Code Est Pt Level 4 (15580) Diagnoses Closed left femoral fracture S72.92XA Interstitial lung disease J84.9 Chronic heart failure with preserved ejection fraction (HFpEF) I50.32 Type 2 diabetes mellitus with hyperglycemia E11.65 Diabetes mellitus correction insulin use: without long term care administrator use H/O: lung cancer Z85.118 COPD (chronic obstructive pulmonary disease) J44.9 Hypercholesterolemia E78.00 Blister of left heel S90.822A Leg swelling M79.89
== END 2022-09-14 14:59 | disposition home or self-care (01) ==
PROVIDERS: PCP Internal Medicine; Visit Provider Internal Medicine
DX: S72.92XA Unspecified fracture of left femur, initial encounter for closed fracture (principal); J84.9 Interstitial pulmonary disease, unspecified; I50.32 Chronic diastolic (congestive) heart failure; E11.65 Type 2 diabetes mellitus with hyperglycemia; Z85.118 Personal history of other malignant neoplasm of bronchus and lung; J44.9 Chronic obstructive pulmonary disease, unspecified; E78.00 Pure hypercholesterolemia, unspecified; S90.822A Blister (nonthermal), left foot, initial encounter; M79.89 Other specified soft tissue disorders
CPT/HCPCS: 99214

== ENCOUNTER 2022-09-14 15:43 | Outpatient (REF) | payer MEDICARE, OTHER, SELFPAY ==
--- NOTE | ~2022-09-14 | US_ITS ---
EXAMINATION: US VENOUS ULTRASOUND WITH DOPPLER LOWER EXTREMITY, BILATERAL CLINICAL INFORMATION: Evaluate for DVT COMPARISON: Bilateral lower extremity venous Doppler from 10/05/2018 TECHNIQUE: Ultrasound of the deep veins is performed from the hip to the calf with compression sonography and color and pulse Doppler assessment. Spectral analysis with color-flow imaging is performed. FINDINGS: RIGHT: There is normal venous compression and respiratory variation and augmented flow. The visualized common femoral vein, superficial femoral vein, profunda femoral vein, popliteal vein, and the trifurcation region shows no evidence of deep venous thrombosis. There is no significant popliteal fossa cyst. LEFT: There is normal venous compression and respiratory variation and augmented flow. The visualized common femoral vein, superficial femoral vein, profunda femoral vein, popliteal vein, and the trifurcation region shows no evidence of deep venous thrombosis. There is no significant popliteal fossa cyst. If the patient's symptoms persist, followup ultrasound in 5 days 7 days might be of value to exclude proximal propagation from a non-visualized calf vein. US/US venous duplex LE BI IMPRESSION: No DVT demonstrated in the bilateral lower extremity.
== END 2022-09-14 15:44 | disposition home or self-care (01) ==
LOC: HO.US 15:43
PROVIDERS: PCP Internal Medicine; Visit Provider Internal Medicine
DX: M79.89 Other specified soft tissue disorders (principal)
CPT/HCPCS: 93970

== ENCOUNTER 2022-09-26 13:52 | Outpatient (RCR) | payer MEDICARE, OTHER, SELFPAY | END 2022-09-29 13:07 | disposition home or self-care (01) | LOC: HO.PTCHIC 13:52 | PROVIDERS: PCP Internal Medicine; Visit Provider Physician Assistant Surgical | DX: S72.92XD Unspecified fracture of left femur, subsequent encounter for closed fracture with routine healing (principal) | CPT/HCPCS: 97110; 97162 ==

== ENCOUNTER 2022-09-28 08:48 | Outpatient (RCR) | payer MEDICARE, OTHER, SELFPAY | END 2023-01-05 17:00 | disposition home or self-care (01) | LOC: HO.WCC 08:48 | PROVIDERS: PCP Internal Medicine; Visit Provider Surgery | DX: E11.621 Type 2 diabetes mellitus with foot ulcer (principal); L97.422 Non-pressure chronic ulcer of left heel and midfoot with fat layer exposed; I10 Essential (primary) hypertension; Z79.4 Long term (current) use of insulin; Z79.84 Long term (current) use of oral hypoglycemic drugs; Z79.52 Long term (current) use of systemic steroids; Z79.899 Other long term (current) drug therapy; Z87.891 Personal history of nicotine dependence | CPT/HCPCS: 11042; 11045; 97597; 99212 ==

== ENCOUNTER 2023-01-11 13:56 | Outpatient (AMB) | payer MEDICARE, OTHER, SELFPAY ==
[2023-01-11 13:57] VITALS: BP 102/70; PULSE 90; O2SAT 86
--- NOTE | 2023-01-11 13:57 | MHC.PC.OV ---
Vital Signs 01/11/23 13:57 Height 5 ft 8 in BP 102/70 Blood Pressure Location Lt brachial Position Sitting Pulse 90 Pulse Source Pulse Oximeter Pulse Oximetry (%) 86 L Oxygen Delivery Method Nasal Cannula Intake Visit Reasons: discharge [facility] 08/15-09/04 Intake Note: Patient is here for hospital discharge follow up. Patient was discharged from [facility] due to a fall 08/15/22-09/04/22 Scale Model Maker Required: No Allergies No Known Allergies [No Known Allergies*] Allergy (Verified 01/11/23 14:17) Medication List - Last Reconciled 01/11/23 by AKIKO Rodriguez alendronate 70 mg PO QWEEK blood sugar diagnostic ([employer] No Coding strips) As directed check the BS BID blood-glucose meter ([employer] Autocode Meter kit) As directed calcium carbonate (Oyster Shell Calcium) 500 mg PO DAILY cholecalciferol (vitamin D3) 50 mcg PO DAILY 90 days compress.stocking,knee,reg,lrg As directed 20 30 mm HG cyanocobalamin (vitamin B-12) 1,000 mcg PO DAILY 90 days flash glucose scanning reader (ScaleMP Mary 2 Hardy) As directed flash glucose sensor (Loxysoft GroupStyle Mary 2 Sensor kit) As directed furosemide 60 mg PO DAILY insulin glargine (Lantus Solostar U-100 Insulin) 29 units (0.29 mL) subcut BEDTIME lancets ([employer] Lancets) As directed metformin 1,000 mg PO DAILY miscellaneous medical supply 1 ea miscellaneous QID nystatin 1 appl topical TID nystatin 1 appl topical BID Oxygen Home Use As directed 4L NC pen needle, diabetic (BD Ultra-Fine Shy Pen Needle) As directed prednisone 5 mg PO DAILY sildenafil (pulm.hypertension) 40 mg PO TID tramadol 50 mg PO DAILY PRN 30 days Tobacco use date assessed: 01/11/23 Fall risk assessment: 1 Fall in past year (08/2022) Last assessed Fall Risk: 01/11/23 Dental Screening Dental Screen Date: 01/11/23 HPI discharge [facility] 08/15-09/04 HPI Details Patient is a 77-year-old female who presents today to follow-up after [facility] discharge. Admission date 08/15/2022, discharge date 08/30/2022. Patient of Dr. Po. Per discharge summary: Patient is a 77-year-old female with a significant past medical history of restrictive lung disease on chronic prednisone, chronic hypoxic respiratory failure on 4 L of O2 at home, squamous cell lung cancer post resection of left upper lobe in 2018, type 2 diabetes mellitus, pulmonary arterial hypertension with right-sided heart failure who presented to [facility] after sustaining a fall at home. Patient was discovered to have a left intratrochanteric femur fracture and underwent surgical intervention on 08/12/22 after cardiology cleared patient. Patient was discharged to rehab. Lab studies 08/30/2022, potassium 4.4, sodium 142, BUN 21, creatinine 1.01, A1c 7.4, hemoglobin 10.8. Today, patient reports that she able to ambulate with a walker short distances. She was seen by [facility] 09/2022 and discharge patient from care per patient. Patient reports blood sugar this morning 111. She is followed by cellophane worker in [place] Dr. Coleman. Also patient has referral to see [facility] cardiology due to heart failure, will follow-up on this referral, patient was not seen yet. Patient was discharged recently from wound care due to left heel wound which is healed now per patient, patient has referral for physical therapy due to left leg fracture, will follow-up on this, she reports PT was held due to left heel wound. Patient denies shortness of breath or chest pain. On oxygen 4 L via nasal cannula continuously. [facility] Medical History Congestive heart failure H/O: lung cancer COPD (chronic obstructive pulmonary disease) Pulmonary hypertension Vitamin D deficiency Vitamin B12 deficiency Carotid aneurysm, left Cholelithiasis Adrenal adenoma Lung cancer (~2018) Hypercholesterolemia Hypertension Type 2 diabetes mellitus with hyperglycemia Surgical History History of cataract surgery (~2019) History of lobectomy of lung (~2018) Family History Father No problems noted. Mother Stroke Social History Household Members: Family Housing: House Do you presently have visiting nurse or other home services: No Alcohol intake: never Patient Tobacco Use Status: Former Tobacco user Tobacco use type: Cigarette e-Cigarette/Vaping Use: Never Used Second Hand Smoke Exposure: No service: No Current occupational status: retired Cognitive needs: No Hearing needs: No Vision needs: Yes Questionnaire Thrive Questionnaire Date Thrive assessed: 04/05/22 AUDIT C Alcohol Use Questionnaire (AUDIT-C) 1. How often do you have a drink containing alcohol?: Never 2. How many drinks containing alcohol do you have on a typical day when you are drinking?: 1 or 2 (0) 3. How often do you have six or more drinks on one occasion?: Never Total Score: 0 Score Reviewed/Action Taken: No SOLITARIO-7 AMB Questionnaire SOLITARIO-7 Date SOLITARIO - 7 assessed: 06/02/22 Source: Developed by Drs. Ozzy Flores, Annabelle Rajan, Huey Dominguez and colleagues, with an educational edie from [employer]. Review of Systems Const Denies body aches, Denies chills, Denies fever(s) and Denies headache(s) ENT Denies dizziness, Denies otalgia, Denies headache(s), Denies nasal discharge, Denies sinus pain and Denies sore throat Card Denies chest pain, Denies lightheadedness and Denies dyspnea Resp Denies cough, Denies dyspnea and Denies wheezing GI Denies abdominal pain Musc Denies myalgias Skin/Breast Reports as per HPI Neuro Denies dizziness and Denies headache(s) Aller/Immun Denies wheezing Physical exam (Primary Care) Vital Signs: Last Vital Signs Pulse 90 01/11/23 13:57 BP 102/70 01/11/23 13:57 Pulse Ox 86 L 01/11/23 13:57 Oxygen Delivery Method Nasal Cannula 01/11/23 13:57 Tobacco/Smoking Status: Tobacco use Status Tobacco use date assessed 01/11/23 01/11/23 13:58 Patient Tobacco Use Status Former Tobacco user 01/11/23 13:58 Tobacco use type Cigarette 01/11/23 13:58 e-Cigarette/Vaping Use Never Used 01/11/23 13:58 Thrive Assessment: Date of Thrive Assessment Date Thrive assessed 04/05/22 01/11/23 13:58 Const Other: Patient in wheelchair General: cooperative and no acute distress Orientation/consciousness: patient oriented x3 HENMT Head: Yes normocephalic and Yes atraumatic Face and sinus: Yes sinuses nontender Mouth: oropharynx normal and moist mucous membranes Throat: Yes posterior oropharynx normal Eyes General: appearance normal, both eyes and all related structures Neck Neck: Yes normal visual inspection and Yes full ROM Resp Other: Oxygen 4 L via nasal cannula Effort & Inspection: normal respiratory effort and able to speak in complete sentences Auscultation: clear to auscultation bilaterally, no crackles, no rales, no rhonchi and no wheezes Cardio Rate: regular rate Rhythm: regular rhythm Heart sounds: S1 normal heart sound present and S2 normal heart sound present GI Auscultation: normal bowel sounds Skin Other: Left heel small scab dry clean intact, no signs of infection noted Left hip small surgical incision healed, no signs of infection noted Neuro General: patient oriented x3 Extrem Other: Bilateral foot with edema +1, nonpitting Results AMB Hemoglobin A1c AMB Hemoglobin A1c 7.2 % Last Edit by DIPIKA Sykes on 01/11/23 14:39 Assessment and Plan Assessment & Plan (1) Hospital discharge follow-up: Code(s): Z09 - Encounter for follow-up examination after completed treatment for conditions other than malignant neoplasm Plan: Will repeat blood work (2) Closed left femoral fracture: Comment: ORIF 08/12/2022 Code(s): S72.92XA - Unspecified fracture of left femur, initial encounter for closed fracture Plan: Will follow-up on PT order, incision healed Patient does not see orthopedic anymore (3) Type 2 diabetes mellitus with hyperglycemia: Code(s): E11.65 - Type 2 diabetes mellitus with hyperglycemia Qualifiers: Diabetes mellitus dedicated intermodal truck driver insulin use: without halfway use Qualified Code(s): E11.65 - Type 2 diabetes mellitus with hyperglycemia Plan: A1c 7.2 today, goal less than 7 Continue metformin daily and Lantus 29 units at bedtime Low-carbohydrate diet (4) Congestive heart failure: Comment: Patient has mild diastolic type congestive heart failure, Has been seen by Dr. Power, his note indicates that there is no definite underlying cardiac etiology for congestive heart failure. It may be due to pulmonary hypertension, which in turn is probably due to pulmonary vascular disease. Patient and her daughter discussed with me about further intervention such as cardiac catheterization. I think this lady is quite frail at this time , and she also expressed that she is not keen to undergo any interventional procedures. Code(s): I50.9 - Heart failure, unspecified Plan: Will follow-up on cardiology referral Continue furosemide Low-sodium diet (5) H/O: lung cancer: Comment: Status post left upper lobectomy in 2019 for carcinoma of the lung, Luckily there has been no recurrence. Code(s): Z85.118 - Personal history of other malignant neoplasm of bronchus and lung Plan: Continue to follow-up with pulmonology Dr. Coleman Plan Follow-up with PCP in 3 months or sooner as needed Orders: Orders Complete Blood Count Auto Diff Today S72.92XA - Unspecified fracture of left femur, initial encounter for closed fracture AKIKO Rodriguez AMB Hemoglobin A1c Today E11.65 - Type 2 diabetes mellitus with hyperglycemia Rigoberto Ortiz MD Comprehensive Met. Panel Today S72.92XA - Unspecified fracture of left femur, initial encounter for closed fracture AKIKO Rodriguez Coding Level of Care Code Est Pt Level 4 (66107) Diagnoses Hospital discharge follow-up Z09 Closed left femoral fracture S72.92XA Type 2 diabetes mellitus with hyperglycemia, without long-term current use of insulin E11.65 Diabetes mellitus halfway insulin use: without dedicated intermodal truck driver use Congestive heart failure I50.9 H/O: lung cancer Z85.118
== END 2023-01-11 14:49 | disposition home or self-care (01) ==
PROVIDERS: PCP Internal Medicine; Visit Provider Internal Medicine
DX: E11.65 Type 2 diabetes mellitus with hyperglycemia (principal); S72.92XA Unspecified fracture of left femur, initial encounter for closed fracture; I50.9 Heart failure, unspecified; Z09 Encounter for follow-up examination after completed treatment for conditions other than malignant neoplasm; Z85.118 Personal history of other malignant neoplasm of bronchus and lung
CPT/HCPCS: 83036; 99214

== ENCOUNTER 2023-04-14 14:00 | Outpatient (AMB) | payer MEDICARE, OTHER, SELFPAY ==
[2023-04-14 14:03] VITALS: BP 98/62; PULSE 87
--- NOTE | 2023-04-14 14:03 | MHC.PC.OV ---
Vital Signs 04/14/23 14:03 Height 5 ft 8 in BMI Reason not done Patient refused/unable BP 98/62 Blood Pressure Location Lt brachial Position Sitting Pulse 87 Pulse Source Pulse Oximeter Temp Source Skin Oxygen Delivery Method Nasal Cannula Oxygen Flow Rate 4 Intake Visit Reasons: DM Public Health Epidemiologist Required: No Allergies No Known Allergies [No Known Allergies*] Allergy (Verified 04/14/23 14:03) Medication List - Last Reconciled 04/14/23 by Rigboerto Ortiz MD alendronate 70 mg PO QWEEK blood sugar diagnostic ([employer] No Coding strips) As directed check the BS BID blood-glucose meter ([employer] Autocode Meter kit) As directed calcium carbonate (Oyster Shell Calcium) 500 mg PO DAILY cholecalciferol (vitamin D3) 50 mcg PO DAILY 90 days compress.stocking,knee,reg,lrg As directed 20 30 mm HG cyanocobalamin (vitamin B-12) 1,000 mcg PO DAILY 90 days flash glucose scanning reader (Disruptor Beamyle Mary 2 [place]) As directed flash glucose sensor (Disruptor Beamyle Mary 2 Sensor kit) As directed insulin glargine (Lantus Solostar U-100 Insulin) 29 units (0.29 mL) subcut BEDTIME lancets ([employer] Lancets) As directed metformin 1,000 mg PO DAILY miscellaneous medical supply 1 ea miscellaneous QID nystatin 1 appl topical TID nystatin 1 appl topical BID Oxygen Home Use As directed 4L NC pen needle, diabetic (BD Ultra-Fine Shy Pen Needle) As directed prednisone 5 mg PO DAILY sildenafil (pulm.hypertension) 40 mg PO TID torsemide 20 mg PO TID tramadol 50 mg PO DAILY PRN 30 days Tobacco use date assessed: 04/14/23 Fall risk assessment: No Falls in past year Last assessed Fall Risk: 04/14/23 HPI DM HPI Details 78-year-old female with diabetes mellitus congestive heart failure history of lung cancer coming in for follow-up. Last seen in January 2023 had left femoral fracture. Review of the notes follows up with lung cancer screening program has had left upper lobe wedge resection the Jennifer and completion lobectomy mediastinal lymphadenectomy September 2018 stage I squamous cell cancer most recent CT scan is February 2023(CT scan every 6 months for 2 years then yearly for 3 years.) Received a note also for a left heel ulcer with wound care January 28 last blood work was October 2022 creatinine of 1.2 blood sugar at that time was 01:43 GFR is a 46 BNP [address] [facility] Medical History (Updated 04/14/23 @ 14:44 by Rigoberto Ortiz MD) Hypertension Congestive heart failure H/O: lung cancer COPD (chronic obstructive pulmonary disease) Pulmonary hypertension Vitamin D deficiency Vitamin B12 deficiency Carotid aneurysm, left Cholelithiasis Adrenal adenoma Lung cancer (~2018) Hypercholesterolemia Type 2 diabetes mellitus with hyperglycemia Surgical History History of cataract surgery (~2019) History of lobectomy of lung (~2018) Family History Father No problems noted. Mother Stroke Social History Household Members: Family Housing: House Do you presently have visiting nurse or other home services: No Alcohol intake: never Patient Tobacco Use Status: Former Tobacco user Tobacco use type: Cigarette e-Cigarette/Vaping Use: Never Used Second Hand Smoke Exposure: No service: No Current occupational status: retired Cognitive needs: No Hearing needs: No Vision needs: Yes Questionnaire PHQ-9 Over the last 2 weeks, how often have you been bothered by any of the following problems? 1. Little interest or pleasure in doing things: not at all 2. Feeling down, depressed, or hopeless: not at all 3. Trouble falling or staying asleep, or sleeping too much: not at all 4. Feeling tired or having little energy: not at all 5. Poor appetite or overeating: not at all 6. Feeling bad about yourself - or that you are a failure or have let yourself or your family down: not at all 7. Trouble concentrating on things, such as reading the newspaper or watching television: not at all 8. Moving or speaking so slowly that other people could have noticed. Or the opposite - being so fidgety or restless that you have been moving around a lot more than usual: not at all 9. Thoughts that you would be better off or of hurting yourself in some way: not at all Total score: 0 Depression Screening Interpretation: Negative Depression Screening Done: Yes Source: Developed by Drs. Ozzy Flores, Annabelle Rajan, Huey Dominguez and colleagues, with an educational edie from [employer]. Thrive Questionnaire Date Thrive assessed: 04/14/23 I am a: Patient What is your living situation today?: I have a steady place to live Within the past 12 months, did the food you bought not last and you didn't have the money to get more?: Never true Within the past 12 months, did you worry whether your food would run out before you got money to buy more?: Never true Do you have trouble paying for medicines?: No Do you have trouble getting transportation to medical appointments?: No Do you have trouble paying your heating and electricity bill?: No Do you have trouble taking care of your child, family member or friend?: No Do you have trouble with day-to-day activities such as bathing, preparing meals, shopping, managing finances, etc.?: No Are you currently unemployed and looking for a job?: No Are you interested in more education?: No Please select the resources that you would like help with: None THRIVE Score: 0 AUDIT C Alcohol Use Questionnaire (AUDIT-C) 1. How often do you have a drink containing alcohol?: Never 2. How many drinks containing alcohol do you have on a typical day when you are drinking?: 1 or 2 (0) 3. How often do you have six or more drinks on one occasion?: Never Total Score: 0 Score Reviewed/Action Taken: No SOLITARIO-7 AMB Questionnaire SOLITARIO-7 Date SOLITARIO - 7 assessed: 04/14/23 Source: Developed by Drs. Ozzy Flores, Annabelle Rajan, Huey Dominguez and colleagues, with an educational edie from [employer]. Physical exam (Primary Care) Vital Signs: Last Vital Signs Pulse 87 04/14/23 14:03 BP 98/62 04/14/23 14:03 Oxygen Delivery Method Nasal Cannula 04/14/23 14:03 Oxygen Flow Rate 4 04/14/23 14:03 Tobacco/Smoking Status: Tobacco use Status Tobacco use date assessed 04/14/23 04/14/23 14:04 Patient Tobacco Use Status Former Tobacco user 04/14/23 14:04 Tobacco use type Cigarette 04/14/23 14:04 e-Cigarette/Vaping Use Never Used 04/14/23 14:04 PHQ-9: PHQ-9 Score PHQ-9: Total score 0 04/14/23 14:29 Depression Screening Interpretation: Negative Thrive Assessment: Date of Thrive Assessment Date Thrive assessed 04/14/23 04/14/23 14:04 Const General: alert; No acute distress Eyes Conjunctivae: conjunctivae normal Resp Auscultation: clear to auscultation bilaterally Cardio Rate: regular rate Rhythm: regular rhythm GI Inspection: Yes normal to inspection Extrem General: Yes normal to inspection and No edema Results AMB Hemoglobin A1c AMB Hemoglobin A1c 6.0 % Last Edit by DIPIKA Sykes on 04/14/23 14:48 Assessment and Plan Assessment & Plan (1) H/O: lung cancer: Comment: Status post left upper lobectomy in 2019 for carcinoma of the lung, Luckily there has been no recurrence. February 2023 lung cancer screening yearly now for 3 years Code(s): Z85.118 - Personal history of other malignant neoplasm of bronchus and lung Plan: Patient is being followed up by the thoracic surgeon for the lung cancer screening program last CT scan was done February 2023 and yearly now for 3 years (2) COPD (chronic obstructive pulmonary disease): Comment: Patient has past history of smoking. She has shortness of breath on exertion. Clinically I think she has chronic obstructive pulmonary disease. Pulmonary function test does not show any significant obstructive airway disorder. [place] : Continue use of oxygen for hypoxemia. Does not need any bronchodilators or inhaled steroids. Code(s): J44.9 - Chronic obstructive pulmonary disease, unspecified (3) Type 2 diabetes mellitus with hyperglycemia: Code(s): E11.65 - Type 2 diabetes mellitus with hyperglycemia Qualifiers: Diabetes mellitus extermination inspector insulin use: without custodial use Qualified Code(s): E11.65 - Type 2 diabetes mellitus with hyperglycemia Plan: Decrease the amount of carbohydrate intake, pasta, bread, rice and potatoes are all sugar and that is aside from all the sweet stuff, remember that fruits are good but they are Sweet also. Hemoglobin A1c goal of less than 7.0 presently on Lantus at 29 units metformin 1000 mg once a day (4) Hypercholesterolemia: Code(s): E78.00 - Pure hypercholesterolemia, unspecified Plan: Avoid fried foods, chicken skin, eggs, butter margarine, pastries and meat. Be it pork or beef they have a lot of cholesterol LDL goal of less than 100 and triglyceride of less than 150. Patient needs blood work (5) Chronic heart failure with preserved ejection fraction (HFpEF): Code(s): I50.32 - Chronic diastolic (congestive) heart failure Plan: Continue with diuretics and continue to follow-up on renal function September 2022 last blood work (6) Blister of left heel: Code(s): S90.822A - Blister (nonthermal), left foot, initial encounter (7) Hypertension: Code(s): I10 - Essential (primary) hypertension Qualifiers: Hypertension type: essential hypertension Qualified Code(s): I10 - Essential (primary) hypertension Plan: Continue with blood pressure medication. Decrease salt intake and exercise (8) Osteoporosis: Comment: History of left femoral fracture Code(s): M81.0 - Age-related osteoporosis without current pathological fracture Plan: On alendronate (9) Skin lesion: Comment: chest 2 cm Code(s): L98.9 - Disorder of the skin and subcutaneous tissue, unspecified (10) Foul smelling urine: Code(s): R82.90 - Unspecified abnormal findings in urine Orders: Orders AMB Hemoglobin A1c Today E11.65 - Type 2 diabetes mellitus with hyperglycemia XR DEXA axial skeleton Today M81.0 - Age-related osteoporosis without current pathological fracture Complete Blood Count Auto Diff Today E11.65 - Type 2 diabetes mellitus with hyperglycemia Comprehensive Met. Panel Today E11.65 - Type 2 diabetes mellitus with hyperglycemia Vitamin B12 and Folate Today E11.65 - Type 2 diabetes mellitus with hyperglycemia Vitamin D 25-OH Total Today E11.65 - Type 2 diabetes mellitus with hyperglycemia Microalbumin, Random (w Creat) Today E11.65 - Type 2 diabetes mellitus with hyperglycemia Creatinine Urine Today E11.65 - Type 2 diabetes mellitus with hyperglycemia UA CC w/rflx Micro + Cult Today I50.32 - Chronic diastolic (congestive) heart failure, R30.0 - Dysuria Free T4 (Free Thyroxine) Today E11.65 - Type 2 diabetes mellitus with hyperglycemia Lipid Panel Today E11.65 - Type 2 diabetes mellitus with hyperglycemia, E78.00 - Pure hypercholesterolemia, unspecified Thyroid Stimulating Hormone Today E11.65 - Type 2 diabetes mellitus with hyperglycemia B Type Natriuretic Peptide Today I50.32 - Chronic diastolic (congestive) heart failure Referrals Dermatology Referral L98.9 - Disorder of the skin and subcutaneous tissue, unspecified Cardiology Referral I50.32 - Chronic diastolic (congestive) heart failure Medications: Refilled tramadol 50 mg PO DAILY 30 days PRN 30 tabs 2RF pain M17.9 - Osteoarthritis of knee, unspecified, S72.92XA - Unspecified fracture of left femur, initial encounter for closed fracture Coding Level of Care Code Est Pt Level 4 (48867) Diagnoses H/O: lung cancer Z85.118 COPD (chronic obstructive pulmonary disease) J44.9 Type 2 diabetes mellitus with hyperglycemia, without long-term current use of insulin E11.65 Diabetes mellitus extermination inspector insulin use: without custodial use Hypercholesterolemia E78.00 Chronic heart failure with preserved ejection fraction (HFpEF) I50.32 Blister of left heel S90.822A Essential hypertension I10 Hypertension type: essential hypertension Osteoporosis M81.0 Skin lesion L98.9 Foul smelling urine R82.90
== END 2023-04-14 15:04 | disposition home or self-care (01) ==
PROVIDERS: PCP Internal Medicine; Visit Provider Internal Medicine
DX: J44.9 Chronic obstructive pulmonary disease, unspecified (principal); E11.65 Type 2 diabetes mellitus with hyperglycemia; I50.32 Chronic diastolic (congestive) heart failure; Z85.118 Personal history of other malignant neoplasm of bronchus and lung; E78.00 Pure hypercholesterolemia, unspecified; S90.822A Blister (nonthermal), left foot, initial encounter; I10 Essential (primary) hypertension; M81.0 Age-related osteoporosis without current pathological fracture; L98.9 Disorder of the skin and subcutaneous tissue, unspecified; R82.90 Unspecified abnormal findings in urine
CPT/HCPCS: 83036; 99214

== ENCOUNTER 2023-04-28 13:35 | Outpatient (REF) | payer MEDICARE, OTHER, SELFPAY ==
--- NOTE | ~2023-04-28 | MM_ITS ---
EXAMINATION: BONE DENSITOMETRY CLINICAL INDICATION: Age-related osteoporosis without current pathological fracture. COMPARISON: This is the patient's baseline examination. TECHNIQUE: Using a [employer] DXA System (software version: 13.1) manufactured by [employer], dual-energy x-ray absorptiometry was performed of the lumbar spine and right hip. The images are of good technical quality. Summary results are attached. FINDINGS: RIGHT FEMUR, NECK: BMD 0.866 g/cm2, Z-score 0.8, T-score -1.2, osteopenia. RIGHT FEMUR, TOTAL: BMD 0.684 g/cm2, Z-score -0.7, T-score -2.6, osteoporosis. AP SPINE L1-L4: BMD 0.959 g/cm2, Z-score -0.1, T-score -1.8, osteopenia. IDENTIFIED RISK FACTORS: Glucocorticoids (chronic), history of fracture (adult), menopause. HISTORY OF FRACTURE: Hip. MEDICATIONS: Calcium, vitamin D. MM/XR DEXA axial skeleton IMPRESSION: 1. DIAGNOSIS: Severe osteoporosis based on the lowest T-score value of -2.6 in the total femur and history of fracture applying World Health Organization criteria. 2. 10-YEAR FRACTURE RISK PREDICTION, FRAX: According to the guidelines, FRAX calculation should only be performed on patients in the osteopenia bone density category. Therefore, FRAX was not performed on this patient.? 3. Treatment Recommendations: NOF guidelines recommend consideration for treatment in postmenopausal women and men age 50 and older presenting with the following: -A hip or vertebral (clinical or morphometric) fracture. -T-score less than or equal to -2.5 at the femoral neck or spine after appropriate evaluation to exclude secondary causes. -Low bone mass at the hip or spine and a 10-year fracture probability by FRAX of greater than or equal to 3% for hip fracture or greater than or equal to 20% for major osteoporotic fracture based on the [place] adapted WHO algorithm. 4. Other Recommendations: All treatment decisions require clinical judgment and consideration of individual patient factors, including patient preferences, comorbidities, previous drug use, risk factors not captured in the FRAX model (e.g. frailty, falls, vitamin D deficiency, increased bone turnover, interval significant decline in bone density) and possible under or overestimation of fracture risk by FRAX. Additional medical evaluation for secondary cause of low bone mineral density may be appropriate. FUTURE SCAN RECOMMENDATION: People with diagnosed cases of osteoporosis or at high risk for fracture should have regular bone mineral density tests. For patients eligible for Medicare, routine testing is allowed once every 2 years. The testing frequency can be increased to one year for patients who have rapidly progressing disease, those who are receiving or discontinuing medical therapy to restore bone mass, or have additional risk factors.
== END 2023-04-28 13:36 | disposition home or self-care (01) ==
LOC: HO.MAMMO 13:35
PROVIDERS: PCP Internal Medicine; Visit Provider Internal Medicine
DX: Z13.820 Encounter for screening for osteoporosis (principal); Z78.0 Asymptomatic menopausal state; M81.0 Age-related osteoporosis without current pathological fracture
CPT/HCPCS: 77080

== ENCOUNTER 2023-05-08 15:09 | Outpatient (REF) | payer MEDICARE, OTHER, SELFPAY ==
[2023-05-08 15:30] LABS: MANUAL DIFF FLAG NO
[2023-05-08 16:13] LABS: Basophils Percent Auto 0.5 % (0-2); Eosinophils Percent Auto 0.5 % (0-4); Hematocrit 45.2 % (37.0-47.0); Hemoglobin 14.6 g/dl (12.0-16.0); Imm Gran Abs Auto 0.02 X10*3/uL (0.00-0.03); Imm Gran Pct Auto 0.3 % (0.0-0.4); Lymphocytes Absolute Auto 1.3 X10*3/uL (1.2-4.9); Lymphocytes Percent Auto 16.5 % (20-40); Mean Corpuscular HGB Conc 32.3 g/dl (31.0-35.0); Mean Corpuscular Hemoglobin 27.9 pg (27.0-33.0); Mean Corpuscular Volume 86.4 fL (80.0-98.0); Mean Platelet Volume 9.7 fL (9.4-12.3); Monocytes Absolute Auto 0.6 X10*3/uL (0.1-1.2); Monocytes Percent Auto 7.1 % (2-11); Neutrophils Percent Auto 75.1 % (45-73); Platelet Count 283 X10*3/uL (160-400); Red Blood Count 5.23 X10*6/uL (4.20-5.50); White Blood Count 7.9 X10*3/uL (4.8-10.8)
[2023-05-08 16:48] LABS: B Type Natriuretic Peptide 1491 pg/mL (<100)
[2023-05-08 17:01] LABS: Free T4 (Free Thyroxine) 1.41 ng/dL (0.71-1.85); Thyroid Stimulating Hormone 2.09 uIU/mL (0.32-4.0); Vitamin D 25-OH Total 46.9 ng/mL (>30)
[2023-05-08 17:05] LABS: Alanine Aminotransferase 29 U/L (0-31); Albumin Level 3.9 g/dL (3.5-5.0); Alkaline Phosphatase 76 U/L (39-117); Anion Gap 20 (12-20); Aspartate Amino Transferase 38 U/L (5-31); Bilirubin Total 0.7 mg/dL (0.0-1.0); Blood Urea Nitrogen 34 mg/dL (9-16); Calcium 10.7 mg/dL (8.4-10.2); Carbon Dioxide 29 mmol/L (22-29); Chloride 101 mmol/L (96-108); Cholesterol 125 mg/dL (<200); Estimated Glomerular Filt Rate 35; HDL Cholesterol 60 mg/dL (>40); LDL Cholesterol Calculated 51 mg/dL (<100); Potassium 4.2 mmol/L (3.3-5.1); Sodium 146 mmol/L (135-145); Total Protein 7.3 g/dL (6.5-8.0); Triglycerides 72 mg/dL (<150)
[2023-05-08 17:20] LABS: Vitamin B12 > 2000 pg/mL (200-900)
[2023-05-08 18:10] LABS: Glucose Random 31 mg/dL (60-115)
== END 2023-05-08 15:10 | disposition home or self-care (01) ==
LOC: HO.LAB 15:09
PROVIDERS: PCP Internal Medicine; Visit Provider Internal Medicine
DX: E11.65 Type 2 diabetes mellitus with hyperglycemia (principal); E78.00 Pure hypercholesterolemia, unspecified; I50.32 Chronic diastolic (congestive) heart failure; R30.0 Dysuria; S72.92XA Unspecified fracture of left femur, initial encounter for closed fracture; X58.XXXA Exposure to other specified factors, initial encounter; Y93.9 Activity, unspecified; Y92.9 Unspecified place or not applicable; Y99.9 Unspecified external cause status
CPT/HCPCS: 36415; 80053; 80061; 82306; 82607; 82746; 83880; 84439; 84443; 85025

== ENCOUNTER 2023-05-09 16:41 | Outpatient (REF) | payer MEDICARE, OTHER, SELFPAY ==
[2023-05-09 17:03] LABS: Appearance Urine Turbid; Color Urine Yellow; Glucose Urine UA Negative (Negative); Leukocyte Esterase Urine Large (3+) (Negative); Nitrite Urine Negative (Negative); PH 6.5 (5.0-9.0); Specific Gravity - Urine 1.015 (1.005-1.025); UMIC TRIGGER UACC YES; Urine Blood Small (1+) (Negative); Urine Ketones Negative (Negative); Urine Protein Trace mg/dL (Neg-Trace)
[2023-05-09 17:13] LABS: Bacteria Urine 4+ (None Seen); UACC Culture Trigger YES; WBC Urine >50 /HPF (0-5)
[2023-05-09 18:05] LABS: Creatinine Urine 51.92 mg/dL; Microalbum/Creatinine Ratio Ur 134.8 ug/mg cr (<30)
== END 2023-05-09 16:42 | disposition home or self-care (01) ==
LOC: HO.LNP 16:41
PROVIDERS: Visit Provider Internal Medicine
DX: E11.65 Type 2 diabetes mellitus with hyperglycemia (principal); R30.0 Dysuria; I11.0 Hypertensive heart disease with heart failure; I50.32 Chronic diastolic (congestive) heart failure
CPT/HCPCS: 81001; 81003; 82043; 82570; 87086; 87088; 87186